=== PATIENT | female | born 1980 | race Caucasian/White ===

== ENCOUNTER 2016-10-07 12:10 | Emergency (ER) | payer MEDICAID ==
[2016-10-07] MEDS ORDERED: ONDANSETRON 4 MG TAB.RAPDIS PO ONE (12:23)
--- NOTE | 2016-10-07 12:23 | ER Document Report ---
ED Medical Screen (RME) - General Stated Complaint: ABDOMINAL PAIN Mode of Arrival: Wheelchair Information source: Patient Notes: Patient complains of abdominal pain that started after eating this morning. Patient complains of nausea and diarrhea. Patient denies any vomiting. Patient denies any fever or urinary symptoms. hx: Diabetes, cholecystectomy I have greeted and performed a rapid initial assessment of this patient. A comprehensive ED assessment and evaluation of the patient, analysis of test results and completion of the medical decision making process will be conducted by additional ED providers. TRAVEL OUTSIDE OF THE [place] IN LAST 30 DAYS: No - Related Data Allergies/Adverse Reactions: Penicillins Allergy (Verified 10/07/16 12:21) Past Medical History Endocrine Medical History: Reports: Hx Diabetes Mellitus Type 2 Renal/ Medical History: Reports: Hx Kidney Stones GI Medical History: Reports: Hx Ulcer, Hx Colonoscopy, Hx Endoscopy Psychiatric Medical History: Reports: Hx Depression Past Surgical History: Reports: Hx Section, Hx Cholecystectomy, Hx Kidney (Renal Surgery) - lazer for stones - Immunizations Immunizations up to date: Yes Hx Diphtheria, Pertussis, Tetanus Vaccination: Yes Physical Exam - Vital signs Vitals: Temp Pulse Resp BP Pulse Ox 98.1 F 94 18 113/69 98 10/07/16 12:20 10/07/16 12:20 10/07/16 12:20 10/07/16 12:20 10/07/16 12:20 - Abdominal Tenderness: Tender - Upper abdomen Course - Vital Signs Vital signs: Temp Pulse Resp BP Pulse Ox 98.1 F 94 18 113/69 98 10/07/16 12:20 10/07/16 12:20 10/07/16 12:20 10/07/16 12:20 10/07/16 12:20
[2016-10-07 13:00] LABS: ABSOLUTE BASOPHILS # (AUTO) 0.1 10^3/uL (0.0-0.2); ABSOLUTE EOSINOPHILS # (AUTO) 0.2 10^3/uL (0.0-0.6); ABSOLUTE LYMPHOCYTES (AUTO) 1.8 10^3/uL (0.5-4.7); ABSOLUTE MONOCYTES (AUTO) 0.5 10^3/uL (0.1-1.4); ABSOLUTE NEUT (AUTO) 8.1 10^3/uL (1.7-8.2); BASOPHILS % (AUTO) 0.6 % (0-2); EOSINOPHILS % (AUTO) 2.2 % (0-6); HEMATOCRIT 40.6 % (36.0-47.0); HEMOGLOBIN 12.9 g/dL (12.0-15.5); HGB HCT DIFFERENCE -1.9; LYMPHOCYTES % (AUTO) 17.1 % (13-45); MEAN CORPUSCULAR HEMOGLOBIN 26.9 pg (27.0-33.4); MEAN CORPUSCULAR HGB CONC 31.8 g/dL (32.0-36.0); MEAN CORPUSCULAR VOLUME 85 fl (80-97); MONOCYTES % (AUTO) 4.4 % (3-13); RED CELL DISTRIBUTION WIDTH 13.5 % (11.5-14.0); SEGMENTED NEUTROPHILS % (AUTO) 75.7 % (42-78); WHITE BLOOD COUNT 10.7 10^3/uL (4.0-10.5)
[2016-10-07 13:10] LABS: APPEARANCE,URINE CLEAR; BILIRUBIN,URINE NEGATIVE (NEGATIVE); GLUCOSE, URINE >=500 mg/dL (NEGATIVE); KETONES,URINE NEGATIVE (NEGATIVE); LEUKOCYTE ESTERASE,URINE NEGATIVE (NEGATIVE); NITRITE,URINE NEGATIVE (NEGATIVE); PROTEIN,URINE NEGATIVE (NEGATIVE); URINE SPECIFIC GRAVITY 1.031; UROBILINOGEN,URINE NEGATIVE mg/dL (<2.0)
[2016-10-07 13:19] LABS: ALANINE AMINOTRANSFERASE 20 U/L (9-52); ALBUMIN 3.7 g/dL (3.5-5.0); ALKALINE PHOSPHATASE 94 U/L (38-126); ANION GAP 13 (5-19); ASPARTATE AMINO TRANSFERASE 17 U/L (14-36); BILIRUBIN,TOTAL 0.3 mg/dL (0.2-1.3); BLOOD UREA NITROGEN 12 mg/dL (7-20); CALCIUM 9.7 mg/dL (8.4-10.2); CARBON DIOXIDE 30 mmol/L (22-30); CHLORIDE 94 mmol/L (98-107); LIPASE 170.9 U/L (23-300); POTASSIUM 5.1 mmol/L (3.6-5.0); SODIUM 137.2 mmol/L (137-145); TOTAL PROTEIN 7.3 g/dL (6.3-8.2)
[2016-10-07 13:29] LABS: GLUCOSE 525 mg/dL (75-110)
[2016-10-07] MEDS ORDERED: INSULIN REG, HUMAN 100 UNIT/ML 3 ML VIAL (PYX) SUBCUT ONE (13:37)
[2016-10-07] MEDS ORDERED: NORMAL SALINE 1000 ML 1,000 ML IV PRN (13:37)
[2016-10-07] MEDS ORDERED: DICYCLOMINE HCL INJ 20 MG/2 ML AMPULE IM PRN (13:46)
[2016-10-07] MEDS ORDERED: MORPHINE SULFATE 10 MG/ML INJ IV ONE (13:46)
[2016-10-07 15:26] VITALS: BP 112/68
--- NOTE | 2016-10-07 16:23 | ER Document Report ---
ED General - General Chief Complaint: Abdominal Pain Stated Complaint: ABDOMINAL PAIN Mode of Arrival: Wheelchair Information source: Patient Notes: 36 yr old female with hx of diabetes who takes 30 units of insulin daily presents with compalitns of abd pain and nausea. pt notes she ate this monirng, then had 4 episodes of diarrhea immediately. denies any fevers or chills TRAVEL OUTSIDE OF THE [place] IN LAST 30 DAYS: No - HPI Onset: Just prior to arrival Onset/Duration: Sudden Quality of pain: Sharp Severity: Mild Pain Level: 1 Associated symptoms: Diarrhea, Nausea, Vomiting Exacerbated by: Denies Relieved by: Denies Similar symptoms previously: No Recently seen / treated by doctor: No - Related Data Allergies/Adverse Reactions: Penicillins Allergy (Verified 10/07/16 12:21) Past Medical History - General Information source: Patient - Social History Smoking Status: Never Smoker Cigarette use (# per day): No Chew tobacco use (# tins/day): No Smoking Education Provided: No Frequency of alcohol use: None Drug Abuse: None Family History: Arthritis, CVA, DM, Hypertension, Malignancy Patient has suicidal ideation: No Patient has homicidal ideation: No Endocrine Medical History: Reports: Hx Diabetes Mellitus Type 2 Renal/ Medical History: Reports: Hx Kidney Stones. Denies: Hx Peritoneal Dialysis GI Medical History: Reports: Hx Ulcer, Hx Colonoscopy, Hx Endoscopy Psychiatric Medical History: Reports: Hx Depression Past Surgical History: Reports: Hx Section, Hx Cholecystectomy, Hx Kidney (Renal Surgery) - lazer for stones - Immunizations Immunizations up to date: Yes Hx Diphtheria, Pertussis, Tetanus Vaccination: Yes Review of Systems - Review of Systems Notes: REVIEW OF SYSTEMS: CONSTITUTIONAL : Denies fever, chills, or sweats. Denies recent illness. EENT: Denies eye, ear, throat, or mouth pain or symptoms. Denies nasal or sinus congestion or discharge. Denies throat, tongue, or mouth swelling or difficulty swallowing. CARDIOVASCULAR: Denies chest pain. Denies palpitations or racing or irregular heart beat. Denies ankle edema. RESPIRATORY: Denies cough, cold, or chest congestion. Denies shortness of breath, difficulty breathing, or wheezing. GASTROINTESTINAL: Admits to abdominal pain nausea vomiting diarrhea GENITOURINARY: Denies difficulty urinating, painful urination, burning, frequency, blood in urine, or discharge. FEMALE GENITOURINARY: Denies vaginal bleeding, heavy or abnormal periods, irregular periods. Denies vaginal discharge or odor. MUSCULOSKELETAL: Denies back or neck pain or stiffness. Denies joint pain or swelling. SKIN: Denies rash, lesions or sores. HEMATOLOGIC : Denies easy bruising or bleeding. LYMPHATIC: Denies swollen, enlarged glands. NEUROLOGICAL: Denies confusion or altered mental status. Denies passing out or loss of consciousness. Denies dizziness or lightheadedness. Denies headache. Denies weakness or paralysis or loss of use of either side. Denies problems with gait or speech. Denies sensory loss, numbness, or tingling. Denies seizures. PSYCHIATRIC: Denies anxiety or stress. Denies depression, suicidal ideation, or homicidal ideation. ALL OTHER SYSTEMS REVIEWED AND NEGATIVE. Dictation was performed using [employer] voice recognition software PHYSICAL EXAMINATION: GENERAL: Well-appearing, well-nourished and in no acute distress. HEAD: Atraumatic, normocephalic. EYES: Pupils equal round and reactive to light, extraocular movements intact, conjunctiva are normal. ENT: Nares patent, oropharynx clear without exudates. Moist mucous membranes. NECK: Normal range of motion, supple without lymphadenopathy LUNGS: Breath sounds clear to auscultation bilaterally and equal. No wheezes rales or rhonchi. HEART: Regular rate and rhythm without murmurs ABDOMEN: Soft, nontender, nondistended abdomen. No guarding, no rebound. No masses appreciated. Female : deferred Musculoskeletal: Normal range of motion, no pitting or edema. No cyanosis. NEUROLOGICAL: Cranial nerves grossly intact. Normal speech, normal gait. Normal sensory, motor exams PSYCH: Normal mood, normal affect. SKIN: Warm, Dry, normal turgor, no rashes or lesions noted. Physical Exam - Vital signs Vitals: Temp Pulse Resp BP Pulse Ox 98.1 F 94 18 113/69 98 10/07/16 12:20 10/07/16 12:20 10/07/16 12:20 10/07/16 12:20 10/07/16 12:20 Course - Re-evaluation Re-evalutation: 10/07/16 16:26 On evaluation patient is in no distress. Her glucose has improved significantly with insulin fluids. Patient's pain has completely resolved and has no tenderness on palpation. 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 Also, there is no evidence or peritonitis , sepsis, or toxicity. The patient and I have discussed the diagnosis and risks , and we agree with discharging home with close follow-up with the understanding that symptoms and presentations can change. We also discussed returning to the Emergency Department immediately if new or worsening symptoms occur. We have discussed the symptoms which are most concerning (e.g., bloody stool, fever, changing or worsening pain, vomiting) that necessitate immediate return. - Vital Signs Vital signs: Temp Pulse Resp BP Pulse Ox 98.1 F 90 16 112/68 96 10/07/16 12:20 10/07/16 15:25 10/07/16 15:25 10/07/16 15:25 10/07/16 15:25 - Laboratory Result Diagrams: 10/07/16 12:30 10/07/16 12:30 Laboratory results interpreted by me: 10/07/16 10/07/16 10/07/16 12:30 12:30 12:30 WBC 10.7 H MCH 26.9 L MCHC 31.8 L Potassium 5.1 H Chloride 94 L Glucose 525 H* POC Glucose Urine Glucose (UA) >=500 H Urine Blood SMALL H 10/07/16 10/07/16 15:01 16:06 WBC MCH MCHC Potassium Chloride Glucose POC Glucose 253 H 229 H Urine Glucose (UA) Urine Blood Critical Care Note - Critical Care Note Total time excluding time spent on procedures (mins): 34 Comments: 34 minutes of critical care time spent in direct contact evaluating and reevaluating the patient, treating symptoms, reviewing labs and studies and speaking with family and consultants excluding any procedures Discharge - Discharge Clinical Impression: Hyperglycemia, Nausea, vomiting, and diarrhea Diabetes Qualifiers: Diabetes mellitus type: type 2 Diabetes mellitus complication status: without complication 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 Not all high blood sugar requires long-term treatment. High blood sugar can be due to medications, , or the stress of illness. (These cases are "borderline diabetes.") If the doctor feels your high blood sugar might resolve with time, you may not require treatment now. You will be scheduled for further evaluation. It's very important that you follow through, to see if the blood sugar returns to normal levels. Uncontrolled high blood sugar leads to early heart disease, strokes, nerve damage, eye damage, and kidney damage. Call the physician if there is faintness, excess sleepiness, or very rapid breathing. Prescriptions: Promethazine HCl [Phenergan 25 mg Tablet] 1 - 2 tab PO Q6H PRN #15 tablet PRN Reason: Forms: Return to Work
== END 2016-10-07 16:25 | disposition home or self-care (01) ==
LOC: ER 12:10
DX: E11.65 Type 2 diabetes mellitus with hyperglycemia (principal); R11.2 Nausea with vomiting, unspecified; R19.7 Diarrhea, unspecified; R10.84 Generalized abdominal pain; Z79.4 Long term (current) use of insulin
CPT/HCPCS: 99285; 96372; 96361; 96374; 36415; 82962; 83690; 85025; 81025; 80053; 81001; J0500; S0119; J2270; J1815; J7030

== ENCOUNTER 2016-10-20 16:36 | Emergency (ER) | payer MEDICAID ==
--- NOTE | 2016-10-20 16:49 | ER Document Report ---
ED Medical Screen (RME) - General Stated Complaint: BLOOD SUGAR ISSUE Notes: elevated blood sugar for 3 days feels like she is not taking enough insulin and was referred over by her PCP I have greeted and performed a rapid initial assessment of this patient. A comprehensive ED assessment and evaluation of the patient, analysis of test results and completion of the medical decision making process will be conducted by additional ED providers. TRAVEL OUTSIDE OF THE [place] IN LAST 30 DAYS: No - Related Data Allergies/Adverse Reactions: Penicillins Allergy (Verified 10/20/16 16:45) Past Medical History Endocrine Medical History: Reports: Hx Diabetes Mellitus Type 2 Renal/ Medical History: Reports: Hx Kidney Stones. Denies: Hx Peritoneal Dialysis GI Medical History: Reports: Hx Ulcer, Hx Colonoscopy, Hx Endoscopy Psychiatric Medical History: Reports: Hx Depression Past Surgical History: Reports: Hx Section, Hx Cholecystectomy, Hx Kidney (Renal Surgery) - lazer for stones - Immunizations Immunizations up to date: Yes Hx Diphtheria, Pertussis, Tetanus Vaccination: Yes Physical Exam - Vital signs Vitals: Temp Pulse Resp BP Pulse Ox 98.0 F 90 16 120/81 97 10/20/16 16:44 10/20/16 16:44 10/20/16 16:44 10/20/16 16:44 10/20/16 16:44 Course - Vital Signs Vital signs: Temp Pulse Resp BP Pulse Ox 98.0 F 90 16 120/81 97 10/20/16 16:44 10/20/16 16:44 10/20/16 16:44 10/20/16 16:44 10/20/16 16:44
[2016-10-20 17:24] LABS: VENOUS BLOOD BASE EXCESS 4.2 mmol/L; VENOUS BLOOD PCO2 63.8 mmHg (35-63); VENOUS BLOOD PH 7.33 (7.30-7.42)
[2016-10-20 17:26] LABS: ABSOLUTE BASOPHILS # (AUTO) 0.1 10^3/uL (0.0-0.2); ABSOLUTE EOSINOPHILS # (AUTO) 0.2 10^3/uL (0.0-0.6); ABSOLUTE LYMPHOCYTES (AUTO) 2.7 10^3/uL (0.5-4.7); ABSOLUTE MONOCYTES (AUTO) 0.5 10^3/uL (0.1-1.4); ABSOLUTE NEUT (AUTO) 6.6 10^3/uL (1.7-8.2); BASOPHILS % (AUTO) 0.8 % (0-2); EOSINOPHILS % (AUTO) 2.1 % (0-6); HEMATOCRIT 37.3 % (36.0-47.0); HEMOGLOBIN 12.1 g/dL (12.0-15.5); LYMPHOCYTES % (AUTO) 26.5 % (13-45); MEAN CORPUSCULAR HEMOGLOBIN 26.8 pg (27.0-33.4); MEAN CORPUSCULAR HGB CONC 32.4 g/dL (32.0-36.0); MEAN CORPUSCULAR VOLUME 83 fl (80-97); MONOCYTES % (AUTO) 5.3 % (3-13); RED BLOOD COUNT 4.51 10^6/uL (3.72-5.28); RED CELL DISTRIBUTION WIDTH 13.5 % (11.5-14.0); SEGMENTED NEUTROPHILS % (AUTO) 65.3 % (42-78)
[2016-10-20 17:29] LABS: APPEARANCE,URINE CLOUDY; BILIRUBIN,URINE NEGATIVE (NEGATIVE); GLUCOSE, URINE >=500 mg/dL (NEGATIVE); KETONES,URINE NEGATIVE (NEGATIVE); LEUKOCYTE ESTERASE,URINE LARGE (NEGATIVE); NITRITE,URINE POSITIVE (NEGATIVE); PROTEIN,URINE NEGATIVE (NEGATIVE); URINE SPECIFIC GRAVITY 1.029; UROBILINOGEN,URINE NEGATIVE mg/dL (<2.0)
[2016-10-20 17:43] LABS: ALANINE AMINOTRANSFERASE 29 U/L (9-52); ALBUMIN 4.2 g/dL (3.5-5.0); ALKALINE PHOSPHATASE 76 U/L (38-126); ANION GAP 13 (5-19); ASPARTATE AMINO TRANSFERASE 14 U/L (14-36); BILIRUBIN,TOTAL 0.5 mg/dL (0.2-1.3); BLOOD UREA NITROGEN 14 mg/dL (7-20); CALCIUM 9.8 mg/dL (8.4-10.2); CARBON DIOXIDE 30 mmol/L (22-30); CHLORIDE 96 mmol/L (98-107); CREATININE RESULT 0.78 mg/dL (0.52-1.25); GLUCOSE 328 mg/dL (75-110); LIPASE 225.6 U/L (23-300); POTASSIUM 4.4 mmol/L (3.6-5.0); SODIUM 138.5 mmol/L (137-145); TOTAL PROTEIN 7.7 g/dL (6.3-8.2)
[2016-10-20] MEDS ORDERED: CEFTRIAXONE 1 GM/D5W RTU 50 ML IV ONE (18:16)
[2016-10-20] MEDS ORDERED: NORMAL SALINE 1000 ML 1,000 ML IV ONE (18:16)
--- NOTE | 2016-10-20 19:14 | ER Document Report ---
ED General - General Mode of Arrival: Ambulatory Information source: Patient TRAVEL OUTSIDE OF THE [place] IN LAST 30 DAYS: No - HPI Onset: Other - see HPI note Quality of pain: Sharp Associated symptoms: Chest pain Exacerbated by: Movement <SITA GOLDMAN - Last Filed: 10/20/16 23:59> <HARRISZOLTAN ANN - Last Filed: 10/21/16 01:19> - General Chief Complaint: High Blood Sugar Stated Complaint: BLOOD SUGAR ISSUE Notes: Patient is a 26-year-old female presenting to the emergency department with complaints of chest pain and increased blood glucose levels. Patient states that she has also had some dysuria. Patient states that her blood sugar is high when she has urinary tract infections. Patient's chest pain is reproducible and is exacerbated with movement. Patient denies any history of blood clots. Patient is allergic to penicillin. (SITA GOLDMAN) - Related Data Allergies/Adverse Reactions: Penicillins Allergy (Verified 10/20/16 16:45) Past Medical History - General Information source: Patient - Social History Smoking Status: Unknown if Ever Smoked Chew tobacco use (# tins/day): No Frequency of alcohol use: None Drug Abuse: None Family History: Arthritis, CVA, DM, Hypertension, Malignancy Patient has suicidal ideation: No Patient has homicidal ideation: No Endocrine Medical History: Reports: Hx Diabetes Mellitus Type 2 Renal/ Medical History: Reports: Hx Kidney Stones GI Medical History: Reports: Hx Ulcer, Hx Colonoscopy, Hx Endoscopy Psychiatric Medical History: Reports: Hx Depression Past Surgical History: Reports: Hx Section, Hx Cholecystectomy, Hx Kidney (Renal Surgery) - lazer for stones - Immunizations Immunizations up to date: Yes Hx Diphtheria, Pertussis, Tetanus Vaccination: Yes <SITA GOLDMAN - Last Filed: 10/20/16 23:59> Review of Systems - Review of Systems Constitutional: No symptoms reported EENT: No symptoms reported Cardiovascular: See HPI, Chest pain Respiratory: No symptoms reported Gastrointestinal: No symptoms reported Genitourinary: See HPI, Burning, Dysuria Female Genitourinary: No symptoms reported Musculoskeletal: No symptoms reported Skin: No symptoms reported Hematologic/Lymphatic: No symptoms reported Neurological/Psychological: No symptoms reported -: Yes All other systems reviewed and negative <SITA GOLDMAN - Last Filed: 10/20/16 23:59> Physical Exam - Vital signs Interpretation: Normal - General General appearance: Appears well, Alert - HEENT Head: Normocephalic, Atraumatic Eyes: Normal Pupils: PERRL Mucous membranes: Dry - Respiratory Respiratory status: No respiratory distress Chest status: Tender - right chest wall tenderness to palpation, Pain on movement Breath sounds: Normal Chest palpation: Normal - Cardiovascular Rhythm: Regular Heart sounds: Normal auscultation Murmur: No - Abdominal Inspection: Normal Distension: No distension Bowel sounds: Normal Tenderness: Nontender Organomegaly: No organomegaly - Back Back: Normal, Nontender - Extremities General upper extremity: Normal inspection, Nontender, Normal color, Normal ROM , Normal temperature General lower extremity: Normal inspection, Nontender, Normal color, Normal ROM , Normal temperature, Normal weight bearing. No: Foster's sign - Neurological Neuro grossly intact: Yes Cognition: Normal Orientation: AAOx4 [place] Coma Scale Eye Opening: Spontaneous [place] Coma Scale Verbal: Oriented [place] Coma Scale Motor: Obeys Commands [place] Coma Scale Total: 15 Speech: Normal Motor strength normal: LUE, RUE, LLE, RLE Sensory: Normal - Psychological Associated symptoms: Normal affect, Normal mood - Skin Skin Temperature: Warm Skin Moisture: Dry Skin Color: Normal <ZOLTAN IGLESIAS - Last Filed: 10/21/16 01:19> - Vital signs Vitals: Temp Pulse Resp BP Pulse Ox 98.0 F 90 16 120/81 97 10/20/16 16:44 10/20/16 16:44 10/20/16 16:44 10/20/16 16:44 10/20/16 16:44 (SITA GOLDMAN) (ZOLTAN IGLESIAS) Course - Laboratory Result Diagrams: 10/20/16 17:00 10/20/16 17:00 <SITA GOLDMAN - Last Filed: 10/20/16 23:59> - Laboratory Result Diagrams: 10/20/16 17:00 10/20/16 17:00 - Diagnostic Test Radiology reviewed: Image reviewed, Reports reviewed - EKG Interpretation by [facility] EKG shows normal: Sinus rhythm Rate: Normal Rhythm: NSR <ZOLTAN IGLESIAS - Last Filed: 10/21/16 01:19> - Re-evaluation Re-evalutation: 10/20 Patient is a 36-year-old female who comes in for hyperglycemia. Patient has UTI will be given antibiotics for cystitis. Patient has reproducible chest wall pain. EKG and troponin negative. Patient's blood sugar has come down to the 200s. Patient is instructed to take antibiotics, drink plenty of fluids and follow-up with her doctor. Understands and agrees with plan. Feels better. Stable for discharge. (ZOLTAN IGLESIAS) - Vital Signs Vital signs: Temp Pulse Resp BP Pulse Ox 98.3 F 90 18 109/68 99 10/20/16 20:56 10/20/16 20:56 10/20/16 20:56 10/20/16 20:56 10/20/16 20:56 (SITA GOLDMAN) (ZOLTAN IGLESIAS) - Laboratory Laboratory results interpreted by me: 10/20/16 10/20/16 10/20/16 16:55 17:00 17:00 MCH 26.8 L VBG pCO2 VBG HCO3 Chloride 96 L Glucose 328 H POC Glucose 317 H Urine Glucose (UA) Urine Blood Urine Nitrite Ur Leukocyte Esterase 10/20/16 10/20/16 17:00 17:00 MCH VBG pCO2 63.8 H VBG HCO3 33.0 H Chloride Glucose POC Glucose Urine Glucose (UA) >=500 H Urine Blood MODERATE H Urine Nitrite POSITIVE H Ur Leukocyte Esterase LARGE H (SITA GOLDMAN) (ZOLTAN IGLESIAS) Discharge <SITA GOLDMAN - Last Filed: 10/20/16 23:59> <ZOLTAN IGLESIAS - Last Filed: 10/21/16 01:19> - Discharge Clinical Impression: Chest wall pain UTI (urinary tract infection) Qualifiers: Urinary tract infection type: site unspecified Hematuria presence: with hematuria Qualified Code(s): N39.0 - Urinary tract infection, site not specified ; R31.9 - Hematuria, unspecified Condition: Stable Disposition: HOME, SELF-CARE Instructions: Urinary Tract Infection ([facility]), Chest Wall Pain ([facility]) Prescriptions: Cefdinir [Omnicef 300 mg Capsule] 1 cap PO BID #14 capsule Tramadol HCl [Ultram 50 mg Tablet] 50 mg PO ASDIR PRN #14 tablet PRN Reason: Forms: Return to Work Referrals: RADHA LEGER PA-C [Primary Care Provider] - Follow up as needed Scribe Attestation: 10/21/16 01:19 I personally performed the services described in the documentation, reviewed and edited the documentation which was dictated to the scribe in my presence, and it accurately records my words and actions. (ZOLTAN IGLESIAS) Scribe Documentation - Scribe Written by Scribe:: Sita Goldman 10/21/16 00:03 acting as scribe for :: Harris <SITA GOLDMAN - Last Filed: 10/20/16 23:59>
[2016-10-20] MEDS ORDERED: OXYCODONE-ACETAMINOPHEN 5-325 MG TABLET PO ONE (20:08)
[2016-10-20 20:58] VITALS: BP 109/68
--- NOTE | 2016-10-21 00:06 | EKG REPORT ---
SEVERITY:- BORDERLINE ECG - SINUS RHYTHM INFERIOR Q WAVES, PROBABLY NORMAL VARIATION BORDERLINE T ABNORMALITIES, ANTERIOR LEADS : Confirmed by: Susan Vance 21-Oct-2016 00:06:02
== END 2016-10-20 20:56 | disposition home or self-care (01) ==
LOC: ER 16:36
DX: N39.0 Urinary tract infection, site not specified (principal); R07.89 Other chest pain; E11.9 Type 2 diabetes mellitus without complications; Z87.442 Personal history of urinary calculi; Z90.49 Acquired absence of other specified parts of digestive tract; Z88.0 Allergy status to penicillin
CPT/HCPCS: 93005; 99283; 96365; 36415; 82962; 83690; 85025; 80053; 81001; 84484; 82803; 93010; J7030; J0696

== ENCOUNTER 2016-11-21 17:22 | Emergency (ER) | payer MEDICAID ==
[2016-11-21 17:30] VITALS: BP 137/76
--- NOTE | 2016-11-21 17:31 | ER Document Report ---
ED Medical Screen (RME) - General Stated Complaint: TOOTH PAIN Time seen by provider: 17:31 Notes: Patient woke up this morning with left lower toothache. Since then, swelling to left jaw has started. No fever. Patient is diabetic, but states her sugar has been under control. I have greeted and performed a rapid initial assessment of this patient. A comprehensive ED assessment and evaluation of the patient, analysis of test results and completion of the medical decision making process will be conducted by additional ED providers. TRAVEL OUTSIDE OF THE [place] IN LAST 30 DAYS: No - Related Data Allergies/Adverse Reactions: Penicillins Allergy (Verified 10/20/16 16:45) Past Medical History Endocrine Medical History: Reports: Hx Diabetes Mellitus Type 2 Renal/ Medical History: Reports: Hx Kidney Stones. Denies: Hx Peritoneal Dialysis GI Medical History: Reports: Hx Ulcer, Hx Colonoscopy, Hx Endoscopy Psychiatric Medical History: Reports: Hx Depression Past Surgical History: Reports: Hx Section, Hx Cholecystectomy, Hx Kidney (Renal Surgery) - lazer for stones - Immunizations Immunizations up to date: Yes Hx Diphtheria, Pertussis, Tetanus Vaccination: Yes Physical Exam - Vital signs Vitals: Temp Pulse Resp BP Pulse Ox 97.6 F 90 16 137/76 H 100 11/21/16 17:29 11/21/16 17:29 11/21/16 17:29 11/21/16 17:29 11/21/16 17:29 - HEENT Head: Other - Facial swelling noted to left lower jaw. Teeth diagram: 1 - broken and decayed tooth, + swelling. Also has multiple missing teeth. Course - Vital Signs Vital signs: Temp Pulse Resp BP Pulse Ox 97.6 F 90 16 137/76 H 100 11/21/16 17:29 11/21/16 17:29 11/21/16 17:29 11/21/16 17:29 11/21/16 17:29
--- NOTE | 2016-11-21 18:47 | ER Document Report ---
ED Oral Problem - General Chief Complaint: Toothache Stated Complaint: TOOTH PAIN Mode of Arrival: Ambulatory Information source: Patient Notes: 36-year-old female presents to the emergency department complaining of left lower dental pain since this morning. Patient reports has decayed molar that intermittently causes her pain but has worsened since this morning. Reports associated localized swelling. Denies fever, drainage, difficulty swallowing or breathing. States cannot follow-up with dental provider until next week. TRAVEL OUTSIDE OF THE [place] IN LAST 30 DAYS: No - HPI Patient complains to provider of: Toothache Onset: This morning Onset: Gradual Quality of pain: Achy Severity: Moderate Pain Level: 3 Associated symptoms: Dental decay, Toothache. denies: Difficulty speaking, Drooling, Unable to swallow Similar symptoms previously: Yes Recently seen / treated by doctor/dentist: No - Related Data Allergies/Adverse Reactions: Penicillins Allergy (Verified 11/21/16 17:32) Past Medical History - General Information source: Patient - Social History Smoking Status: Never Smoker Chew tobacco use (# tins/day): No Frequency of alcohol use: None Drug Abuse: None Lives with: Family Family History: Arthritis, CVA, DM, Hypertension, Malignancy Patient has suicidal ideation: No Patient has homicidal ideation: No Endocrine Medical History: Reports: Hx Diabetes Mellitus Type 2 Renal/ Medical History: Reports: Hx Kidney Stones. Denies: Hx Peritoneal Dialysis GI Medical History: Reports: Hx Ulcer, Hx Colonoscopy, Hx Endoscopy Psychiatric Medical History: Reports: Hx Depression Past Surgical History: Reports: Hx Section, Hx Cholecystectomy, Hx Kidney (Renal Surgery) - lazer for stones - Immunizations Immunizations up to date: Yes Hx Diphtheria, Pertussis, Tetanus Vaccination: Yes Review of Systems - Review of Systems Constitutional: No symptoms reported EENT: See HPI Cardiovascular: No symptoms reported Respiratory: No symptoms reported Gastrointestinal: No symptoms reported Genitourinary: No symptoms reported Female Genitourinary: No symptoms reported Musculoskeletal: No symptoms reported Skin: No symptoms reported Hematologic/Lymphatic: No symptoms reported Neurological/Psychological: No symptoms reported -: Yes All other systems reviewed and negative Physical Exam - Vital signs Vitals: Temp Pulse Resp BP Pulse Ox 97.6 F 90 16 137/76 H 100 11/21/16 17:29 11/21/16 17:29 11/21/16 17:29 11/21/16 17:29 11/21/16 17:29 Interpretation: Normal - General General appearance: Appears well, Alert - HEENT Head: Normocephalic, Atraumatic Eyes: Normal Eyelashes: Normal Pupils: PERRL Ears: Normal External canal: Normal Tympanic membrane: Normal Sinus: Normal Nasal: Normal Mouth/Lips: Caries. No: Angioedema Mucous membranes: Normal, Moist Teeth diagram: 1 - Tenderness with palpation, mild localized swelling without drainage or fluctuance Pharynx: Normal. No: Blood in hypopharynx, Erythema, Exudate, Peritonsillar abscess, Post nasal drainage, Retropharyngeal abscess, Tonsillar hypertrophy, Uvular edema, Potential airway comprom., Other Neck: Normal. No: Anterior cervical chain, Posterior cervical chain, Lymphadenopathy, Meningismus, Subcutaneous emphysema - Respiratory Respiratory status: No respiratory distress Chest status: Nontender Breath sounds: Normal Chest palpation: Normal - Cardiovascular Rhythm: Regular Heart sounds: Normal auscultation Pulses: Normal: Radial Normal capillary refill: Yes - Back Back: Normal, Nontender - Neurological Neuro grossly intact: Yes Cognition: Normal Orientation: AAOx4 Thicket Coma Scale Eye Opening: Spontaneous Thicket Coma Scale Verbal: Oriented Thicket Coma Scale Motor: Obeys Commands Shavonne Coma Scale Total: 15 Speech: Normal Motor strength normal: LUE, RUE, LLE, RLE Sensory: Normal - Psychological Associated symptoms: Normal affect, Normal mood - Skin Skin Temperature: Warm Skin Moisture: Dry Skin Color: Normal Course - Re-evaluation Re-evalutation: 11/21/16 18:45 Patient hemodynamically stable, in no distress, afebrile. No trismus, abscess, or suggestion of emergent deep space or soft tissue infection at this time. Patient appears stable for discharge and agrees with home care, follow-up with dental provider, and ED return precautions. - Vital Signs Vital signs: Temp Pulse Resp BP Pulse Ox 97.6 F 90 16 137/76 H 100 11/21/16 17:29 11/21/16 17:29 11/21/16 17:29 11/21/16 17:29 11/21/16 17:29 Discharge - Discharge Clinical Impression: Pain, dental Condition: Stable Disposition: HOME, SELF-CARE Additional Instructions: TOOTHACHE: Your pain is due to dental decay. The tooth must be repaired in order for you to feel better. You will, therefore, be referred to a dentist. We do not have dentists on the staff at [facility]. Severe swelling or drainage around a tooth usually means a dental abscess. This also requires evaluation and treatment by the dentist, but antibiotics may be prescribed while awaiting dental treatment. You should be rechecked immediately if you develop major swelling of the face, increasing pain, a lump in the jaw or gums, headache, difficulty swallowing, or fever. Dental Infection or Abscess You have an infection, perhaps an abscess (pus formation) of the gum around one of your teeth, which is probably decayed. If there is an abscess, it may drain on its own or it may need to be opened or lanced. Severe swelling or drainage around a tooth usually means a deep dental abscess which usually requires evaluation and treatment by a dentist or oral surgeon. Antibiotics may be prescribed while awaiting dental treatment. If you develop high fever with chills, worsening pain, or increasing swelling in the area, see a dentist or oral surgeon immediately or return to the Emergency Department immediately. CLINDAMYCIN: You have been given a prescription for the antibiotic clindamycin. It is often prescribed for infections in the mouth, such as dental infections or abscesses, and for skin infections due to MRSA. It's important that you take all the medication, unless instructed otherwise by your physician. Failure to complete the entire course can result in relapse of your condition. Common side effects of antibiotics include nausea, intestinal cramping, or diarrhea. Women may develop vaginal yeast infections, and babies can get yeast (thrush) in the mouth following the use of antibiotics. Contact your physician if you develop significant side effects from this medication. Allergy to this antibiotic can result in hives, wheezing, faintness, or itching. If symptoms of allergy occur, stop the medication and call the doctor. Anti-Inflammatory Medication You have received a prescription for an antiinflammatory agent. This is an excellent, safe drug for pain control. In addition, it has potent antiinflammatory effects which are beneficial, especially in the treatment of injuries, arthritis, or tendonitis. It's best to take this medicine with food. Persons with ulcer disease or allergy to aspirin should notify their physician of this before taking this drug. Take the medication exactly as prescribed. Don't take additional doses unless instructed to do so by your doctor. If you develop wheezing, shortness of breath, hives, faintness, stomach pain, vomiting, or dark black stools, return for re-evaluation at once. FOLLOW-UP CARE: You have been referred for follow-up care to the dentists listed below. Call the dentists office for an appointment as you were instructed or within the next two days. If you experience worsening or a significant change in your symptoms, notify the physician immediately or return to the Emergency Department at any time for re-evaluation. [facility] [address] [place], [place] Thursday mornings, by appointment [facility] [address] [place] [address] [facility] [address] [facility] [address] [facility] ([facility]) [facility], [facility] [address] [facility] [email or web address] [address] [place] [address] Thursday- 8:00am to 5:00 pm Will see patients from other [facility]. Charges based on income and family size and accepts Medicare, Medicaid, and Insurances Will pull molars [facility] [id number] Hours of Operation 8:00 am - 4:30 pm weekdays The following dental offices accept Medicaid: [facility] [address] Dr. [address] Dr. Davidson Mervin Lindsey Lutsavage, and Maggy oral surgery Dr. Frederick ([place]) Dr. Cardona ([place]) [facility] Drs. Ugalde and Syd ([place]) Dr. Newsome ([place]) [facility] Dr. Chavez ([place]) Drs. Nielson and ([place]) Medicaid Care Line Prescriptions: Clindamycin HCl 300 mg PO Q6H #28 capsule Naproxen [Naprosyn 375 Mg Tablet] 375 mg PO BIDP PRN #10 tablet PRN Reason: Forms: Elevated Blood Pressure Referrals: RADHA LEGER PA-C [NO LOCAL MD] - Follow up as needed
== END 2016-11-21 18:55 | disposition home or self-care (01) ==
LOC: ER 17:22
DX: K08.89 Other specified disorders of teeth and supporting structures (principal)
CPT/HCPCS: 99282

== ENCOUNTER 2017-04-22 14:04 | Emergency (ER) | payer OTHER, MEDICAID ==
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
[2017-04-22] MEDS ORDERED: NAPROXEN 250 MG TABLET PO ONE (14:19)
[2017-04-22] MEDS ORDERED: HYDROCODONE/ACETAMINOPHEN 5-325 MG TABLET PO ONE (14:19)
[2017-04-22] MEDS ORDERED: METHOCARBAMOL 500 MG TABLET PO ONE (14:57)
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
[2017-04-22 15:50] VITALS: BP 128/67
== END 2017-04-22 15:48 | disposition home or self-care (01) ==
LOC: ER 14:04
DX: S16.1XXA Strain of muscle, fascia and tendon at neck level, initial encounter (principal); S39.012A Strain of muscle, fascia and tendon of lower back, initial encounter; V49.40XA Driver injured in collision with unspecified motor vehicles in traffic accident, initial encounter; M54.2 Cervicalgia; M54.9 Dorsalgia, unspecified; E11.9 Type 2 diabetes mellitus without complications
CPT/HCPCS: 72125; 81025; 99284

== ENCOUNTER 2017-08-03 13:41 | Emergency (ER) | payer MEDICAID, OTHER ==
[2017-08-03] MEDS ORDERED: NORMAL SALINE 1000 ML 1,000 ML IV ONE (15:00)
[2017-08-03] MEDS ORDERED: KETOROLAC TROMETHAMINE INJ/PF 30 MG/1 ML SDV IV ONE (15:00)
--- NOTE | 2017-08-03 15:31 | ER Document Report ---
ED Medical Screen (RME) - General Chief Complaint: Neck Problem Stated Complaint: BUMP ON NECK Time Seen by Provider: 08/03/17 14:59 Notes: Patient states that she started yesterday with a "sore" on her neck. Today has become more swollen and painful. No fevers. No previous history of similar reactions. No other rashes. She denies any IV drug use. TRAVEL OUTSIDE OF THE [place] IN LAST 30 DAYS: No - Related Data Allergies/Adverse Reactions: Penicillins Allergy (Verified 08/03/17 13:46) Home Medications: Current Home Medications Insulin Aspart [Novolog Insulin 100 Unit/1 ml 10 ml] 20 unit SUBCUT ASDIR PRN [History] Past Medical History Endocrine Medical History: Reports: Hx Diabetes Mellitus Type 2 Renal/ Medical History: Reports: Hx Kidney Stones. Denies: Hx Peritoneal Dialysis GI Medical History: Reports: Hx Ulcer, Hx Colonoscopy, Hx Endoscopy Psychiatric Medical History: Reports: Hx Depression Past Surgical History: Reports: Hx Section, Hx Cholecystectomy, Hx Kidney (Renal Surgery) - lazer for stones - Immunizations Immunizations up to date: Yes Hx Diphtheria, Pertussis, Tetanus Vaccination: Yes Physical Exam - Vital signs Vitals: Temp Pulse Resp BP Pulse Ox 98.7 F 86 16 121/79 100 08/03/17 13:48 08/03/17 13:48 08/03/17 13:48 08/03/17 13:48 08/03/17 13:48 Course - Vital Signs Vital signs: Temp Pulse Resp BP Pulse Ox 98.7 F 86 16 121/79 100 08/03/17 13:48 08/03/17 13:48 08/03/17 13:48 08/03/17 13:48 08/03/17 13:48 - Laboratory Result Diagrams: 08/03/17 15:20 08/03/17 15:20
[2017-08-03 15:36] LABS: ABSOLUTE EOSINOPHILS # (AUTO) 0.2 10^3/uL (0.0-0.6); ABSOLUTE LYMPHOCYTES (AUTO) 2.6 10^3/uL (0.5-4.7); ABSOLUTE MONOCYTES (AUTO) 0.7 10^3/uL (0.1-1.4); BASOPHILS % (AUTO) 0.4 % (0-2); EOSINOPHILS % (AUTO) 1.7 % (0-6); HEMATOCRIT 35.6 % (36.0-47.0); HGB HCT DIFFERENCE 0.4; LYMPHOCYTES % (AUTO) 20.7 % (13-45); MEAN CORPUSCULAR HEMOGLOBIN 26.5 pg (27.0-33.4); MEAN CORPUSCULAR HGB CONC 33.8 g/dL (32.0-36.0); MEAN CORPUSCULAR VOLUME 78 fl (80-97); MONOCYTES % (AUTO) 5.9 % (3-13); RED BLOOD COUNT 4.54 10^6/uL (3.72-5.28); RED CELL DISTRIBUTION WIDTH 14.4 % (11.5-14.0); SEGMENTED NEUTROPHILS % (AUTO) 71.3 % (42-78); WHITE BLOOD COUNT 12.6 10^3/uL (4.0-10.5)
[2017-08-03 15:51] LABS: ALANINE AMINOTRANSFERASE 27 U/L (9-52); ALBUMIN 4.2 g/dL (3.5-5.0); ALKALINE PHOSPHATASE 83 U/L (38-126); ANION GAP 12 (5-19); ASPARTATE AMINO TRANSFERASE 20 U/L (14-36); BILIRUBIN,DIRECT 0.3 mg/dL (0.0-0.4); BILIRUBIN,TOTAL 0.6 mg/dL (0.2-1.3); BLOOD UREA NITROGEN 11 mg/dL (7-20); CALCIUM 9.7 mg/dL (8.4-10.2); CARBON DIOXIDE 29 mmol/L (22-30); CHLORIDE 100 mmol/L (98-107); CREATININE RESULT 0.61 mg/dL (0.52-1.25); GLUCOSE 330 mg/dL (75-110); POTASSIUM 4.8 mmol/L (3.6-5.0); SODIUM 141.2 mmol/L (137-145); TOTAL PROTEIN 7.5 g/dL (6.3-8.2)
--- NOTE | 2017-08-03 17:27 | RADIOLOGY REPORT (SQ) ---
EXAM DESCRIPTION: CT SOFT TISSUE NECK WITH COMPLETED DATE/TIME: 08/03/2017 5:02 pm REASON FOR STUDY: pain/swelling right neck COMPARISON: Cervical spine CT 04/22/2017. TECHNIQUE: Post IV contrasted scanning from skull base through lung apices with review of bone, soft tissue and lung windows. Reconstructed coronal and sagittal MPR images reviewed. All images stored on PACS. All CT scanners at this facility use dose modulation, iterative reconstruction, and/or weight based d osing when appropriate to reduce radiation dose to as low as reasonably achievable (ALARA). [facility]: Dose Right [facility]: CareDose [facility]: Dose Right [facility]: Teradose 4D [facility]: [employer] CONTRAST TYPE AND DOSE: contrast/concentration: Isovue 370.00 mg/ml; Total Contrast Delivered: 75.0 ml; Total Saline Delivered: 46.0 ml RENAL FUNCTION: Creatinine 0.6 RADIATION DOSE: Up-to-date CT equipment and radiation dose reduction techniques were employed. CTDIv ol: 18.2 mGy. DLP: 571 mGy-cm. . LIMITATIONS: None. FINDINGS: RIGHT NECK SUPERFICIAL SOFT TISSUES: Skin surface markers denote the region of interest. This lies in the lower right neck below the level of the angle of the jaw. There is mild regional s kin thickening, fascial thickening and subcutaneous fat stranding. No drainable fluid. The changes are superficial to the sternocleidomastoid muscle, posterior and inferior to the right submandibular gland. These adjacent structures look normal. No radiopaque foreign body. SKULL BASE: Intact. MAJOR SALIVARY GLANDS: No solid or cystic masses. No inflammatory changes. LYMPHADENOPATHY: Fairly symmetric bilateral largely shotty lymphadenopathy. No focally abnormal lymp h nodes. MUCOSAL MASSES OR ASYMMETRY: No mucosal masses or asymmetry. LARYNX/CORDS: No abnormal findings. VASCULAR STRUCTURES: No venous clot detected. Tortuous internal carotids bilaterally, patent. Verte bral and basilar arteries are patent. Cerebral arteries look grossly patent. LUNG APICES: Clear. BONES: Intact. THYROID: Normal size. No masses. PARANASAL SINUSES: Clear. OTHER: No other significant finding. IMPRESSION: 1. Soft tissue findings as above, lower right neck. Presumably related to cellulitis/pa nniculitis. No drainable abscess or foreign body detected. The deeper structures look normal. TECHNICAL DOCUMENTATION: JOB ID: [id number] Quality ID # [id number]: Final reports with documentation of one or more dose reduction techniques (e.g., Au tomated exposure control, adjustment of the mA and/or kV according to patient size, use of iterative reconstruction technique) 2010 [employer]- All Rights Reserved
[2017-08-03] MEDS ORDERED: CLINDAMYCIN 600 MG/D5W RTU 600 MG/50 ML RTUPB IV ONE (17:53)
[2017-08-03] MEDS ORDERED: CLINDAMYCIN HCL 150 MG CAPSULE PO ONE (18:05)
--- NOTE | 2017-08-03 18:26 | ER Document Report ---
ED Neck/Back Problem - General Chief Complaint: Neck Problem Stated Complaint: BUMP ON NECK Time Seen by Provider: 08/03/17 14:59 Notes: The patient is a 37-year-old female, past medical history diabetes, presents with 2 days of redness and swelling of her right neck. She does not remember an injury or scratch. She says that she takes her Lantus as prescribed. She denies difficulty swallowing, neck stiffness, chest pain, shortness of breath, fevers, ear pain or intraoral pain. TRAVEL OUTSIDE OF THE [place] IN LAST 30 DAYS: No - Related Data Allergies/Adverse Reactions: Penicillins Allergy (Verified 08/03/17 13:46) Home Medications: Current Home Medications Insulin Aspart [Novolog Insulin 100 Unit/1 ml 10 ml] 20 unit SUBCUT ASDIR PRN [History] Past Medical History - General Information source: Patient - Social History Smoking Status: Former Smoker Frequency of alcohol use: None Drug Abuse: None Family History: Arthritis, CVA, DM, Hypertension, Malignancy Patient has suicidal ideation: No Patient has homicidal ideation: No Endocrine Medical History: Reports: Hx Diabetes Mellitus Type 2 Renal/ Medical History: Reports: Hx Kidney Stones. Denies: Hx Peritoneal Dialysis GI Medical History: Reports: Hx Ulcer, Hx Colonoscopy, Hx Endoscopy Psychiatric Medical History: Reports: Hx Depression Past Surgical History: Reports: Hx Section, Hx Cholecystectomy, Hx Kidney (Renal Surgery) - lazer for stones - Immunizations Immunizations up to date: Yes Hx Diphtheria, Pertussis, Tetanus Vaccination: Yes Review of Systems - Review of Systems Notes: REVIEW OF SYSTEMS: CONSTITUTIONAL: -fevers, -chills EENT: -eye pain, -difficulty swallowing, -nasal congestion CARDIOVASCULAR:-chest pain, -syncope. RESPIRATORY: -cough, -SOB GASTROINTESTINAL: -abdominal pain, - nausea, -vomiting, -diarrhea GENITOURINARY: -dysuria, -hematuria MUSCULOSKELETAL: -back pain, -neck pain SKIN: +right neck rash HEMATOLOGIC: -easy bruising or bleeding. LYMPHATIC: -swollen, enlarged glands. NEUROLOGICAL: -altered mental status or loss of consciousness, -headache, - neurologic symptoms PSYCHIATRIC: -anxiety, -depression. ALL OTHER SYSTEMS REVIEWED AND NEGATIVE. Physical Exam - Vital signs Vitals: Temp Pulse Resp BP Pulse Ox 98.7 F 86 16 121/79 100 08/03/17 13:48 11/13/17 13:48 08/03/17 13:48 08/03/17 13:48 08/03/17 13:48 - Notes Notes: PHYSICAL EXAMINATION: GENERAL: Well-appearing, well-nourished and in no acute distress. HEAD: Atraumatic, normocephalic. EYES: Pupils equal round and reactive to light, extraocular movements intact, sclera anicteric, conjunctiva are normal. ENT: nares patent, oropharynx clear without exudates. Moist mucous membranes. NECK: Mild erythema without fluctuance over right lateral neck, multiple tender lymph nodes. LUNGS: Breath sounds clear to auscultation bilaterally and equal. No wheezes rales or rhonchi. HEART: Regular rate and rhythm without murmurs ABDOMEN: Soft, nontender, normoactive bowel sounds. No guarding, no rebound. No masses appreciated. EXTREMITIES: Normal range of motion, no pitting or edema. No cyanosis. NEUROLOGICAL: Cranial nerves grossly intact. Normal speech, normal gait. Normal sensory and motor exams. PSYCH: Normal mood, normal affect. Course - Re-evaluation Re-evalutation: Patient appears well. She has evidence of superficial cellulitis on CT soft tissue, but no evidence of abscess or infection of the deep tissues. Clinically , she does not have Gilbert's angina. Patient has a blood sugar of 330 without an anion gap, but she said that she just ate prior to the blood draw. Instructed her to follow-up with her primary care physician to see if she needs any adjustments to her insulin. Will begin patient on clindamycin with very strict return precautions about worsening cellulitis or abscess formation. She understands. She will follow-up with her primary care physician this week. - Vital Signs Vital signs: Temp Pulse Resp BP Pulse Ox 98.7 F 86 16 121/79 100 08/03/17 13:48 08/03/17 13:48 08/03/17 13:48 08/03/17 13:48 08/03/17 13:48 - Laboratory Result Diagrams: 08/03/17 15:20 08/03/17 15:20 Laboratory results interpreted by me: 08/03/17 08/03/17 15:20 15:20 WBC 12.6 H Hct 35.6 L MCV 78 L MCH 26.5 L RDW 14.4 H Absolute Neutrophils 9.0 H Glucose 330 H - Diagnostic Test Radiology reviewed: Image reviewed, Reports reviewed Radiology results interpreted by me: CT soft tissue neck: 1. Soft tissue findings as above, lower right neck. Presumably related to cellulitis/panniculitis. No drainable abscess or foreign body detected. The deeper structures look normal. Discharge - Discharge Clinical Impression: Hyperglycemia Cellulitis Qualifiers: Site of cellulitis: neck Qualified Code(s): L03.221 - Cellulitis of neck Condition: Stable Disposition: HOME, SELF-CARE Additional Instructions: Return to the ER if you notice worsening spread of the rash or you have any difficulty breathing. Speak to your primary care physician about adjusting your insulin due to your hyperglycemia. CELLULITIS: You have an infection of your skin and underlying soft tissues called cellulitis. This is due to bacteria, which can enter through any break in the skin, or even through an irritated hair follicle. Untreated, cellulitis will usually worsen. Antibiotics are required. Usually, warm packs or warm soaks, and elevation of the infected area are recommended. You should start getting better within 24 to 36 hours. Most infections respond quickly to the right medication. Follow-up care is important, however, to check for abscess (boil) formation, unsuspected foreign body, or resistant infection. If you develop fever, chills, or if the area of infection is becoming rapidly more swollen or painful, call the doctor at once. ANTIBIOTIC THERAPY: You have been given an antibiotic prescription. It's important that you take all the medication, unless instructed otherwise by your physician. Failure to complete the entire course can result in relapse of your condition. Common side effects of antibiotics include nausea, intestinal cramping, or diarrhea. Women may develop vaginal yeast infections, and babies can get yeast (thrush) in the mouth following the use of antibiotics. Contact your physician if you develop significant side effects from this medication. Allergy to this antibiotic can result in hives, wheezing, faintness, or itching. If symptoms of allergy occur, stop the medication and call the doctor. CLINDAMYCIN: You have been given a prescription for the antibiotic clindamycin. It is often prescribed for infections in the mouth, such as dental infections or abscesses, and for skin infections due to MRSA. It's important that you take all the medication, unless instructed otherwise by your physician. Failure to complete the entire course can result in relapse of your condition. Common side effects of antibiotics include nausea, intestinal cramping, or diarrhea. Women may develop vaginal yeast infections, and babies can get yeast (thrush) in the mouth following the use of antibiotics. Contact your physician if you develop significant side effects from this medication. Allergy to this antibiotic can result in hives, wheezing, faintness, or itching. If symptoms of allergy occur, stop the medication and call the doctor. ORAL NARCOTIC MEDICATION: You have been given a prescription for pain control. This medication is a narcotic. It's best taken with food, as nausea can result if taken on an empty stomach. Don't operate machinery or drive within six hours of taking this medication. Do not combine this medicine with alcohol, or with any medication which can cause sedation (such as cold tablets or sleeping pills) unless you get permission from the physician. Narcotics tend to cause constipation. If possible, drink plenty of fluids and eat a diet high in fiber and fruits. Please be aware that prescription narcotics also have the potential for abuse. People become addicted to these medications because of the general sense of wellbeing that they induce. This feeling along with a significant reduction in tension, anxiety, and aggression provides a stimulating seductive quality to these drugs. Once your pain is under control, we encourage you to discard your unused narcotics. FOLLOW-UP CARE: If you have been referred to a physician for follow-up care, call the physician s office for an appointment as you were instructed or within the next two days. If you experience worsening or a significant change in your symptoms, notify the physician immediately or return to the Emergency Department at any time for re-evaluation. Prescriptions: Clindamycin HCl 300 mg PO Q8H 10 Days capsule Hydrocodone/Acetaminophen [[place] 5-325 mg Tablet] 1 tab PO Q6H PRN #10 tablet PRN Reason: Referrals: RADHA LEGER PA-C [Primary Care Provider] - Follow up as needed
[2017-08-03 18:47] VITALS: BP 136/83
== END 2017-08-03 18:47 | disposition home or self-care (01) ==
LOC: ER 13:41
DX: L03.221 Cellulitis of neck (principal); E11.65 Type 2 diabetes mellitus with hyperglycemia; Z79.4 Long term (current) use of insulin; Z88.0 Allergy status to penicillin
CPT/HCPCS: 99284; 96361; 96374; 36415; 85025; 80053; 70491; J3490; J1885; J7030

== ENCOUNTER 2017-11-17 11:33 | Emergency (ER) | payer OTHER, MEDICAID ==
[2017-11-17 11:51] VITALS: BP 134/83
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
[2017-11-17] MEDS ORDERED: ACETAMINOPHEN 325 MG TABLET PO ONE (12:42)
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
[2017-11-17 13:51] LABS: ALANINE AMINOTRANSFERASE 18 U/L (9-52); ALBUMIN 4.3 g/dL (3.5-5.0); ALKALINE PHOSPHATASE 70 U/L (38-126); ANION GAP 13 (5-19); ASPARTATE AMINO TRANSFERASE 14 U/L (14-36); BILIRUBIN,DIRECT 0.2 mg/dL (0.0-0.4); BILIRUBIN,TOTAL 0.3 mg/dL (0.2-1.3); BLOOD UREA NITROGEN 20 mg/dL (7-20); CALCIUM 10.2 mg/dL (8.4-10.2); CARBON DIOXIDE 29 mmol/L (22-30); CHLORIDE 97 mmol/L (98-107); POTASSIUM 5.1 mmol/L (3.6-5.0); SODIUM 139.3 mmol/L (137-145); TOTAL PROTEIN 7.1 g/dL (6.3-8.2)
[2017-11-17] MEDS ORDERED: OXYCODONE HCL IR 5 MG TABLET PO ONE (13:54)
[2017-11-17 13:59] LABS: GLUCOSE 485 mg/dL (75-110)
[2017-11-17] MEDS ORDERED: IBUPROFEN 800 MG TABLET PO ONE (14:11)
== END 2017-11-17 14:50 | disposition home or self-care (01) ==
LOC: ER 11:33
DX: S40.021A Contusion of right upper arm, initial encounter (principal); M54.2 Cervicalgia; V49.50XA Passenger injured in collision with unspecified motor vehicles in traffic accident, initial encounter; R20.2 Paresthesia of skin; E11.65 Type 2 diabetes mellitus with hyperglycemia; Z79.4 Long term (current) use of insulin
CPT/HCPCS: 99285; 36415; 84703; 80053; 73080; 73110; 72125; L3908

== ENCOUNTER 2017-11-25 18:09 | Emergency (ER) | payer OTHER, MEDICAID ==
[2017-11-25 20:27] LABS: ABSOLUTE BASOPHILS # (AUTO) 0.1 10^3/uL (0.0-0.2); ABSOLUTE EOSINOPHILS # (AUTO) 0.2 10^3/uL (0.0-0.6); ABSOLUTE LYMPHOCYTES (AUTO) 3.3 10^3/uL (0.5-4.7); ABSOLUTE MONOCYTES (AUTO) 0.7 10^3/uL (0.1-1.4); ABSOLUTE NEUT (AUTO) 6.8 10^3/uL (1.7-8.2); BASOPHILS % (AUTO) 0.8 % (0-2); EOSINOPHILS % (AUTO) 1.7 % (0-6); HEMATOCRIT 34.5 % (36.0-47.0); HEMOGLOBIN 11.4 g/dL (12.0-15.5); LYMPHOCYTES % (AUTO) 29.7 % (13-45); MEAN CORPUSCULAR HGB CONC 32.9 g/dL (32.0-36.0); MEAN CORPUSCULAR VOLUME 76 fl (80-97); MONOCYTES % (AUTO) 6.4 % (3-13); PLATELET COUNT 217 10^3/uL (150-450); RED BLOOD COUNT 4.54 10^6/uL (3.72-5.28); RED CELL DISTRIBUTION WIDTH 15.4 % (11.5-14.0); SEGMENTED NEUTROPHILS % (AUTO) 61.4 % (42-78); TOTAL CELLS COUNTED % (AUTO) 100 %; WHITE BLOOD COUNT 11.1 10^3/uL (4.0-10.5)
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
[2017-11-25 20:49] LABS: ALANINE AMINOTRANSFERASE 22 U/L (9-52); ALBUMIN 3.8 g/dL (3.5-5.0); ALKALINE PHOSPHATASE 62 U/L (38-126); ANION GAP 10 (5-19); ASPARTATE AMINO TRANSFERASE 14 U/L (14-36); BILIRUBIN,DIRECT 0.1 mg/dL (0.0-0.4); BILIRUBIN,TOTAL 0.4 mg/dL (0.2-1.3); BLOOD UREA NITROGEN 14 mg/dL (7-20); CALCIUM 9.7 mg/dL (8.4-10.2); CARBON DIOXIDE 28 mmol/L (22-30); CHLORIDE 98 mmol/L (98-107); CREATINE KINASE 27 U/L (30-135); GLUCOSE 342 mg/dL (75-110); POTASSIUM 4.4 mmol/L (3.6-5.0); SODIUM 135.9 mmol/L (137-145); TOTAL PROTEIN 6.5 g/dL (6.3-8.2)
[2017-11-25 21:02] LABS: CREATINE KINASE MB < 0.22 ng/mL (<4.55); TROPONIN I < 0.012 ng/mL
[2017-11-25] MEDS ORDERED: LIDOCAINE 5% (700 MG) TRANSDERMAL ADH..PATCH TP ONE (21:12)
[2017-11-25] MEDS ORDERED: KETOROLAC TROMETHAMINE INJ/PF 30 MG/1 ML SDV IV ONE (21:23)
--- NOTE | 2017-11-25 21:30 | RADIOLOGY REPORT (SQ) ---
EXAM DESCRIPTION: CHEST SINGLE VIEW COMPLETED DATE/TIME: 11/25/2017 9:20 pm REASON FOR STUDY: chest pain COMPARISON: 02/28/2015 EXAM PARAMETERS: NUMBER OF VIEWS: One view. TECHNIQUE: Single frontal radiographic view of the chest acquired. RADIATION DOSE: NA LIMITATIONS: None. FINDINGS: LUNGS AND PLEURA: Relatively low lung volumes. No infiltrate or effusion. No mass. MEDIASTINUM AND HILAR STRUCTURES: No masses. Contour normal. HEART AND VASCULAR STRUCTURES: Heart normal in size. Normal vasculature. BONES: No acute findings. HARDWARE: None in the chest. OTHER: No other significant finding. IMPRESSION: NO ACUTE RADIOGRAPHIC FINDING IN THE CHEST. TECHNICAL DOCUMENTATION: JOB ID: [id number] [employer]- All Rights Reserved Reading location - IP/workstation name: [email or web address]
[2017-11-25] MEDS ORDERED: NORMAL SALINE 1000 ML 1,000 ML IV ONE (21:47)
[2017-11-25] MEDS ORDERED: INSULIN REG, HUMAN 100 UNIT/ML 3 ML VIAL (PYX) SUBCUT ONE ×2 (21:48→23:32)
[2017-11-25 22:03] VITALS: BP 124/72
--- NOTE | 2017-11-25 22:10 | EKG REPORT ---
SEVERITY:- BORDERLINE ECG - SINUS RHYTHM INFERIOR Q WAVES, PROBABLY NORMAL VARIATION BORDERLINE T ABNORMALITIES, ANT-LAT LEADS : Confirmed by: Susan Vance 25-Nov-2017 22:10:05
== END 2017-11-25 23:50 | disposition home or self-care (01) ==
LOC: ER 18:09
DX: R07.89 Other chest pain (principal); E11.65 Type 2 diabetes mellitus with hyperglycemia; M79.1 Myalgia; M25.519 Pain in unspecified shoulder; Z79.4 Long term (current) use of insulin
CPT/HCPCS: 93005; 99284; 96374; 36415; 82553; 82962; 82550; 85025; 80053; 84484; 71045; 93010; J1885; J1815; J7030

== ENCOUNTER 2018-04-11 00:24 | Emergency (ER) | payer MEDICAID, OTHER ==
[2018-04-11 01:04] VITALS: BP 106/63
[2018-04-11] MEDS ORDERED: MAG HYDROX/AL HYDROX/SIMETH SUSP 30 ML UDCUP PO ONE (01:45)
[2018-04-11] MEDS ORDERED: METOCLOPRAMIDE HCL ORAL SOLN 10 MG/10 ML UDCUP PO ONE (01:45)
[2018-04-11] MEDS ORDERED: LIDOCAINE 2% VISCOUS SOLN 20 ML UDCUP PO ONE (01:45)
[2018-04-11 02:09] LABS: APPEARANCE,URINE SLIGHTLY-CLOUDY; BILIRUBIN,URINE NEGATIVE (NEGATIVE); COLOR,URINE YELLOW; GLUCOSE, URINE >=500 mg/dL (NEGATIVE); KETONES,URINE NEGATIVE (NEGATIVE); LEUKOCYTE ESTERASE,URINE LARGE (NEGATIVE); NITRITE,URINE NEGATIVE (NEGATIVE); PROTEIN,URINE NEGATIVE (NEGATIVE); URINE SPECIFIC GRAVITY 1.018
[2018-04-11 02:29] LABS: ABSOLUTE BASOPHILS # (AUTO) 0.1 10^3/uL (0.0-0.2); ABSOLUTE EOSINOPHILS # (AUTO) 0.3 10^3/uL (0.0-0.6); ABSOLUTE LYMPHOCYTES (AUTO) 2.6 10^3/uL (0.5-4.7); ABSOLUTE MONOCYTES (AUTO) 0.7 10^3/uL (0.1-1.4); ABSOLUTE NEUT (AUTO) 5.8 10^3/uL (1.7-8.2); BASOPHILS % (AUTO) 0.9 % (0-2); EOSINOPHILS % (AUTO) 2.7 % (0-6); HEMATOCRIT 33.4 % (36.0-47.0); LYMPHOCYTES % (AUTO) 27.6 % (13-45); MEAN CORPUSCULAR HEMOGLOBIN 25.6 pg (27.0-33.4); MEAN CORPUSCULAR VOLUME 78 fl (80-97); MONOCYTES % (AUTO) 7.1 % (3-13); PLATELET COUNT 212 10^3/uL (150-450); RED BLOOD COUNT 4.31 10^6/uL (3.72-5.28); RED CELL DISTRIBUTION WIDTH 15.5 % (11.5-14.0); SEGMENTED NEUTROPHILS % (AUTO) 61.7 % (42-78); TOTAL CELLS COUNTED % (AUTO) 100 %; WHITE BLOOD COUNT 9.3 10^3/uL (4.0-10.5)
[2018-04-11 02:49] LABS: ALANINE AMINOTRANSFERASE 20 U/L (9-52); ALBUMIN 3.4 g/dL (3.5-5.0); ALKALINE PHOSPHATASE 58 U/L (38-126); ANION GAP 9 (5-19); ASPARTATE AMINO TRANSFERASE 16 U/L (14-36); BILIRUBIN,DIRECT 0.3 mg/dL (0.0-0.4); BILIRUBIN,TOTAL 0.3 mg/dL (0.2-1.3); BLOOD UREA NITROGEN 16 mg/dL (7-20); CALCIUM 9.5 mg/dL (8.4-10.2); CARBON DIOXIDE 27 mmol/L (22-30); CHLORIDE 103 mmol/L (98-107); GLUCOSE 328 mg/dL (75-110); LIPASE 203.2 U/L (23-300); POTASSIUM 4.8 mmol/L (3.6-5.0); SODIUM 139.2 mmol/L (137-145); TOTAL PROTEIN 6.6 g/dL (6.3-8.2)
[2018-04-11] MEDS ORDERED: CEPHALEXIN 500 MG CAPSULE PO ONE (03:25)
--- NOTE | 2018-04-11 03:32 | ER Document Report ---
ED General - General Chief Complaint: Abdominal Pain Stated Complaint: ABDOMINAL PAIN Time Seen by Provider: 04/11/18 01:45 Notes: Patient is a 37 year old female with a past medical history of insulin- dependent diabetes, morbid obesity, who presents with complaints of several days of lower abdominal pain. The patient reports that each time she eats she develops abdominal cramping and then has several diarrheal bowel movements. Although the patient denies a history of similar symptoms in the past review of previous medical visits to the emergency department for abdominal pain reveal at least 2 prior visits for the same. She does note that she had some blood in her last bowel movement. Nothing improves or worsens her symptoms. She denies any fever or constitutional symptoms. No vomiting. She has not seen her general doctor regarding today's concerns. TRAVEL OUTSIDE OF THE [place] IN LAST 30 DAYS: No - Related Data Allergies/Adverse Reactions: onion Allergy (Verified 04/11/18 00:29) Penicillins Allergy (Verified 11/25/17 18:20) Past Medical History - General Information source: Patient - Social History Smoking Status: Never Smoker Frequency of alcohol use: None Drug Abuse: None Lives with: Family Family History: Arthritis, CVA, DM, Hypertension, Malignancy Endocrine Medical History: Reports: Hx Diabetes Mellitus Type 2 Renal/ Medical History: Reports: Hx Kidney Stones. Denies: Hx Peritoneal Dialysis GI Medical History: Reports: Hx Ulcer, Hx Colonoscopy, Hx Endoscopy Psychiatric Medical History: Reports: Hx Depression Past Surgical History: Reports: Hx Section, Hx Cholecystectomy, Hx Kidney (Renal Surgery) - lazer for stones - Immunizations Immunizations up to date: Yes Hx Diphtheria, Pertussis, Tetanus Vaccination: Yes Review of Systems - Review of Systems Notes: Constitutional: Negative for fever. HENT: Negative for sore throat. Eyes: Negative for visual changes. Cardiovascular: Negative for chest pain. Respiratory: Negative for shortness of breath. Gastrointestinal: Positive for abdominal pain and diarrhea Genitourinary: Negative for dysuria. Musculoskeletal: Negative for back pain. Skin: Negative for rash. Neurological: Negative for headaches, weakness or numbness. 10 point ROS negative except as marked above and in HPI. Physical Exam - Vital signs Vitals: Temp Pulse Resp BP Pulse Ox 98.7 F 93 20 106/63 97 04/11/18 01:01 04/11/18 01:01 04/11/18 01:01 04/11/18 01:01 04/11/18 01:01 Interpretation: Normal Notes: PHYSICAL EXAMINATION: GENERAL: Sleeping soundly when I walk into the room. Requires several times to wake up. Well-appearing, well-nourished and in no acute distress. HEAD: Atraumatic, normocephalic. EYES: Pupils equal round and reactive to light, extraocular movements intact, sclera anicteric, conjunctiva are normal. ENT: nares patent, oropharynx clear without exudates. Moist mucous membranes. NECK: Normal range of motion, supple without lymphadenopathy LUNGS: Breath sounds clear to auscultation bilaterally and equal. No wheezes rales or rhonchi. HEART: Regular rate and rhythm without murmurs ABDOMEN: Soft, no localized tenderness on palpation, normoactive bowel sounds. No guarding, no rebound. No masses appreciated. EXTREMITIES: Normal range of motion, no pitting or edema. No cyanosis. NEUROLOGICAL: No focal neurological deficits. Moves all extremities spontaneously and on command. PSYCH: Normal mood, normal affect. SKIN: Warm, Dry, normal turgor, no rashes or lesions noted. Course - Re-evaluation Re-evalutation: 04/11/18 03:34 Patient presents with complaints of several days of lower abdominal as well as diarrhea when she has bowel movements. Went into the room the patient is sleeping soundly. I have to shake her to wake her up. After waking she does not again began to complain of lower abdominal discomfort. Abdominal exam she has no focal areas of tenderness, rebound or guarding. She does deny any significant dysuria. She states that after having several bouts of diarrhea today she did have a small amount of blood in her stool. Her hemoglobin is noted to be effectively unchanged from November of this year at which time it was 11.4 and today is 11. Labs are otherwise unremarkable without any evidence of transaminitis, elevated lipase, or . Urinalysis is consistent with a urinary tract infection could account for some of her lower abdominal discomfort that would not explain her complaints of diarrhea which appear to be more likely related to a possible viral etiology. Very low clinical suspicion for acute appendicitis, diverticulitis, perforated bowel, or any alternative life-threatening pathology based on her normal vitals, reassuring laboratories and reassuring history and exam. At this time will discharge with return precautions and follow-up recommendations. Verbal discharge instructions given a the bedside and opportunity for questions given. Medication warnings reviewed. Patient is in agreement with this plan and has verbalized understanding of return precautions and the need for primary care follow-up in the next 24-72 hours. 04/11/18 04:22 Patient apparently became very agitated at time of discharge per the nurse. Apparently she was very displeased with her care although when I was in the room the patient did not discuss any concerns regarding her evaluation, management or discharge. I did offer the patient and the mother at the bedside and opportunity to ask any additional questions or bring up any additional concerns and they declined stating that they had no additional questions. At no point did she advocate stating that she felt like there was an inaccurate or missing piece of her diagnosis. She did leave prior to me having an opportunity to speak with her again. - Vital Signs Vital signs: Temp Pulse Resp BP Pulse Ox 98.7 F 93 20 106/63 97 04/11/18 01:01 04/11/18 01:01 04/11/18 01:01 04/11/18 01:01 04/11/18 01:01 - Laboratory Result Diagrams: 04/11/18 02:19 04/11/18 02:19 Laboratory results interpreted by me: 04/11/18 04/11/18 04/11/18 01:35 02:19 02:19 Hgb 11.0 L Hct 33.4 L MCV 78 L MCH 25.6 L RDW 15.5 H Glucose 328 H Albumin 3.4 L Urine Glucose (UA) >=500 H Urine Urobilinogen 4.0 H Ur Leukocyte Esterase LARGE H Discharge - Discharge Clinical Impression: Lower abdominal pain UTI (urinary tract infection) Qualifiers: Urinary tract infection type: acute cystitis Hematuria presence: without hematuria Qualified Code(s): N30.00 - Acute cystitis without hematuria Uncontrolled diabetes mellitus Qualifiers: Diabetes mellitus type: type 2 Diabetes mellitus buttermaker insulin use: unspecified buttermaker insulin use status Diabetes mellitus complication status: with unspecified complications Qualified Code(s): E11.8 - Type 2 diabetes mellitus with unspecified complications; E11.65 - Type 2 diabetes mellitus with hyperglycemia; E11.65 - Type 2 diabetes mellitus with hyperglycemia; E11.65 - Type 2 diabetes mellitus with hyperglycemia; E11.65 - Type 2 diabetes mellitus with hyperglycemia Diarrhea Qualifiers: Diarrhea type: unspecified type Qualified Code(s): R19.7 - Diarrhea, unspecified Condition: Good Disposition: HOME, SELF-CARE Additional Instructions: Your urine shows findings consistent with a urinary tract infection. Please take all the antibiotics as directed even if your symptoms have improved. Please follow-up with your primary care physician as needed. Return to emergency room if you develop fever >101F, persistent vomiting, become lethargic , have severe pain in your sides, or any other symptoms that are concerning to you. The remainder of your labs are otherwise reassuring today. You are not . Prescriptions: Cephalexin Monohydrate [Keflex 500 mg Capsule] 500 mg PO Q6H 5 Days capsule Referrals: ADE FUNG, [Primary Care Provider] - Follow up as needed
== END 2018-04-11 03:40 | disposition home or self-care (01) ==
LOC: ER 00:24
DX: N30.00 Acute cystitis without hematuria (principal); E11.65 Type 2 diabetes mellitus with hyperglycemia; Z79.4 Long term (current) use of insulin; R19.7 Diarrhea, unspecified; K92.1 Melena; Z88.0 Allergy status to penicillin; Z91.018 Allergy to other foods; Z87.442 Personal history of urinary calculi; Z90.49 Acquired absence of other specified parts of digestive tract
CPT/HCPCS: 99284; 36415; 87086; 84702; 83690; 85025; 81025; 87088; 80053; 81001; 87186; J3490 ×3

== ENCOUNTER 2018-12-19 16:38 | Inpatient (IN) | payer MEDICAID ==
[2018-12-19] MEDS ORDERED: IBUPROFEN 800 MG TABLET PO ONE (16:53)
--- NOTE | 2018-12-19 16:55 | ER Document Report ---
ED Medical Screen (RME) - General Chief Complaint: Fever Stated Complaint: FEVER Time Seen by Provider: 12/19/18 16:52 Primary Care Provider: ADE FUNG DO [Primary Care Provider] - Follow up as needed Mode of Arrival: Ambulatory Information source: Patient TRAVEL OUTSIDE OF THE [place] IN LAST 30 DAYS: No - HPI Patient complains to provider of: fever Onset: This morning - pt with c/o fever and chills today with cough and bodyaches - Related Data Allergies/Adverse Reactions: onion Allergy (Verified 12/19/18 16:40) Penicillins Allergy (Verified 12/19/18 16:40) Past Medical History - Social History Frequency of alcohol use: None Endocrine Medical History: Reports: Hx Diabetes Mellitus Type 2 Renal/ Medical History: Reports: Hx Kidney Stones. Denies: Hx Peritoneal Dialysis GI Medical History: Reports: Hx Ulcer, Hx Colonoscopy, Hx Endoscopy Psychiatric Medical History: Reports: Hx Depression Past Surgical History: Reports: Hx Section, Hx Cholecystectomy, Hx Kidney (Renal Surgery) - lazer for stones - Immunizations Immunizations up to date: Yes Hx Diphtheria, Pertussis, Tetanus Vaccination: Yes Physical Exam - Vital signs Vitals: Temp Pulse Resp BP Pulse Ox 102.0 F H 124 H 16 151/84 H 89 L 12/19/18 16:42 12/19/18 16:42 12/19/18 16:42 12/19/18 16:42 12/19/18 16:42 Course - Vital Signs Vital signs: Temp Pulse Resp BP Pulse Ox 102.0 F H 124 H 16 151/84 H 89 L 12/19/18 16:42 12/19/18 16:42 12/19/18 16:42 12/19/18 16:42 12/19/18 16:42 Doctor's Discharge - Discharge Referrals: ADE FUNG DO [Primary Care Provider] - Follow up as needed
[2018-12-19 17:34] LABS: ABSOLUTE BASOPHILS # (AUTO) 0.1 10^3/uL (0.0-0.2); ABSOLUTE EOSINOPHILS # (AUTO) 0.1 10^3/uL (0.0-0.6); ABSOLUTE LYMPHOCYTES (AUTO) 0.7 10^3/uL (0.5-4.7); ABSOLUTE MONOCYTES (AUTO) 0.6 10^3/uL (0.1-1.4); ABSOLUTE NEUT (AUTO) 4.6 10^3/uL (1.7-8.2); EOSINOPHILS % (AUTO) 1.7 % (0-6); HEMATOCRIT 34.5 % (36.0-47.0); HEMOGLOBIN 11.3 g/dL (12.0-15.5); LYMPHOCYTES % (AUTO) 11.3 % (13-45); MEAN CORPUSCULAR HEMOGLOBIN 25.4 pg (27.0-33.4); MEAN CORPUSCULAR HGB CONC 32.7 g/dL (32.0-36.0); MEAN CORPUSCULAR VOLUME 78 fl (80-97); MONOCYTES % (AUTO) 10.5 % (3-13); PLATELET COUNT 207 10^3/uL (150-450); RED BLOOD COUNT 4.45 10^6/uL (3.72-5.28); RED CELL DISTRIBUTION WIDTH 14.9 % (11.5-14.0); SEGMENTED NEUTROPHILS % (AUTO) 75.5 % (42-78); TOTAL CELLS COUNTED % (AUTO) 100 %
[2018-12-19 17:46] LABS: APPEARANCE,URINE SLIGHTLY-CLOUDY; BILIRUBIN,URINE NEGATIVE (NEGATIVE); COLOR,URINE YELLOW; GLUCOSE, URINE >=500 mg/dL (NEGATIVE); KETONES,URINE NEGATIVE (NEGATIVE); LEUKOCYTE ESTERASE,URINE SMALL (NEGATIVE); NITRITE,URINE NEGATIVE (NEGATIVE); PROTEIN,URINE 30 mg/dL (NEGATIVE); URINE SPECIFIC GRAVITY 1.026
[2018-12-19 17:48] LABS: ALANINE AMINOTRANSFERASE 22 U/L (9-52); ALBUMIN 3.4 g/dL (3.5-5.0); ALKALINE PHOSPHATASE 95 U/L (38-126); ANION GAP 8 (5-19); ASPARTATE AMINO TRANSFERASE 13 U/L (14-36); BILIRUBIN,DIRECT 0.2 mg/dL (0.0-0.4); BILIRUBIN,TOTAL 0.3 mg/dL (0.2-1.3); BLOOD UREA NITROGEN 11 mg/dL (7-20); CALCIUM 9.6 mg/dL (8.4-10.2); CARBON DIOXIDE 31 mmol/L (22-30); CHLORIDE 98 mmol/L (98-107); GLUCOSE 345 mg/dL (75-110); POTASSIUM 4.6 mmol/L (3.6-5.0); SODIUM 136.6 mmol/L (137-145)
--- NOTE | 2018-12-19 17:51 | RADIOLOGY REPORT (SQ) ---
EXAM DESCRIPTION: CHEST 2 VIEWS COMPLETED DATE/TIME: 12/19/2018 5:39 pm REASON FOR STUDY: cough; fever COMPARISON: 02/28/2015. EXAM PARAMETERS: NUMBER OF VIEWS: two views TECHNIQUE: Digital Frontal and Lateral radiographic views of the chest acquired. RADIATION DOSE: NA LIMITATIONS: none FINDINGS: LUNGS AND PLEURA: No opacities, masses or pneumothorax. No pleural effusion. MEDIASTINUM AND HILAR STRUCTURES: No masses or contour abnormalities. HEART AND VASCULAR STRUCTURES: Heart normal size. No evidence for failure. BONES: No acute findings. HARDWARE: None in the chest. OTHER: No other significant finding. IMPRESSION: NO ACUTE RADIOGRAPHIC FINDING IN THE CHEST. TECHNICAL DOCUMENTATION: JOB ID: [id number] [employer]- All Rights Reserved Reading location - IP/workstation name: [email or web address]
[2018-12-19 18:06] LABS: A TYPE INFLUENZA AG NEGATIVE (NEGATIVE); B INFLUENZA AG NEGATIVE (NEGATIVE)
[2018-12-19] MEDS ORDERED: RINGERS SOLUTION,LACTATED 1,000 ML IV ONE (19:02)
[2018-12-19] MEDS ORDERED: LEVOFLOXACIN 750 MG/D5W RTU 750 MG/150 ML RTUPB IV ONE (19:03)
[2018-12-19] MEDS ORDERED: ACETAMINOPHEN 325 MG TABLET PO ONE (19:03)
[2018-12-19] MEDS ORDERED: INSULIN REG, HUMAN 100 UNIT/ML 3 ML VIAL (PYX) SUBCUT ONE (19:05)
--- NOTE | 2018-12-19 19:10 | ER Document Report ---
ED General - General Chief Complaint: Fever Stated Complaint: FEVER Time Seen by Provider: 12/19/18 16:52 Primary Care Provider: ADE FUNG DO [Primary Care Provider] - Follow up as needed Mode of Arrival: Ambulatory Notes: Patient is a 38-year-old female with past medical history of morbid obesity, insulin-dependent type 2 diabetes, presents complaining of 2 days of fever, cough, no sputum production, body aches and sore throat. Patient states that her symptoms started gradually, have been progressively worsening since onset. Patient states her symptoms are severe "I feel like I am dying". States that she received the influenza vaccine this year. Denies history of similar sym ptoms in the past. Has been treating her symptoms at home with Tylenol with some improvement. Nothing seems to necessarily worsen her symptoms. She is uncertain of whether or not she has had sick contacts. She has not seen her primary doctor regarding today's concerns. TRAVEL OUTSIDE OF THE [place] IN LAST 30 DAYS: No - Related Data Allergies/Adverse Reactions: onion Allergy (Verified 12/19/18 16:40) Penicillins Allergy (Verified 12/19/18 16:40) Past Medical History - General Information source: Patient - Social History Smoking Status: Never Smoker Frequency of alcohol use: None Drug Abuse: None Lives with: Spouse/Significant other Family History: Arthritis, CVA, DM, Hypertension, Malignancy Patient has suicidal ideation: No Patient has homicidal ideation: No Endocrine Medical History: Reports: Hx Diabetes Mellitus Type 2 Renal/ Medical History: Reports: Hx Kidney Stones. Denies: Hx Peritoneal Dialysis GI Medical History: Reports: Hx Ulcer, Hx Colonoscopy, Hx Endoscopy Psychiatric Medical History: Reports: Hx Depression Past Surgical History: Reports: Hx Section, Hx Cholecystectomy, Hx Kidney (Renal Surgery) - lazer for stones - Immunizations Immunizations up to date: Yes Hx Diphtheria, Pertussis, Tetanus Vaccination: Yes Review of Systems - Review of Systems Notes: Constitutional: Positive for fever. HENT: Positive for sore throat. Eyes: Negative for visual changes. Cardiovascular: Positive for chest pain. Respiratory: Positive for shortness of breath and cough Gastrointestinal: Negative for abdominal pain, positive for nausea Genitourinary: Negative for dysuria. Musculoskeletal: Negative for back pain. Skin: Negative for rash. Neurological: Negative for headaches, weakness or numbness. 10 point ROS negative except as marked above and in HPI. Physical Exam - Vital signs Vitals: Temp Pulse Resp BP Pulse Ox 102.0 F H 124 H 16 151/84 H 89 L 12/19/18 16:42 12/19/18 16:42 12/19/18 16:42 12/19/18 16:42 12/19/18 16:42 Interpretation: Tachycardic, Hypoxic, Febrile Notes: PHYSICAL EXAMINATION: GENERAL: Appears uncomfortable but in no overt distress HEAD: Atraumatic, normocephalic. EYES: Pupils equal round and reactive to light, extraocular movements intact, sclera anicteric, conjunctiva are normal. ENT: nares patent, oropharynx clear without exudates. Moderately dry mucous membranes. NECK: Normal range of motion, supple without lymphadenopathy LUNGS: Breath sounds clear to auscultation bilaterally and equal. No wheezes rales or rhonchi. HEART: Regular tachycardia without murmurs ABDOMEN: Soft, nontender, normoactive bowel sounds. No guarding, no rebound. No masses appreciated. EXTREMITIES: Normal range of motion, no pitting or edema. No cyanosis. NEUROLOGICAL: No focal neurological deficits. Moves all extremities spontaneously and on command. PSYCH: Highly anxious, histrionic SKIN: Warm, Dry, normal turgor, no rashes or lesions noted. Course - Re-evaluation Re-evalutation: 12/19/18 19:10 Patient presents with cough, nausea and fever at home consistent with a flulike illness although our flu test here is negative. Sensitivity for this years flu assay is apparently 91-92%. Clinical history and exam is not consistent with an acute bacterial meningitis, encephalitis,there is no evidence of a cellulitis on examination. Patient likewise denies any urinary symptoms but urinalysis is suspicious for a urinary tract infection. Chest x-ray is clear without any evidence of an acute pneumonia. However, an occult pneumonia would also be on the differential given absence of positive flu test and hypoxia. Patient does not have any focal abdominal tenderness to suggest an acute biliary pathology, acute appendicitis, acute mesenteric ischemia, bowel obstruction, bowel, or any other life-threatening acute intra-abdominal pathology as the etiology of the fever and additional symptoms today. Labs are otherwise unremarkable with the exception of hyperglycemia. The patient likely has either influenza or bacterial pneumonia. The patient is hypoxic, 89% on room air and unfortunately is currently oxygen dependent. This does prohibit discharge home. I have started her on IV levofloxacin for coverage of a possible urinary tract infection as well as possible occult pneumonia, IV fluids, antipyretics, insulin. Will discuss with the hospitalist for admission. 12/19/18 19:31 I have discussed this case with Dr. Denilson Marques who has accepted the patient for admission. - Vital Signs Vital signs: Temp Pulse Resp BP Pulse Ox 98.6 F 124 H 16 151/84 H 89 L 12/19/18 18:48 12/19/18 16:42 12/19/18 16:42 12/19/18 16:42 12/19/18 16:42 - Laboratory Result Diagrams: 12/19/18 07:07 12/19/18 17:07 Laboratory results interpreted by me: 12/19/18 12/19/18 12/19/18 07:07 17:07 17:07 Hgb 11.3 L Hct 34.5 L MCV 78 L MCH 25.4 L RDW 14.9 H Lymphocytes % 11.3 L Sodium 136.6 L Carbon Dioxide 31 H Glucose 345 H AST 13 L Albumin 3.4 L Urine Protein 30 H Urine Glucose (UA) >=500 H Urine Blood MODERATE H Urine Urobilinogen 2.0 H Ur Leukocyte Esterase SMALL H - Diagnostic Test Radiology reviewed: Image reviewed, Reports reviewed Radiology results interpreted by me: 12/19/18 19:12 Chest x-ray: No acute infiltrate or pneumothorax Discharge - Discharge Clinical Impression: Acute respiratory failure with hypoxia Pneumonia Qualifiers: Pneumonia type: due to unspecified organism Laterality: unspecified laterality Lung location: unspecified part of lung Qualified Code(s): J18.9 - Pneumonia, unspecified organism Condition: Fair Disposition: ADMITTED INPATIENT Admitting Provider: Hospitalist Unit Admitted: Telemetry Referrals: ADE FUNG DO [Primary Care Provider] - Follow up as needed
[2018-12-19] MEDS ORDERED: LACTULOSE SYRUP 20 GM/30 ML UDCUP PO ONE (19:31)
[2018-12-19] MEDS ORDERED: IPRATROPIUM/ALBUTEROL 0.5-2.5 MG/3 ML AMPUL NEB PRN (19:37)
[2018-12-19] MEDS ORDERED: GUAIFENESIN SYRP 200 MG/10 ML UDC PO PRN (19:37)
[2018-12-19 20:12] LABS: CREATINE KINASE MB < 0.22 ng/mL (<4.55); TROPONIN I < 0.012 ng/mL; URINE AMPHETAMINES SCREEN NEGATIVE; URINE BARBITURATES SCREEN NEGATIVE; URINE BENZODIAZEPINES SCREEN NEGATIVE; URINE COCAINE SCREEN NEGATIVE; URINE MARIJUANA (THC) SCREEN NEGATIVE; URINE METHADONE SCREEN NEGATIVE; URINE PHENCYCLIDINE SCREEN NEGATIVE
--- NOTE | 2018-12-19 20:12 | EKG REPORT ---
SEVERITY:- NORMAL ECG - SINUS RHYTHM : Confirmed by: Deanna Lindsey MD 19-Dec-2018 20:10:45
[2018-12-19] MEDS ORDERED: CHLORPHENIRAMINE MALEATE 4 MG TABLET PO ONE (21:45)
[2018-12-19] MEDS: TRAZODONE HCL 50 MG TABLET PO SCH (22:50)
[2018-12-19] MEDS: HEPARIN SOD (PORCINE) 5,000 UNIT/ML 1 ML SYRINGE SUBCUT SCH (22:51)
[2018-12-20] MEDS: IPRATROPIUM/ALBUTEROL 0.5-2.5 MG/3 ML AMPUL NEB SCH ×3 (00:07→16:13)
[2018-12-20] MEDS ORDERED: INSULIN REG, HUMAN 100 UNIT/ML 3 ML VIAL (PYX) IV ONE (01:15)
[2018-12-20] MEDS ORDERED: FLUTICASONE NASAL SPRAY 50 MCG/SPRY 120 SPRAY/16 GM ONE (01:25)
[2018-12-20] MEDS ORDERED: CHLORPHENIRAMINE MALEATE 4 MG TABLET ONE (01:25)
[2018-12-20] MEDS ORDERED: DEXTROSE 40% GEL 15 GM TUBE X 2 PO PRN (01:30)
[2018-12-20] MEDS ORDERED: GLUCAGON,HUMAN RECOMB 1 MG INJ IM PRN ×2 (01:30→06:30)
[2018-12-20] MEDS ORDERED: DEXTROSE 40% GEL 15 GM TUBE PO PRN ×2 (01:30→06:30)
[2018-12-20] MEDS ORDERED: DEXTROSE 50%-WATER SYRINGE 25 GM/50 ML DOSE IV PRN (01:30)
[2018-12-20] MEDS ORDERED: DEXTROSE 50%-WATER SYRINGE 12.5 GM/25 ML DOSE IV PRN (01:30)
[2018-12-20] MEDS: FLUTICASONE NASAL SPRAY 50 MCG/SPRY 120 SPRAY/16 GM NASL SCH ×3 (01:35→23:58)
[2018-12-20 01:47] LABS: CREATINE KINASE MB < 0.22 ng/mL (<4.55); TROPONIN I < 0.012 ng/mL
[2018-12-20] MEDS ORDERED: CHLORPHENIRAMINE MALEATE 4 MG TABLET PO SCH (03:00)
--- NOTE | 2018-12-20 05:35 | PDOC H&P ---
History of Present Illness Admission Date/PCP: 12/19/18 19:51 ADE FUNG DO Patient complains of: Shortness of breath History of Present Illness: PERLA GRULLON is a 38 year old female with a past medical history of morbid obesity and insulin dependent diabetes. She presents with 2 days of fever nonproductive cough and shortness of breath. She denies rhinorrhea, sore throat or acid reflux. She denies infectious contacts or recent antibiotic use. In the emergency room she is found to have retractions and use of accessory muscles with hypoxia of 89% on room air and rhonchi on exam. She received empiric antibiotics and referred to the hospitalist for observation. Patient denies chest pain, palpitations nausea or vomiting. She denies [id number] medication for symptoms. Past Medical History Medical History: None Endocrine Medical History: Reports: Diabetes Mellitus Type 2 Psychiatric Medical History: Denies: Depression Past Surgical History Past Surgical History: Reports: Section, Cholecystectomy Social History Information Source: Patient, Emergency Med Personnel Lives with: Spouse/Significant other Smoking Status: Never Smoker Frequency of Alcohol Use: None Hx Recreational Drug Use: Yes - 15 years ago Drugs: Other Hx Prescription Drug Abuse: No - Advance Directive Resuscitation Status: Full Code Family History Family History: Arthritis, CVA, DM, Hypertension, Malignancy Parental Family History Reviewed: Yes Children Family History Reviewed: Yes Sibling(s) Family History Reviewed.: Yes Medication/Allergy Home Medications: Clindamycin HCl 300 mg PO Q8H 10 Days capsule 08/03/17 Hydrocodone/Acetaminophen [Glidden 5-325 mg Tablet] 1 tab PO Q6H PRN #10 tablet 08/03/17 Insulin Aspart [Novolog Insulin 100 Unit/1 ml 10 ml] 20 unit SUBCUT ASDIR PRN 08/03/17 Tramadol HCl [Ultram] 50 mg PO Q4HP PRN #10 tablet 11/17/17 Naproxen 500 mg PO BID PRN #20 tablet 11/25/17 Cephalexin Monohydrate [Keflex 500 mg Capsule] 500 mg PO Q6H 5 Days capsule 04/11/18 Allergies/Adverse Reactions: onion Allergy (Verified 12/19/18 16:40) Penicillins Allergy (Verified 12/19/18 16:40) Review of Systems Constitutional: ABSENT: chills, fever(s), headache(s), weight gain, weight loss Eyes: ABSENT: visual disturbances Ears: ABSENT: hearing changes Cardiovascular: ABSENT: chest pain, dyspnea on exertion, edema, orthropnea, palpitations Respiratory: ABSENT: cough, hemoptysis Gastrointestinal: ABSENT: abdominal pain, constipation, diarrhea, hematemesis, hematochezia, nausea, vomiting Genitourinary: ABSENT: dysuria, hematuria Musculoskeletal: ABSENT: joint swelling Integumentary: ABSENT: rash, wounds Neurological: ABSENT: abnormal gait, abnormal speech, confusion, dizziness, focal weakness, syncope Psychiatric: ABSENT: anxiety, depression, homidical ideation, suicidal ideation Endocrine: ABSENT: cold intolerance, heat intolerance, polydipsia, polyuria Hematologic/Lymphatic: ABSENT: easy bleeding, easy bruising Physical Exam Vital Signs: Temp Pulse Resp BP Pulse Ox 97.9 F 79 17 124/64 96 12/20/18 03:39 12/20/18 03:39 12/20/18 03:39 12/20/18 03:39 12/20/18 03:39 Intake & Output 12/18/18 12/19/18 12/20/18 11:59 11:59 11:59 Intake Total 1150 Balance 1150 Weight 107.1 kg General appearance: PRESENT: cooperative, mild distress, morbidly obese. ABSENT: disheveled Head exam: PRESENT: atraumatic, normocephalic Eye exam: PRESENT: conjunctiva pink, EOMI, PERRLA. ABSENT: scleral icterus Ear exam: PRESENT: normal external ear exam Mouth exam: PRESENT: moist, tongue midline Neck exam: ABSENT: carotid bruit, JVD, lymphadenopathy, thyromegaly Respiratory exam: PRESENT: accessory muscle use, prolonged expiratory phas, retraction, rhonchi, symmetrical, tachypnea. ABSENT: rales, stridor, wheezes Cardiovascular exam: PRESENT: RRR. ABSENT: diastolic murmur, rubs, systolic murmur Pulses: PRESENT: normal dorsalis pedis pul Vascular exam: PRESENT: normal capillary refill GI/Abdominal exam: PRESENT: normal bowel sounds, soft. ABSENT: distended, guarding, mass, organolmegaly, rebound, tenderness Rectal exam: PRESENT: deferred Extremities exam: PRESENT: full ROM. ABSENT: calf tenderness, clubbing, pedal edema Neurological exam: PRESENT: alert, awake, oriented to person, oriented to place, oriented to time, oriented to situation, CN II-XII grossly intact. ABSENT: motor sensory deficit Psychiatric exam: PRESENT: appropriate affect, normal mood. ABSENT: homicidal ideation, suicidal ideation Skin exam: PRESENT: dry, intact, warm. ABSENT: cyanosis, rash Results Laboratory Results: 12/19/18 07:07 12/19/18 17:07 12/19/18 12/19/18 12/19/18 07:07 17:07 17:07 WBC 6.0 RBC 4.45 Hgb 11.3 L Hct 34.5 L MCV 78 L MCH 25.4 L MCHC 32.7 RDW 14.9 H Plt Count 207 Seg Neutrophils % 75.5 Lymphocytes % 11.3 L Monocytes % 10.5 Eosinophils % 1.7 Basophils % 1.0 Absolute Neutrophils 4.6 Absolute Lymphocytes 0.7 Absolute Monocytes 0.6 Absolute Eosinophils 0.1 Absolute Basophils 0.1 Sodium 136.6 L Potassium 4.6 Chloride 98 Carbon Dioxide 31 H Anion Gap 8 BUN 11 Creatinine 0.71 Est GFR ( Amer) > 60 Est GFR (Non-Af Amer) > 60 Glucose 345 H Calcium 9.6 Total Bilirubin 0.3 AST 13 L ALT 22 Alkaline Phosphatase 95 Total Protein 7.0 Albumin 3.4 L TSH Urine Color YELLOW Urine Appearance SLIGHTLY-CLOUDY Urine pH 5.0 Ur Specific [place] 1.026 Urine Protein 30 H Urine Glucose (UA) >=500 H Urine Ketones NEGATIVE Urine Blood MODERATE H Urine Nitrite NEGATIVE Ur Leukocyte Esterase SMALL H Urine WBC (Auto) 63 Urine RBC (Auto) 7 12/19/18 17:07 WBC RBC Hgb Hct MCV MCH MCHC RDW Plt Count Seg Neutrophils % Lymphocytes % Monocytes % Eosinophils % Basophils % Absolute Neutrophils Absolute Lymphocytes Absolute Monocytes Absolute Eosinophils Absolute Basophils Sodium Potassium Chloride Carbon Dioxide Anion Gap BUN Creatinine Est GFR ( Amer) Est GFR (Non-Af Amer) Glucose Calcium Total Bilirubin AST ALT Alkaline Phosphatase Total Protein Albumin TSH 2.84 Urine Color Urine Appearance Urine pH Ur Specific [place] Urine Protein Urine Glucose (UA) Urine Ketones Urine Blood Urine Nitrite Ur Leukocyte Esterase Urine WBC (Auto) Urine RBC (Auto) 12/19/18 12/19/18 12/20/18 17:07 17:07 00:38 Creatine Kinase 30 34 CK-MB (CK-2) < 0.22 Troponin I < 0.012 12/20/18 00:38 Creatine Kinase CK-MB (CK-2) < 0.22 Troponin I < 0.012 Impressions: Chest X-Ray 12/19/18 16:53 IMPRESSION: NO ACUTE RADIOGRAPHIC FINDING IN THE CHEST. Assessment and Plan - Diagnosis (1) Pneumonia Qualifiers: Pneumonia type: due to unspecified organism Laterality: unspecified laterality Lung location: unspecified part of lung Qualified Code(s): J18.9 - Pneumonia, unspecified organism Is this a current diagnosis for this admission?: Yes Plan: Atypical pneumonia. Empiric antibiotics initiated. Supplemental oxygen, incentive spirometry. Follow-up CBC and blood culture. (2) Acute respiratory failure with hypoxia Is this a current diagnosis for this admission?: Yes Plan: Secondary to #1, complicated by morbid obesity. Supplemental oxygen, incentive [place]. Follow-up ambulating saturations (3) Diabetes mellitus affecting in first trimester Is this a current diagnosis for this admission?: Yes Plan: Humalog sliding scale, follow-up medication reconciliation for long-acting agent and A1c. (4) UTI (urinary tract infection) Is this a current diagnosis for this admission?: Yes Plan: Empiric antibiotic initiated. Follow-up urine culture - Time Time Spent with patient: 35 or more minutes - Inpatient Certification Medical Necessity: Need Close Monitoring Due to Risk of Patient Decompensation
[2018-12-20] MEDS: CHLORPHENIRAMINE MALEATE 4 MG TABLET PO SCH ×3 (05:38→18:10)
[2018-12-20] MEDS: HEPARIN SOD (PORCINE) 5,000 UNIT/ML 1 ML SYRINGE SUBCUT SCH ×3 (05:38→23:58)
[2018-12-20] MEDS ORDERED: DEXTROSE 50%-WATER 25 GM/50 ML DISP.SYRIN IV PRN ×2 (06:30)
[2018-12-20 06:55] LABS: ABSOLUTE LYMPHOCYTES (AUTO) 0.5 10^3/uL (0.5-4.7); ABSOLUTE MONOCYTES (AUTO) 0.4 10^3/uL (0.1-1.4); ABSOLUTE NEUT (AUTO) 2.9 10^3/uL (1.7-8.2); BASOPHILS % (AUTO) 0.6 % (0-2); EOSINOPHILS % (AUTO) 1.3 % (0-6); HEMOGLOBIN 10.2 g/dL (12.0-15.5); MEAN CORPUSCULAR HEMOGLOBIN 25.7 pg (27.0-33.4); MEAN CORPUSCULAR HGB CONC 32.8 g/dL (32.0-36.0); MEAN CORPUSCULAR VOLUME 78 fl (80-97); MONOCYTES % (AUTO) 10.3 % (3-13); PLATELET COUNT 177 10^3/uL (150-450); RED BLOOD COUNT 3.96 10^6/uL (3.72-5.28); RED CELL DISTRIBUTION WIDTH 14.8 % (11.5-14.0); SEGMENTED NEUTROPHILS % (AUTO) 74.8 % (42-78); TOTAL CELLS COUNTED % (AUTO) 100 %; WHITE BLOOD COUNT 3.9 10^3/uL (4.0-10.5)
[2018-12-20 07:16] LABS: BLOOD UREA NITROGEN 13 mg/dL (7-20); CALCIUM 9.2 mg/dL (8.4-10.2); CREATINE KINASE 38 U/L (30-135); GLUCOSE 321 mg/dL (75-110); POTASSIUM 4.6 mmol/L (3.6-5.0)
[2018-12-20 07:21] LABS: CARBON DIOXIDE 31 mmol/L (22-30); CHLORIDE 102 mmol/L (98-107)
[2018-12-20 07:32] LABS: ANION GAP 4 (5-19)
[2018-12-20 07:42] LABS: CREATINE KINASE MB < 0.22 ng/mL (<4.55); TROPONIN I < 0.012 ng/mL
[2018-12-20] MEDS: INSULIN LISPRO 100 UNIT/ML 3 ML VIAL SUBCUT SCH ×4 (09:08→23:59)
[2018-12-20] MEDS: HUM INSULIN NPH/REG INSULIN HM 100 UNIT/1 ML 3 ML SUBCUT SCH ×2 (09:08→18:11)
--- NOTE | 2018-12-20 10:52 | PDOC PROGRESS REPORT ---
Subjective Progress Note for:: 12/20/18 Subjective:: This is a 38 years old female patient past medical history of morbid obesity and insulin-dependent diabetes mellitus she presented with 2 days history of cough productive of yellowish sputum fever and shortness of breath. Patient is saturation at presentation was 89% while she is on room air. Patient has been started on Levaquin and she is also on supplemental oxygen. When the patient is insulin-dependent diabetes mellitus patient, she has been only on short-acting NovoLog so he is in the hospital we started her on NPH. Her hemoglobin A1c is 12.5. This morning I seen her resting in bed and she reports this mild improvement in her shortness of breath. Reason For Visit: UTI DIABETES, MORBID OBESITY, PNEUMONIA Physical Exam Vital Signs: Temp Pulse Resp BP Pulse Ox 98.3 F 100 19 124/72 98 12/20/18 07:57 12/20/18 07:57 12/20/18 07:57 12/20/18 07:57 12/20/18 07:57 Intake & Output 12/19/18 12/20/18 12/21/18 06:59 06:59 06:59 Intake Total 1268 Balance 1268 Weight 107.1 kg Results Laboratory Results: 12/20/18 06:45 12/20/18 06:45 12/19/18 12/19/18 12/19/18 07:07 17:07 17:07 WBC 6.0 RBC 4.45 Hgb 11.3 L Hct 34.5 L MCV 78 L MCH 25.4 L MCHC 32.7 RDW 14.9 H Plt Count 207 Seg Neutrophils % 75.5 Lymphocytes % 11.3 L Monocytes % 10.5 Eosinophils % 1.7 Basophils % 1.0 Absolute Neutrophils 4.6 Absolute Lymphocytes 0.7 Absolute Monocytes 0.6 Absolute Eosinophils 0.1 Absolute Basophils 0.1 Sodium 136.6 L Potassium 4.6 Chloride 98 Carbon Dioxide 31 H Anion Gap 8 BUN 11 Creatinine 0.71 Est GFR ( Amer) > 60 Est GFR (Non-Af Amer) > 60 Glucose 345 H Calcium 9.6 Total Bilirubin 0.3 AST 13 L ALT 22 Alkaline Phosphatase 95 Total Protein 7.0 Albumin 3.4 L TSH Urine Color YELLOW Urine Appearance SLIGHTLY-CLOUDY Urine pH 5.0 Ur Specific [place] 1.026 Urine Protein 30 H Urine Glucose (UA) >=500 H Urine Ketones NEGATIVE Urine Blood MODERATE H Urine Nitrite NEGATIVE Ur Leukocyte Esterase SMALL H Urine WBC (Auto) 63 Urine RBC (Auto) 7 12/19/18 12/20/18 12/20/18 17:07 06:45 06:45 WBC 3.9 L RBC 3.96 Hgb 10.2 L Hct 31.0 L MCV 78 L MCH 25.7 L MCHC 32.8 RDW 14.8 H Plt Count 177 Seg Neutrophils % 74.8 Lymphocytes % 13.0 Monocytes % 10.3 Eosinophils % 1.3 Basophils % 0.6 Absolute Neutrophils 2.9 Absolute Lymphocytes 0.5 Absolute Monocytes 0.4 Absolute Eosinophils 0.0 Absolute Basophils 0.0 Sodium 137.0 Potassium 4.6 Chloride 102 Carbon Dioxide 31 H Anion Gap 4 L BUN 13 Creatinine 0.70 Est GFR ( Amer) > 60 Est GFR (Non-Af Amer) > 60 Glucose 321 H Calcium 9.2 Total Bilirubin AST ALT Alkaline Phosphatase Total Protein Albumin TSH 2.84 Urine Color Urine Appearance Urine pH Ur Specific [place] Urine Protein Urine Glucose (UA) Urine Ketones Urine Blood Urine Nitrite Ur Leukocyte Esterase Urine WBC (Auto) Urine RBC (Auto) 12/19/18 12/19/18 12/20/18 17:07 17:07 00:38 Creatine Kinase 30 34 CK-MB (CK-2) < 0.22 Troponin I < 0.012 NT-Pro-B Natriuret Pep 12/20/18 12/20/18 12/20/18 00:38 06:45 06:45 Creatine Kinase 38 CK-MB (CK-2) < 0.22 < 0.22 Troponin I < 0.012 < 0.012 NT-Pro-B Natriuret Pep 12/20/18 06:45 Creatine Kinase CK-MB (CK-2) Troponin I NT-Pro-B Natriuret Pep 182 H Impressions: Chest X-Ray 12/19/18 16:53 IMPRESSION: NO ACUTE RADIOGRAPHIC FINDING IN THE CHEST. Assessment and Plan - Diagnosis (1) Pneumonia Is this a current diagnosis for this admission?: Yes Plan: This is a clinical diagnosis. Continue antibiotics (2) Acute respiratory failure with hypoxia Is this a current diagnosis for this admission?: Yes Plan: Continue supplemental oxygen (3) Insulin dependent diabetes mellitus Is this a current diagnosis for this admission?: Yes Plan: Patient reported that she is only on short-acting NovoLog. That is why her diabetes is not well controlled manifested by hemoglobin A1c of 12.5. Patient has been started on NPH insulin 20 units subcu twice a day. (4) Morbid obesity with BMI of 40.0-44.9, adult Is this a current diagnosis for this admission?: Yes Plan: Patient advised to do lifestyle modification. (5) UTI (urinary tract infection) Is this a current diagnosis for this admission?: Yes Plan: Continue current antibiotics.
[2018-12-20] MEDS: OXYCODONE-ACETAMINOPHEN 5-325 MG TABLET PO PRN (13:13)
[2018-12-20] MEDS: TRAZODONE HCL 50 MG TABLET PO SCH (23:57)
[2018-12-21] MEDS: LEVOFLOXACIN 750 MG/D5W RTU 750 MG/150 ML RTUPB IV SCH ×2 (00:01→21:41)
[2018-12-21] MEDS: OXYCODONE-ACETAMINOPHEN 5-325 MG TABLET PO PRN ×3 (00:01→17:24)
[2018-12-21] MEDS: ACETAMINOPHEN 325 MG TABLET PO PRN ×3 (00:02→15:26)
[2018-12-21] MEDS: IPRATROPIUM/ALBUTEROL 0.5-2.5 MG/3 ML AMPUL NEB SCH ×4 (00:38→23:31)
[2018-12-21] MEDS: HEPARIN SOD (PORCINE) 5,000 UNIT/ML 1 ML SYRINGE SUBCUT SCH ×3 (06:21→21:41)
[2018-12-21] MEDS: INSULIN LISPRO 100 UNIT/ML 3 ML VIAL SUBCUT SCH ×4 (09:05→22:15)
[2018-12-21] MEDS: HUM INSULIN NPH/REG INSULIN HM 100 UNIT/1 ML 3 ML SUBCUT SCH ×2 (09:05→17:19)
[2018-12-21] MEDS: FLUTICASONE NASAL SPRAY 50 MCG/SPRY 120 SPRAY/16 GM NASL SCH ×2 (09:07→21:40)
[2018-12-21] MEDS ORDERED: GUAIFENESIN/D-METHORPHAN (200-20 MG) SYRUP 10 ML PO PRN (14:50)
--- NOTE | 2018-12-21 15:22 | PDOC PROGRESS REPORT ---
Subjective Subjective:: 38 years old female patient past medical history of morbid obesity and insulin- dependent diabetes mellitus she presented with 2 days history of cough productive of yellowish sputum fever and shortness of breath. Patient is saturation at presentation was 89% while she is on room air. Patient has been started on Levaquin and she is also on supplemental oxygen. When the patient is insulin-dependent diabetes mellitus patient, she has been only on short-acting NovoLog so he is in the hospital we started her on NPH. Her hemoglobin A1c is 12.5. This morning I seen her resting in bed and she reports this mild improve ment in her shortness of breath. [id number]-tbeb-old female with history of diabetes mellitus morbid obesity admitted with pneumonia. Also found to have UTI. This morning complaining of cough coughing up greenish sputum. We going to arrange for the sputum cultures started on Robitussin 10 mL 4 times daily. Patient has a low-grade fever of 100.7. Urine culture showing E. coli. on IV levofloxacin. Reason For Visit: UTI DIABETES, MORBID OBESITY, PNEUMONIA Physical Exam Vital Signs: Temp Pulse Resp BP Pulse Ox 100.7 F H 118 H 20 122/70 91 L 12/21/18 10:58 12/21/18 10:58 12/21/18 10:58 12/21/18 10:58 12/21/18 10:58 Intake & Output 12/20/18 12/21/18 12/22/18 06:59 06:59 06:59 Intake Total 1268 1553 900 Balance 1268 1553 900 Weight 107.1 kg 105.6 kg General appearance: PRESENT: no acute distress Head exam: PRESENT: atraumatic Eye exam: PRESENT: PERRLA Mouth exam: PRESENT: moist, tongue midline Neck exam: ABSENT: carotid bruit, JVD, lymphadenopathy, thyromegaly Respiratory exam: PRESENT: decreased breath sounds Cardiovascular exam: PRESENT: RRR. ABSENT: diastolic murmur, rubs, systolic murmur GI/Abdominal exam: PRESENT: normal bowel sounds, soft. ABSENT: distended, guarding, mass, organolmegaly, rebound, tenderness Extremities exam: PRESENT: full ROM. ABSENT: calf tenderness, clubbing, pedal edema Neurological exam: PRESENT: alert, awake, oriented to person, oriented to place, oriented to time, oriented to situation, CN II-XII grossly intact. ABSENT: motor sensory deficit Psychiatric exam: PRESENT: appropriate affect, normal mood. ABSENT: homicidal ideation, suicidal ideation Results Laboratory Results: 12/20/18 06:45 12/20/18 06:45 12/19/18 17:07 Clean Catch Midstream Urine Culture - Final Escherichia Coli 12/19/18 12/19/18 12/20/18 17:07 17:07 00:38 Creatine Kinase 30 34 CK-MB (CK-2) < 0.22 Troponin I < 0.012 NT-Pro-B Natriuret Pep 12/20/18 12/20/18 12/20/18 00:38 06:45 06:45 Creatine Kinase 38 CK-MB (CK-2) < 0.22 < 0.22 Troponin I < 0.012 < 0.012 NT-Pro-B Natriuret Pep 12/20/18 06:45 Creatine Kinase CK-MB (CK-2) Troponin I NT-Pro-B Natriuret Pep 182 H Impressions: Chest X-Ray 12/19/18 16:53 IMPRESSION: NO ACUTE RADIOGRAPHIC FINDING IN THE CHEST. Assessment and Plan - Diagnosis (1) Pneumonia Qualifiers: Pneumonia type: due to unspecified organism Laterality: unspecified laterality Lung location: unspecified part of lung Qualified Code(s): J18.9 - Pneumonia, unspecified organism Is this a current diagnosis for this admission?: Yes Plan: Atypical pneumonia. Empiric antibiotics initiated. Supplemental oxygen, incentive spirometry. Follow-up CBC and blood culture. 12/21/2018-patient was admitted with pneumonia probably community-acquired pneumonia most likely gram-positive organism. Requested for sputum culture. Blood cultures are pending. Presently on IV levofloxacin. To add doxycycline to the present medication. To do the follow-up chest x-ray today. (2) UTI (urinary tract infection) Is this a current diagnosis for this admission?: Yes Plan: Continue current antibiotics. 12/21/2018-patient has a UTI culture came back positive for E. coli. Presently on levofloxacin. Urine culture is pansensitive. (3) Morbid obesity with BMI of 40.0-44.9, adult Is this a current diagnosis for this admission?: Yes Plan: Patient advised to do lifestyle modification. 12/21/2018-patient has BMI more than 40. Diet exercise weight loss discussed with the patient. Lifestyle modifications are discussed with the patient. Dietary consult was requested. (4) Insulin dependent diabetes mellitus Is this a current diagnosis for this admission?: Yes Plan: Patient reported that she is only on short-acting NovoLog. That is why her diabetes is not well controlled manifested by hemoglobin A1c of 12.5. Patient has been started on NPH insulin 20 units subcu twice a day. 12/21/2018-patient history of type 2 diabetes mellitus. Patient has insulin sliding scale. Hemoglobin A1c is 12.5. Presently on insulin sliding scale and NPH 20 units twice a day. Blood sugar today 227 - Time Time Spent with patient: 15-24 minutes Medications reviewed and adjusted accordingly: Yes Anticipated discharge: Home
--- NOTE | 2018-12-21 19:52 | RADIOLOGY REPORT (SQ) ---
EXAM DESCRIPTION: CHEST 2 VIEWS COMPLETED DATE/TIME: 12/21/2018 7:44 pm REASON FOR STUDY: pneumonia COMPARISON: 12/19/2018 EXAM PARAMETERS: NUMBER OF VIEWS: two views TECHNIQUE: Digital Frontal and Lateral radiographic views of the chest acquired. RADIATION DOSE: NA LIMITATIONS: none FINDINGS: LUNGS AND PLEURA: Increasing bilateral interstitial airspace disease. This could represen t interstitial pneumonitis or edema. No definite effusions. MEDIASTINUM AND HILAR STRUCTURES: No masses or contour abnormalities. HEART AND VASCULAR STRUCTURES: Heart normal size. No evidence for failure. BONES: No acute findings. HARDWARE: None in the chest. OTHER: No other significant finding. IMPRESSION: Increasing bilateral interstitial airspace disease. Differential includes interstitial pneumonitis or edema. TECHNICAL DOCUMENTATION: JOB ID: [id number] [employer]- All Rights Reserved Reading location - IP/workstation name: [email or web address]
[2018-12-21] MEDS: TRAZODONE HCL 50 MG TABLET PO SCH (21:40)
[2018-12-21] MEDS: DOXYCYCLINE HYCLATE 100 MG TABLET PO SCH (21:40)
[2018-12-22] MEDS: OXYCODONE-ACETAMINOPHEN 5-325 MG TABLET PO PRN ×3 (01:19→22:21)
[2018-12-22] MEDS: HEPARIN SOD (PORCINE) 5,000 UNIT/ML 1 ML SYRINGE SUBCUT SCH ×3 (06:34→22:20)
[2018-12-22 06:44] LABS: ABSOLUTE LYMPHOCYTES (AUTO) 0.9 10^3/uL (0.5-4.7); ABSOLUTE MONOCYTES (AUTO) 0.4 10^3/uL (0.1-1.4); BASOPHILS % (AUTO) 0.4 % (0-2); EOSINOPHILS % (AUTO) 0.1 % (0-6); HEMATOCRIT 30.3 % (36.0-47.0); HEMOGLOBIN 10.2 g/dL (12.0-15.5); LYMPHOCYTES % (AUTO) 21.4 % (13-45); MEAN CORPUSCULAR HEMOGLOBIN 25.9 pg (27.0-33.4); MEAN CORPUSCULAR HGB CONC 33.5 g/dL (32.0-36.0); MEAN CORPUSCULAR VOLUME 77 fl (80-97); MONOCYTES % (AUTO) 9.7 % (3-13); PLATELET COUNT 166 10^3/uL (150-450); RED BLOOD COUNT 3.92 10^6/uL (3.72-5.28); RED CELL DISTRIBUTION WIDTH 14.6 % (11.5-14.0); SEGMENTED NEUTROPHILS % (AUTO) 68.4 % (42-78); TOTAL CELLS COUNTED % (AUTO) 100 %; WHITE BLOOD COUNT 4.4 10^3/uL (4.0-10.5)
[2018-12-22 07:13] LABS: ALANINE AMINOTRANSFERASE 66 U/L (9-52); ALBUMIN 3.1 g/dL (3.5-5.0); ALKALINE PHOSPHATASE 153 U/L (38-126); ANION GAP 9 (5-19); ASPARTATE AMINO TRANSFERASE 67 U/L (14-36); BILIRUBIN,DIRECT 0.3 mg/dL (0.0-0.4); BILIRUBIN,TOTAL 0.4 mg/dL (0.2-1.3); BLOOD UREA NITROGEN 16 mg/dL (7-20); CALCIUM 8.5 mg/dL (8.4-10.2); CARBON DIOXIDE 29 mmol/L (22-30); CHLORIDE 100 mmol/L (98-107); GLUCOSE 128 mg/dL (75-110); POTASSIUM 4.4 mmol/L (3.6-5.0); SODIUM 137.5 mmol/L (137-145); TOTAL PROTEIN 6.4 g/dL (6.3-8.2)
[2018-12-22] MEDS: IPRATROPIUM/ALBUTEROL 0.5-2.5 MG/3 ML AMPUL NEB SCH ×3 (08:52→23:40)
[2018-12-22] MEDS: INSULIN LISPRO 100 UNIT/ML 3 ML VIAL SUBCUT SCH ×4 (09:57→22:21)
[2018-12-22] MEDS: DOXYCYCLINE HYCLATE 100 MG TABLET PO SCH ×2 (09:57→22:21)
[2018-12-22] MEDS: FLUTICASONE NASAL SPRAY 50 MCG/SPRY 120 SPRAY/16 GM NASL SCH ×2 (09:57→22:20)
[2018-12-22] MEDS: HUM INSULIN NPH/REG INSULIN HM 100 UNIT/1 ML 3 ML SUBCUT SCH ×3 (09:57→17:07)
--- NOTE | 2018-12-22 13:10 | PDOC PROGRESS REPORT ---
Subjective Progress Note for:: 12/22/18 Subjective:: 38 years old female patient past medical history of morbid obesity and insulin- dependent diabetes mellitus she presented with 2 days history of cough productive of yellowish sputum fever and shortness of breath. Patient is saturation at presentation was 89% while she is on room air. Patient has been started on Levaquin and she is also on supplemental oxygen. When the patient is insulin-dependent diabetes mellitus patient, she has been only on short-acting NovoLog so he is in the hospital we started her on NPH. Her hemoglobin A1c is 12.5. This morning I seen her resting in bed and she reports this mild improvement in her shortness of breath. 12/21/[id number]-spae-old female with history of diabetes mellitus morbid obesity admitted with pneumonia. Also found to have UTI. This morning complaining of cough coughing up greenish sputum. We going to arrange for the sputum cultures started on Robitussin 10 mL 4 times daily. Patient has a low-grade fever of 100.7. Urine culture showing E. coli. on IV levofloxacin. 38-year-old female with history of diabetes mellitus, morbid obesity, treated for pneumonia. Also found to have UTI. Patient is presently on IV levofloxacin and doxycycline. Max is 100. No acute events in the last 24 hours. Culture shows rare gram-positive cocci in pairs and clusters and gram- positive rods. Reason For Visit: ACUTE RESPIRATORY FAILURE, PNEUMONIA Physical Exam Vital Signs: Temp Pulse Resp BP Pulse Ox 100.0 F 110 H 20 119/44 L 94 12/22/18 00:25 12/22/18 08:52 12/22/18 08:52 12/22/18 00:25 12/22/18 08:52 Intake & Output 12/21/18 12/22/18 12/23/18 06:59 06:59 06:59 Intake Total 1553 1582 Balance 1553 1582 Weight 105.6 kg 101 kg General appearance: PRESENT: mild distress, obese Head exam: PRESENT: atraumatic Eye exam: PRESENT: PERRLA Mouth exam: PRESENT: moist, tongue midline Neck exam: ABSENT: carotid bruit, JVD, lymphadenopathy, thyromegaly Respiratory exam: PRESENT: decreased breath sounds, wheezes Cardiovascular exam: PRESENT: RRR. ABSENT: diastolic murmur, rubs, systolic murmur GI/Abdominal exam: PRESENT: normal bowel sounds, soft. ABSENT: distended, gua rding, mass, organolmegaly, rebound, tenderness Extremities exam: PRESENT: full ROM. ABSENT: calf tenderness, clubbing, pedal edema Neurological exam: PRESENT: alert, awake, oriented to person, oriented to place, oriented to time, oriented to situation, CN II-XII grossly intact. ABSENT: motor sensory deficit Psychiatric exam: PRESENT: appropriate affect, normal mood. ABSENT: homicidal ideation, suicidal ideation Results Laboratory Results: 12/22/18 06:22 12/22/18 06:22 12/22/18 12/22/18 06:22 06:22 WBC 4.4 RBC 3.92 Hgb 10.2 L Hct 30.3 L MCV 77 L MCH 25.9 L MCHC 33.5 RDW 14.6 H Plt Count 166 Seg Neutrophils % 68.4 Lymphocytes % 21.4 Monocytes % 9.7 Eosinophils % 0.1 Basophils % 0.4 Absolute Neutrophils 3.0 Absolute Lymphocytes 0.9 Absolute Monocytes 0.4 Absolute Eosinophils 0.0 Absolute Basophils 0.0 Sodium 137.5 Potassium 4.4 Chloride 100 Carbon Dioxide 29 Anion Gap 9 BUN 16 Creatinine 0.75 Est GFR ( Amer) > 60 Est GFR (Non-Af Amer) > 60 Glucose 128 H Calcium 8.5 Magnesium 1.7 Total Bilirubin 0.4 AST 67 H ALT 66 H Alkaline Phosphatase 153 H Total Protein 6.4 Albumin 3.1 L 12/19/18 12/19/18 12/20/18 17:07 17:07 00:38 Creatine Kinase 30 34 CK-MB (CK-2) < 0.22 Troponin I < 0.012 NT-Pro-B Natriuret Pep 12/20/18 12/20/18 12/20/18 00:38 06:45 06:45 Creatine Kinase 38 CK-MB (CK-2) < 0.22 < 0.22 Troponin I < 0.012 < 0.012 NT-Pro-B Natriuret Pep 12/20/18 06:45 Creatine Kinase CK-MB (CK-2) Troponin I NT-Pro-B Natriuret Pep 182 H Impressions: Chest X-Ray 12/21/18 00:00 IMPRESSION: Increasing bilateral interstitial airspace disease. Differential includes interstitial pneumonitis or edema. Assessment and Plan - Diagnosis (1) Pneumonia Qualifiers: Pneumonia type: due to unspecified organism Laterality: unspecified laterality Lung location: unspecified part of lung Qualified Code(s): J18.9 - Pneumonia, unspecified organism Is this a current diagnosis for this admission?: Yes Plan: Atypical pneumonia. Empiric antibiotics initiated. Supplemental oxygen, incentive spirometry. Follow-up CBC and blood culture. 12/21/2018-patient was admitted with pneumonia probably community-acquired pneumonia most likely gram-positive organism. Requested for sputum culture. Blood cultures are pending. Presently on IV levofloxacin. To add doxycycline to the present medication. To do the follow-up chest x-ray today. 12/22/2018-patient has pneumonia most likely community-acquired pneumonia sputum culture showing gram-positive cocci in clusters and pairs and also few gram- positive rods. Presently patient is on IV levofloxacin and p.o. doxycycline. T-max is 100.0. Patient is looking much better today. WBC count is normal. Plan is to continue the present management. (2) UTI (urinary tract infection) Is this a current diagnosis for this admission?: Yes Plan: Continue current antibiotics. 12/21/2018-patient has a UTI culture came back positive for E. coli. Presently on levofloxacin. Urine culture is pansensitive. 12/22/2018-urine culture is positive for E. coli presently on levofloxacin and p.o. DOXYCYCLINE plan is to continue the present management. (3) Morbid obesity with BMI of 40.0-44.9, adult Is this a current diagnosis for this admission?: Yes Plan: Patient advised to do lifestyle modification. 12/21/2018-patient has BMI more than 40. Diet exercise weight loss discussed with the patient. Lifestyle modifications are discussed with the patient. Dietary consult was requested. 12/22/2018-patient's BMI is more than 40 again diet exercise weight loss lifestyle modifications are discussed with the patient. (4) Insulin dependent diabetes mellitus Is this a current diagnosis for this admission?: Yes Plan: Patient reported that she is only on short-acting NovoLog. That is why her diabetes is not well controlled manifested by hemoglobin A1c of 12.5. Patient has been started on NPH insulin 20 units subcu twice a day. 12/21/2018-patient history of type 2 diabetes mellitus. Patient has insulin sliding scale. Hemoglobin A1c is 12.5. Presently on insulin sliding scale and NPH 20 units twice a day. Blood sugar today 227 12/22/2018-patient has type 2 diabetes mellitus hemoglobin A1c is 12.5 latest blood sugar is 187 presently on insulin sliding scale NPH 20 units twice a day I am going to increase the insulin to 25 units twice a day from today. - Time Time Spent with patient: 15-24 minutes Medications reviewed and adjusted accordingly: Yes Anticipated discharge: Home
[2018-12-22] MEDS: LEVOFLOXACIN 750 MG/D5W RTU 750 MG/150 ML RTUPB IV SCH (22:19)
[2018-12-22] MEDS: TRAZODONE HCL 50 MG TABLET PO SCH (22:21)
[2018-12-23] MEDS: HEPARIN SOD (PORCINE) 5,000 UNIT/ML 1 ML SYRINGE SUBCUT SCH ×2 (06:00→13:01)
[2018-12-23 06:39] LABS: ABSOLUTE EOSINOPHILS # (AUTO) 0.1 10^3/uL (0.0-0.6); ABSOLUTE LYMPHOCYTES (AUTO) 1.5 10^3/uL (0.5-4.7); ABSOLUTE MONOCYTES (AUTO) 0.4 10^3/uL (0.1-1.4); ABSOLUTE NEUT (AUTO) 1.9 10^3/uL (1.7-8.2); BASOPHILS % (AUTO) 0.6 % (0-2); EOSINOPHILS % (AUTO) 1.6 % (0-6); HEMOGLOBIN 10.2 g/dL (12.0-15.5); LYMPHOCYTES % (AUTO) 39.8 % (13-45); MEAN CORPUSCULAR HEMOGLOBIN 25.7 pg (27.0-33.4); MEAN CORPUSCULAR VOLUME 78 fl (80-97); MONOCYTES % (AUTO) 9.5 % (3-13); PLATELET COUNT 163 10^3/uL (150-450); RED BLOOD COUNT 3.98 10^6/uL (3.72-5.28); RED CELL DISTRIBUTION WIDTH 15.1 % (11.5-14.0); SEGMENTED NEUTROPHILS % (AUTO) 48.5 % (42-78); TOTAL CELLS COUNTED % (AUTO) 100 %; WHITE BLOOD COUNT 3.8 10^3/uL (4.0-10.5)
[2018-12-23 06:55] LABS: BLOOD UREA NITROGEN 15 mg/dL (7-20); GLUCOSE 98 mg/dL (75-110)
[2018-12-23 06:56] LABS: ALANINE AMINOTRANSFERASE 54 U/L (9-52); ALBUMIN 3.1 g/dL (3.5-5.0); ALKALINE PHOSPHATASE 216 U/L (38-126); ANION GAP 5 (5-19); ASPARTATE AMINO TRANSFERASE 70 U/L (14-36); BILIRUBIN,DIRECT 0.3 mg/dL (0.0-0.4); BILIRUBIN,TOTAL 0.3 mg/dL (0.2-1.3); CARBON DIOXIDE 31 mmol/L (22-30); CHLORIDE 104 mmol/L (98-107); POTASSIUM 4.2 mmol/L (3.6-5.0); SODIUM 140.2 mmol/L (137-145); TOTAL PROTEIN 6.2 g/dL (6.3-8.2)
[2018-12-23] MEDS: IPRATROPIUM/ALBUTEROL 0.5-2.5 MG/3 ML AMPUL NEB SCH ×2 (07:44→15:50)
[2018-12-23] MEDS: INSULIN LISPRO 100 UNIT/ML 3 ML VIAL SUBCUT SCH ×2 (08:20→12:31)
[2018-12-23] MEDS: HUM INSULIN NPH/REG INSULIN HM 100 UNIT/1 ML 3 ML SUBCUT SCH (09:14)
[2018-12-23] MEDS: DOXYCYCLINE HYCLATE 100 MG TABLET PO SCH (09:15)
[2018-12-23] MEDS: FLUTICASONE NASAL SPRAY 50 MCG/SPRY 120 SPRAY/16 GM NASL SCH (09:15)
--- NOTE | 2018-12-23 16:05 | PDOC DISCHARGE SUMMARY ---
General - Admit/Disc Date/PCP Admission Date/Primary Care Provider: 12/21/18 14:53 ADE FUNG, Discharge Date: 12/23/18 - Discharge Diagnosis (1) Pneumonia Is this a current diagnosis for this admission?: Yes Summary: Atypical pneumonia. Empiric antibiotics initiated. Supplemental oxygen, incentive spirometry. Follow-up CBC and blood culture. 12/21/2018-patient was admitted with pneumonia probably community-acquired pneumonia most likely gram-positive organism. Requested for sputum culture. Blood cultures are pending. Presently on IV levofloxacin. To add doxycycline to the present medication. To do the follow-up chest x-ray today. 12/22/2018-patient has pneumonia most likely community-acquired pneumonia sputum culture showing gram-positive cocci in clusters and pairs and also few gram- positive rods. Presently patient is on IV levofloxacin and p.o. doxycycline. T-max is 100.0. Patient is looking much better today. WBC count is normal. Plan is to continue the present management. 12/23/[id number]-pwpe-old female admitted for shortness of breath found to have community-acquired pneumonia most likely secondary to gram-positive organisms. Patient is treated with p.o. doxycycline and IV levofloxacin. Patient is afebrile. Doing extremely well. WBC count is normal. Patient is expressing desire to go home. I gave a prescription for doxycycline 100 mg p.o. twice daily for 5 days. Patient was strongly advised to follow-up with the primary care physician in 3-5 days. (2) UTI (urinary tract infection) Is this a current diagnosis for this admission?: Yes Summary: Continue current antibiotics. 12/21/2018-patient has a UTI culture came back positive for E. coli. Presently on levofloxacin. Urine culture is pansensitive. 12/22/2018-urine culture is positive for E. coli presently on levofloxacin and p.o. DOXYCYCLINE plan is to continue the present management. 12/23/2018-patient's urine culture is positive for E. coli she is going home on p.o. doxycycline patient is afebrile. (3) Morbid obesity with BMI of 40.0-44.9, adult Is this a current diagnosis for this admission?: Yes Summary: Patient advised to do lifestyle modification. 12/21/2018-patient has BMI more than 40. Diet exercise weight loss discussed with the patient. Lifestyle modifications are discussed with the patient. Dietary consult was requested. 12/22/2018-patient's BMI is more than 40 again diet exercise weight loss lifestyle modifications are discussed with the patient. 12/23/2018-patient's BMI is more than 40 again diet exercise weight loss lifestyle modifications are discussed with the patient. Dietary consult was provided during the hospital stay. (4) Insulin dependent diabetes mellitus Is this a current diagnosis for this admission?: Yes Summary: Patient reported that she is only on short-acting NovoLog. That is why her diabetes is not well controlled manifested by hemoglobin A1c of 12.5. Patient has been started on NPH insulin 20 units subcu twice a day. 12/21/2018-patient history of type 2 diabetes mellitus. Patient has insulin sliding scale. Hemoglobin A1c is 12.5. Presently on insulin sliding scale and NPH 20 units twice a day. Blood sugar today 227 12/22/2018-patient has type 2 diabetes mellitus hemoglobin A1c is 12.5 latest blood sugar is 187 presently on insulin sliding scale NPH 20 units twice a day I am going to increase the insulin to 25 units twice a day from today. 12/23/2018-patient has history of type 2 diabetes mellitus, hemoglobin A1c is 12.5. Latest blood sugar is 224. Diet exercise weight loss again lifestyle modifications discussed with the patient. Patient is advised to continue insulin at home. - Additional Information Resuscitation Status: Full Code Discharge Diet: Cardiac Discharge Activity: Activity As Tolerated Prescriptions: Doxycycline Hyclate [Vibramycin 100 mg Tablet] 100 mg PO Q12 #10 tablet Home Medications: Insulin Aspart [Novolog Insulin (Aspart) 100 unit/mL] 0 unit SUBCUT .SLD SCALE 12/20/18 Doxycycline Hyclate [Vibramycin 100 mg Tablet] 100 mg PO Q12 #10 tablet 12/23/18 History of Present Illness History of Present Illness: PERLA GRULLON is a 38 year old female 38 year old female with a past medical history of morbid obesity and insulin dependent diabetes. She presents with 2 days of fever nonproductive cough and shortness of breath. She denies rhinorrhea, sore throat or acid reflux. She denies infectious contacts or recent antibiotic use. In the emergency room she is found to have retractions and use of accessory muscles with hypoxia of 89% on room air and rhonchi on exam. She received empiric antibiotics and referred to the hospitalist for observation. Patient denies chest pain, palpitations nausea or vomiting. She denies [id number] medication for symptoms. Physical Exam Vital Signs: Temp Pulse Resp BP Pulse Ox 98.0 F 96 18 100/54 L 90 L 12/23/18 15:29 12/23/18 15:29 12/23/18 15:29 12/23/18 15:29 12/23/18 15:29 Intake & Output 12/22/18 12/23/18 12/24/18 06:59 06:59 06:59 Intake Total 1582 566 236 Balance 1582 566 236 Weight 101 kg 105.6 kg General appearance: PRESENT: no acute distress Head exam: PRESENT: atraumatic Eye exam: PRESENT: PERRLA Mouth exam: PRESENT: dry mucosa Neck exam: ABSENT: carotid bruit, JVD, lymphadenopathy, thyromegaly Respiratory exam: PRESENT: clear to auscultation cruz. ABSENT: rales, rhonchi, wheezes Cardiovascular exam: PRESENT: RRR. ABSENT: diastolic murmur, rubs, systolic murmur GI/Abdominal exam: PRESENT: normal bowel sounds, soft. ABSENT: distended, guarding, mass, organolmegaly, rebound, tenderness Extremities exam: PRESENT: full ROM. ABSENT: calf tenderness, clubbing, pedal edema Neurological exam: PRESENT: alert, awake, oriented to person, oriented to place, oriented to time, oriented to situation, CN II-XII grossly intact. ABSENT: motor sensory deficit Psychiatric exam: PRESENT: appropriate affect, normal mood. ABSENT: homicidal ideation, suicidal ideation Results Laboratory Results: 12/23/18 06:15 12/23/18 06:15 12/23/18 12/23/18 06:15 06:15 WBC 3.8 L RBC 3.98 Hgb 10.2 L Hct 31.0 L MCV 78 L MCH 25.7 L MCHC 33.0 RDW 15.1 H Plt Count 163 Seg Neutrophils % 48.5 Lymphocytes % 39.8 Monocytes % 9.5 Eosinophils % 1.6 Basophils % 0.6 Absolute Neutrophils 1.9 Absolute Lymphocytes 1.5 Absolute Monocytes 0.4 Absolute Eosinophils 0.1 Absolute Basophils 0.0 Sodium 140.2 Potassium 4.2 Chloride 104 Carbon Dioxide 31 H Anion Gap 5 BUN 15 Creatinine 0.67 Est GFR ( Amer) > 60 Est GFR (Non-Af Amer) > 60 Glucose 98 Calcium 9.0 Magnesium 2.0 Total Bilirubin 0.3 AST 70 H ALT 54 H Alkaline Phosphatase 216 H Total Protein 6.2 L Albumin 3.1 L 12/21/18 15:05 Sputum Gram Stain - Final 12/21/18 15:05 Sputum Sputum Culture - Final NORMAL JAKI 12/19/18 12/19/18 12/20/18 17:07 17:07 00:38 Creatine Kinase 30 34 CK-MB (CK-2) < 0.22 Troponin I < 0.012 NT-Pro-B Natriuret Pep 12/20/18 12/20/18 12/20/18 00:38 06:45 06:45 Creatine Kinase 38 CK-MB (CK-2) < 0.22 < 0.22 Troponin I < 0.012 < 0.012 NT-Pro-B Natriuret Pep 12/20/18 06:45 Creatine Kinase CK-MB (CK-2) Troponin I NT-Pro-B Natriuret Pep 182 H Impressions: Chest X-Ray 12/21/18 00:00 IMPRESSION: Increasing bilateral interstitial airspace disease. Differential includes interstitial pneumonitis or edema. Qualifiers - * PATIENT BEING DISCHARGED WITH ANY OF THE FOLLOWING DIAGNOSIS: No VTE patient discharged on overlapping Therapy?: No
[2018-12-23 16:08] VITALS: BP 121/73
== END 2018-12-23 16:15 | disposition home or self-care (01) | DRG 193 ==
LOC: ER 16:38 → EH 19:51 → 5 23:35 → OBSVTOIN 12-21 14:53
PROVIDERS: ADMIT Internal Medicine; ATTEND Internal Medicine
PROC: 5A09457 Assistance with Respiratory Ventilation, 24-96 Consecutive Hours, Continuous Positive Airway Pressure (ICD-10-PCS; principal; 2018-12-20)
DX: J15.9 Unspecified bacterial pneumonia (principal); J96.01 Acute respiratory failure with hypoxia; N39.0 Urinary tract infection, site not specified; Z68.41 Body mass index [BMI] 40.0-44.9, adult; E66.01 Morbid (severe) obesity due to excess calories; E11.9 Type 2 diabetes mellitus without complications; B96.20 Unspecified Escherichia coli [E. coli] as the cause of diseases classified elsewhere; Z79.4 Long term (current) use of insulin; Z90.49 Acquired absence of other specified parts of digestive tract; Z83.3 Family history of diabetes mellitus; Z82.3 Family history of stroke; Z88.0 Allergy status to penicillin
CPT/HCPCS: 36415; 71046; 80048; 80053; 80307; 81001; 81025; 82550; 82553; 82962; 83036; 83735; 83880; 84443; 84484; 85025; 87040; 87070; 87086; 87088; 87186; 87205; 87804; 93005; 93010; 94667; 94668; 94799; 96361; 96365; 96366; 99285; J1644; J1815; J1956; J3490; J7120; J7620

== ENCOUNTER → 2019-05-14 | Outpatient (CLI) | payer MEDICAID ==
[2019-05-14 12:53] LABS: BACTERIA (WET MOUNT) 4+ BACTERIA SEEN; EPITHELIALS (WET MOUNT) 3+ EPITHELIALS SEEN; RBCS (WET MOUNT) FEW RBCS SEEN; T.VAGINALIS (WET MOUNT) NO TRICHOMONAS SEEN; WBCS (WET MOUNT) 3+ WBCS SEEN; YEAST (WET MOUNT) NO YEAST SEEN
[2019-05-14 14:17] LABS: CHLAM PCR NOT DETECTED (NOT DETECT)
== END ==
LOC: LAB 12:42
PROVIDERS: ATTEND Nurse Practitioner Family
DX: N89.8 Other specified noninflammatory disorders of vagina (principal); R30.0 Dysuria
CPT/HCPCS: 87086; 87088; 87186; 87210; 87491; 87591

== ENCOUNTER 2019-05-21 10:14 | Emergency (ER) | payer OTHER, MEDICAID ==
[2019-05-21] MEDS ORDERED: KETOROLAC TROMETHAMINE 60 MG/2 ML SDV IM ONE (10:38)
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
[2019-05-21 11:47] VITALS: BP 135/87
== END 2019-05-21 11:45 | disposition home or self-care (01) ==
LOC: ER 10:14
DX: M54.9 Dorsalgia, unspecified (principal); V87.7XXA Person injured in collision between other specified motor vehicles (traffic), initial encounter; E11.9 Type 2 diabetes mellitus without complications
CPT/HCPCS: 99283; 96372; 71101; J1885

== ENCOUNTER 2019-10-24 15:36 | Emergency (ER) | payer SELFPAY ==
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
[2019-10-24] MEDS: NORMAL SALINE 1000 ML 1,000 ML IV PRN ×2 (17:01→18:05)
[2019-10-24 17:02] LABS: VENOUS BLOOD BASE EXCESS 5.2 mmol/L; VENOUS BLOOD HCO3 32.3 mmol/L (20-32); VENOUS BLOOD PCO2 60.3 mmHg (35-63); VENOUS BLOOD PH 7.35 (7.30-7.42)
[2019-10-24 17:05] LABS: ABSOLUTE EOSINOPHILS # (AUTO) 0.2 10^3/uL (0.0-0.6); ABSOLUTE LYMPHOCYTES (AUTO) 1.9 10^3/uL (0.5-4.7); ABSOLUTE MONOCYTES (AUTO) 0.6 10^3/uL (0.1-1.4); ABSOLUTE NEUT (AUTO) 5.4 10^3/uL (1.7-8.2); BASOPHILS % (AUTO) 0.5 % (0-2); EOSINOPHILS % (AUTO) 1.9 % (0-6); HEMATOCRIT 34.5 % (36.0-47.0); HEMOGLOBIN 11.1 g/dL (12.0-15.5); LYMPHOCYTES % (AUTO) 23.7 % (13-45); MEAN CORPUSCULAR HEMOGLOBIN 25.1 pg (27.0-33.4); MEAN CORPUSCULAR HGB CONC 32.1 g/dL (32.0-36.0); MEAN CORPUSCULAR VOLUME 78 fl (80-97); MONOCYTES % (AUTO) 7.6 % (3-13); PLATELET COUNT 228 10^3/uL (150-450); RED BLOOD COUNT 4.41 10^6/uL (3.72-5.28); RED CELL DISTRIBUTION WIDTH 15.6 % (11.5-14.0); SEGMENTED NEUTROPHILS % (AUTO) 66.3 % (42-78); TOTAL CELLS COUNTED % (AUTO) 100 %; WHITE BLOOD COUNT 8.1 10^3/uL (4.0-10.5)
--- NOTE | 2019-10-24 17:12 | ER Document Report ---
ED Blood Sugar Problem - General Chief Complaint: High Blood Sugar Stated Complaint: ELEVATED SUGAR, LEFT EYE PAIN Time Seen by Provider: 10/24/19 16:03 Primary Care Provider: MARTA COWAN FNP-C [NURSE PRACTITIONER] - Follow up as needed Mode of Arrival: Ambulatory Notes: Patient is a 39-year-old white female with past medical history of obesity and type 2 diabetes who presents to the emergency department with a chief complaint of elevated blood sugar. She states she has been off her medications for a few weeks that she has been awaiting specialist involvement due to uncontrolled landa gars with her PCP. She states she is supposed to follow-up within the next few days but states yesterday she started having some irritation of the left eye, continued monitoring and measuring blood sugars over 500, had her father checked today and it was 507 so she decided to have him bring her for evaluation. She states this morning when she awoke the left eye was hard to open. She states is been draining a clear drainage since. She describes a gritty burning sensation in the eye that is worse with light. She denies any trauma or injury to the eye. Denies any visual disturbances. Denies any localized headache or fevers. Denies any other pain, complaints or concerns at this time. She is currently on Macrobid for a recently diagnosed UTI. TRAVEL OUTSIDE OF THE [place] IN LAST 30 DAYS: No - Related Data Allergies/Adverse Reactions: onion Allergy (Verified 10/24/19 16:02) Penicillins Allergy (Verified 10/24/19 16:02) Past Medical History - General Information source: Patient - Social History Smoking Status: Former Smoker Frequency of alcohol use: None Drug Abuse: None Family History: Arthritis, CVA, DM, Hypertension, Malignancy Patient has suicidal ideation: No Patient has homicidal ideation: No Endocrine Medical History: Reports: Hx Diabetes Mellitus Type 2 Renal/ Medical History: Reports: Hx Kidney Stones. Denies: Hx Peritoneal Dialysis GI Medical History: Reports: Hx Ulcer, Hx Colonoscopy, Hx Endoscopy Psychiatric Medical History: Denies: Hx Depression Past Surgical History: Reports: Hx Section, Hx Cholecystectomy, Hx Kidney (Renal Surgery) - lazer for stones - Immunizations Immunizations up to date: Yes Hx Diphtheria, Pertussis, Tetanus Vaccination: Yes Review of Systems - Review of Systems Constitutional: No symptoms reported EENT: Eye pain, Eye discharge Gastrointestinal: No symptoms reported -: Yes All other systems reviewed and negative Physical Exam - Vital signs Vitals: Temp Pulse Resp BP Pulse Ox 98.8 F 100 20 148/93 H 97 10/24/19 15:59 10/24/19 15:59 10/24/19 15:59 10/24/19 15:59 10/24/19 15:59 - General General appearance: Appears well, Alert - HEENT Head: Normocephalic, Atraumatic Eyes: Other - Injected left conjunctiva, mild. Pupils equal round reactive Conjunctiva: Injected - Left. No: Purulent discharge Extraocular movements intact: Yes Eyelashes: Normal Pupils: PERRL Right intraocular pressure: 10 Left intraocular pressure: 12 Nerve palsy: Yes Visual cerda normal: Yes Ears: Normal External canal: Normal Tympanic membrane: Normal Sinus: Normal Nasal: Normal Mouth/Lips: Normal Pharynx: Normal Neck: Normal, Supple. No: Lymphadenopathy - Respiratory Respiratory status: No respiratory distress Chest status: Nontender Breath sounds: Normal Chest palpation: Normal - Cardiovascular Rhythm: Regular Heart sounds: Normal auscultation - Abdominal Inspection: Normal Distension: No distension Bowel sounds: Normal Tenderness: Nontender Organomegaly: No organomegaly - Neurological Neuro grossly intact: Yes Cognition: Normal Orientation: AAOx4 [place] Coma Scale Eye Opening: Spontaneous [place] Coma Scale Verbal: Oriented [place] Coma Scale Motor: Obeys Commands [place] Coma Scale Total: 15 Speech: Normal Sensory: Normal - Psychological Associated symptoms: Normal affect, Normal mood - Skin Skin Temperature: Warm Skin Moisture: Dry Skin Color: Normal Course - Re-evaluation Re-evalutation: 10/24/19 19:58 Reevaluation at this time, patient resting comfortably in the room. Her blood sugar is decreased to 275. She received 2 L normal saline, 10 units IV of normal insulin. She has no evidence of DKA. She is stable and appropriate for discharge and outpatient follow-up. She has an appointment in the morning at 11 AM for continued management of her diabetes. She will take her home Lantus dose tonight as regularly scheduled, monitor her blood sugars closely and follow-up in the morning as scheduled. We will give her a prescription for ofloxacin ophthalmic for her left eye conjunctivitis. Counseled her at length regarding t he importance of outpatient follow-up and advised that she return here or any ER immediately with any new, persistent or worsening symptoms. She verbalized understood and agreed. - Vital Signs Vital signs: Temp Pulse Resp BP Pulse Ox 98.8 F 100 25 H 152/99 H 99 10/24/19 15:59 10/24/19 15:59 10/24/19 19:01 10/24/19 19:01 10/24/19 19:01 - Laboratory Result Diagrams: 10/24/19 16:40 10/24/19 16:40 Laboratory results interpreted by me: 10/24/19 10/24/19 10/24/19 16:03 16:40 16:40 Hgb 11.1 L Hct 34.5 L MCV 78 L MCH 25.1 L RDW 15.6 H VBG HCO3 Sodium 135.7 L Potassium 5.4 H Chloride 96 L Carbon Dioxide 31 H Glucose 442 H* POC Glucose 463 H* Urine Glucose (UA) Urine Blood Ur Leukocyte Esterase 10/24/19 10/24/19 10/24/19 16:40 18:48 18:49 Hgb Hct MCV MCH RDW VBG HCO3 32.3 H Sodium Potassium Chloride Carbon Dioxide Glucose POC Glucose 345 H Urine Glucose (UA) >=500 H Urine Blood MODERATE H Ur Leukocyte Esterase LARGE H 10/24/19 19:51 Hgb Hct MCV MCH RDW VBG HCO3 Sodium Potassium Chloride Carbon Dioxide Glucose POC Glucose 271 H Urine Glucose (UA) Urine Blood Ur Leukocyte Esterase Discharge - Discharge Clinical Impression: Conjunctivitis Uncontrolled diabetes mellitus Qualifiers: Diabetes mellitus type: type 2 Glycemic state: with hyperglycemia Qualified Code(s): E11.65 - Type 2 diabetes mellitus with hyperglycemia Condition: Stable Disposition: HOME, SELF-CARE Instructions: Hyperglycemia ([facility]), Conjunctivitis ([facility]) Additional Instructions: Follow-up with your doctor tomorrow morning at 11 AM as scheduled. Monitor your blood sugars closely. Return here or any ER immediately with any new, persistent or worsening symptoms. Prescriptions: Ofloxacin [Ocuflox] 5 ml OP QID #10 ml Referrals: MARTA COWAN FNP-C [NURSE PRACTITIONER] - Follow up as needed
[2019-10-24] MEDS ORDERED: TETRACAINE HCL 0.5% OPH SOLN 4 ML OS ONE (17:14)
[2019-10-24 17:18] LABS: ALBUMIN 3.8 g/dL (3.5-5.0); ALKALINE PHOSPHATASE 65 U/L (38-126); ANION GAP 9 (5-19); ASPARTATE AMINO TRANSFERASE 16 U/L (14-36); BILIRUBIN,DIRECT 0.3 mg/dL (0.0-0.4); BILIRUBIN,TOTAL 0.4 mg/dL (0.2-1.3); BLOOD UREA NITROGEN 17 mg/dL (7-20); CALCIUM 10.2 mg/dL (8.4-10.2); CARBON DIOXIDE 31 mmol/L (22-30); CHLORIDE 96 mmol/L (98-107); POTASSIUM 5.4 mmol/L (3.6-5.0); TOTAL PROTEIN 7.6 g/dL (6.3-8.2)
[2019-10-24 17:36] LABS: GLUCOSE 442 mg/dL (75-110)
[2019-10-24] MEDS ORDERED: INSULIN REG, HUMAN 100 UNIT/ML 3 ML VIAL (PYX) IV ONE (18:06)
[2019-10-24 19:26] LABS: APPEARANCE,URINE CLOUDY; BILIRUBIN,URINE NEGATIVE (NEGATIVE); COLOR,URINE YELLOW; GLUCOSE, URINE >=500 mg/dL (NEGATIVE); KETONES,URINE NEGATIVE (NEGATIVE); LEUKOCYTE ESTERASE,URINE LARGE (NEGATIVE); NITRITE,URINE NEGATIVE (NEGATIVE); PROTEIN,URINE NEGATIVE (NEGATIVE); URINE SPECIFIC GRAVITY 1.026; UROBILINOGEN,URINE NEGATIVE mg/dL (<2.0)
[2019-10-24 20:18] VITALS: BP 158/85
--- NOTE | 2019-10-24 21:51 | EKG REPORT ---
SEVERITY:- NORMAL ECG - SINUS RHYTHM : Confirmed by: Deanna Lindsey MD 24-Oct-2019 21:51:10
== END 2019-10-24 20:26 | disposition home or self-care (01) ==
LOC: ER 15:36
DX: E11.65 Type 2 diabetes mellitus with hyperglycemia (principal); H10.9 Unspecified conjunctivitis; N39.0 Urinary tract infection, site not specified; Z91.018 Allergy to other foods; Z88.0 Allergy status to penicillin; Z87.891 Personal history of nicotine dependence
CPT/HCPCS: 93005; 36415; 82962; 84702; 85025; 80053; 81001; 82803; 93010; J1815; J7030; J3490; 96360; 96361; 99283

== ENCOUNTER → 2019-12-02 | Outpatient (CLI) | payer MEDICAID | LOC: OD 11:53 | PROVIDERS: ATTEND Nurse Practitioner Family | DX: R82.71 Bacteriuria (principal) | CPT/HCPCS: 87086; 87088; 87186 ==

== ENCOUNTER 2019-12-03 15:22 | Emergency (ER) | payer MEDICAID ==
--- NOTE | 2019-12-03 15:40 | ER Document Report ---
ED Medical Screen (RME) - General Chief Complaint: Abdominal Pain Stated Complaint: VOMITING/NAUSEA/DIARRHEA Time Seen by Provider: 12/03/19 15:34 Primary Care Provider: AMANDA SABA FNP- [Primary Care Provider] - Follow up as needed Mode of Arrival: Ambulatory Information source: Patient Notes: 39-year-old female with history of diabetes kidney disease presents with complaints of upper abdominal pain with nausea vomiting and diarrhea since Thursday. Reports symptoms started after her bydureon injection. Reports she vomited multiple times on Thursday and then 3 times today. Reports fever Thursday, none since then. Reports diarrhea on a daily basis. She did go see urgent care yesterday and was told if she vomited again to come to the ED. Reports she has been belching rotten egg taste ever since Thursday. Reports decreased appetite due to nausea. I have greeted and performed a rapid initial assessment of this patient. A comprehensive ED assessment and evaluation of the patient, analysis of test results and completion of the medical decision making process will be conducted by additional ED providers. TRAVEL OUTSIDE OF THE [place] IN LAST 30 DAYS: No - Related Data Allergies/Adverse Reactions: onion Allergy (Verified 12/03/19 15:30) Penicillins Allergy (Verified 12/03/19 15:30) Home Medications: lantus. lisinopril Past Medical History - Social History Chew tobacco use (# tins/day): No Frequency of alcohol use: None Drug Abuse: None Endocrine Medical History: Reports: Hx Diabetes Mellitus Type 2 Renal/ Medical History: Reports: Hx Kidney Stones. Denies: Hx Peritoneal Dialysis GI Medical History: Reports: Hx Ulcer, Hx Colonoscopy, Hx Endoscopy Psychiatric Medical History: Denies: Hx Depression Past Surgical History: Reports: Hx Section, Hx Cholecystectomy, Hx Kidney (Renal Surgery) - lazer for stones - Immunizations Immunizations up to date: Yes Hx Diphtheria, Pertussis, Tetanus Vaccination: Yes Physical Exam - Vital signs Vitals: Temp Pulse Resp BP Pulse Ox 98.2 F 101 H 18 129/77 H 100 12/03/19 15:25 12/03/19 15:25 12/03/19 15:25 12/03/19 15:25 12/03/19 15:25 Course - Vital Signs Vital signs: Temp Pulse Resp BP Pulse Ox 98.2 F 101 H 18 129/77 H 100 03/14/20 15:25 12/03/19 15:25 12/03/19 15:25 12/03/19 15:25 12/03/19 15:25 Doctor's Discharge - Discharge Referrals: AMANDA SABA, [employer]-BC [Primary Care Provider] - Follow up as needed
[2019-12-03 16:08] LABS: ABSOLUTE EOSINOPHILS # (AUTO) 0.3 10^3/uL (0.0-0.6); ABSOLUTE LYMPHOCYTES (AUTO) 1.8 10^3/uL (0.5-4.7); ABSOLUTE MONOCYTES (AUTO) 0.7 10^3/uL (0.1-1.4); BASOPHILS % (AUTO) 0.2 % (0-2); EOSINOPHILS % (AUTO) 2.8 % (0-6); HEMOGLOBIN 11.8 g/dL (12.0-15.5); LYMPHOCYTES % (AUTO) 18.3 % (13-45); MEAN CORPUSCULAR HGB CONC 33.6 g/dL (32.0-36.0); MEAN CORPUSCULAR VOLUME 77 fl (80-97); MONOCYTES % (AUTO) 7.3 % (3-13); PLATELET COUNT 260 10^3/uL (150-450); RED BLOOD COUNT 4.53 10^6/uL (3.72-5.28); RED CELL DISTRIBUTION WIDTH 15.4 % (11.5-14.0); SEGMENTED NEUTROPHILS % (AUTO) 71.4 % (42-78); TOTAL CELLS COUNTED % (AUTO) 100 %; WHITE BLOOD COUNT 9.7 10^3/uL (4.0-10.5)
[2019-12-03 16:13] LABS: APPEARANCE,URINE CLOUDY; BILIRUBIN,URINE NEGATIVE (NEGATIVE); COLOR,URINE YELLOW; GLUCOSE, URINE NEGATIVE (NEGATIVE); KETONES,URINE NEGATIVE (NEGATIVE); LEUKOCYTE ESTERASE,URINE LARGE (NEGATIVE); NITRITE,URINE NEGATIVE (NEGATIVE); PROTEIN,URINE 30 mg/dL (NEGATIVE); URINE SPECIFIC GRAVITY 1.021
[2019-12-03 16:25] LABS: ALKALINE PHOSPHATASE 183 U/L (38-126); AMYLASE 143 U/L (30-110); ANION GAP 9 (5-19); ASPARTATE AMINO TRANSFERASE 66 U/L (14-36); BILIRUBIN,DIRECT 0.3 mg/dL (0.0-0.4); BILIRUBIN,TOTAL 0.5 mg/dL (0.2-1.3); BLOOD UREA NITROGEN 21 mg/dL (7-20); CALCIUM 9.1 mg/dL (8.4-10.2); CARBON DIOXIDE 30 mmol/L (22-30); CHLORIDE 101 mmol/L (98-107); GLUCOSE 210 mg/dL (75-110); POTASSIUM 4.6 mmol/L (3.6-5.0); TOTAL PROTEIN 7.9 g/dL (6.3-8.2)
[2019-12-03] MEDS ORDERED: NORMAL SALINE 1000 ML 1,000 ML IV PRN (16:36)
[2019-12-03] MEDS ORDERED: ONDANSETRON HCL INJ/PF 4 MG/2 ML SDV IV ONE (17:01)
--- NOTE | 2019-12-03 17:01 | ER Document Report ---
ED General - General Chief Complaint: Abdominal Pain Stated Complaint: VOMITING/NAUSEA/DIARRHEA Time Seen by Provider: 12/03/19 15:34 Primary Care Provider: AMANDA SABA FNP-BC [NURSE PRACTITIONER] - Follow up as needed Mode of Arrival: Ambulatory Notes: Patient is a 39-year-old white female with a past medical history of diabetes and chronic kidney disease who presents to the emergency department with a chief complaint of epigastric abdominal discomfort, nausea, vomiting and diarrhea that began 5 days ago. The patient reports that she is on new medication for diabetes, bydureon. She states she received her fourth shot on Thursday of this previous week. She states several hours after getting the injection she began vomiting. She is vomited 6 x 1 day and several times throughout the week accompanied by diarrhea. She states she is unable to tolerate oral intake without significant nausea and vomiting. She denies any fever, chills or night sweats. TRAVEL OUTSIDE OF THE [place] IN LAST 30 DAYS: No - Related Data Allergies/Adverse Reactions: onion Allergy (Verified 12/03/19 15:30) Penicillins Allergy (Verified 12/03/19 15:30) Home Medications: lantus. lisinopril Past Medical History - General Information source: Patient - Social History Smoking Status: Unknown if Ever Smoked Chew tobacco use (# tins/day): No Frequency of alcohol use: None Drug Abuse: None Family History: Arthritis, CVA, DM, Hypertension, Malignancy Patient has suicidal ideation: No Patient has homicidal ideation: No Endocrine Medical History: Reports: Hx Diabetes Mellitus Type 2 Renal/ Medical History: Reports: Hx Kidney Stones. Denies: Hx Peritoneal Dialysis GI Medical History: Reports: Hx Ulcer, Hx Colonoscopy, Hx Endoscopy Psychiatric Medical History: Denies: Hx Depression Past Surgical History: Reports: Hx Section, Hx Cholecystectomy, Hx Kidney (Renal Surgery) - lazer for stones - Immunizations Immunizations up to date: Yes Hx Diphtheria, Pertussis, Tetanus Vaccination: Yes Review of Systems - Review of Systems Gastrointestinal: Abdominal pain, Diarrhea, Nausea, Vomiting -: Yes All other systems reviewed and negative Physical Exam - Vital signs Vitals: Temp Pulse Resp BP Pulse Ox 98.2 F 101 H 18 129/77 H 100 12/03/19 15:25 12/03/19 15:25 12/03/19 15:25 12/03/19 15:25 12/03/19 15:25 - General General appearance: Appears well, Alert In distress: Mild - Respiratory Respiratory status: No respiratory distress Chest status: Nontender Breath sounds: Normal Chest palpation: Normal - Cardiovascular Rhythm: Regular Heart sounds: Normal auscultation - Abdominal Inspection: Normal Distension: No distension Bowel sounds: Normal Tenderness: Tender - Back Back: No: CVA tenderness - Neurological Neuro grossly intact: Yes Cognition: Normal Orientation: AAOx4 [place] Coma Scale Eye Opening: Spontaneous [place] Coma Scale Verbal: Oriented Shavonne Coma Scale Motor: Obeys Commands [place]onne Coma Scale Total: 15 Speech: Normal - Psychological Associated symptoms: Normal affect, Normal mood - Skin Skin Temperature: Warm Skin Moisture: Dry Skin Color: Normal Course - Re-evaluation Re-evalutation: 12/03/19 20:[address] Marques, the hospitalist. Discussed the case with him at length. We discussed the patient's lipase level as well as her other laboratory findings as well as a largely unremarkable ultrasound. Discussed the culprit of bydureon likely causing the patient's pancreatitis. We discussed the patient's presentation current symptoms and I requested admission to the hospital. Dr. Marques advises since the patient's bilirubin is normal the ultrasound is unremarkable that she is stable for discharge which is what he is recommending at this time. He feels she does not warrant or meet admission criteria. He recommended a clear liquid diet over the next 24 hours and bowel rest followed by a follow-up appointment on Thursday with her primary care doctor. - Vital Signs Vital signs: Temp Pulse Resp BP Pulse Ox 98.7 F 92 16 112/65 98 12/03/19 20:44 12/03/19 20:44 12/03/19 20:44 12/03/19 20:44 12/03/19 20:44 - Laboratory Result Diagrams: 12/03/19 15:41 12/03/19 15:41 Laboratory results interpreted by me: 12/03/19 12/03/19 12/03/19 15:41 15:41 15:41 Hgb 11.8 L Hct 35.0 L MCV 77 L MCH 26.0 L RDW 15.4 H BUN 21 H Glucose 210 H AST 66 H ALT 37 H Alkaline Phosphatase 183 H Amylase 143 H Lipase 1454.1 H Urine Protein 30 H Urine Blood SMALL H Urine Urobilinogen 2.0 H Ur Leukocyte Esterase LARGE H Discharge - Discharge Clinical Impression: Pancreatitis Qualifiers: Chronicity: acute Pancreatitis type: drug induced Acute pancreatitis complication: unspecified Qualified Code(s): K85.30 - Drug induced acute pancreatitis without necrosis or infection Condition: Stable Disposition: HOME, SELF-CARE Unit Admitted: Medical Floor - NA, to ID home Instructions: Pancreatitis ([facility]) Additional Instructions: The hospital doctor, Dr. Marques has advised he feels it is better for you to be discharged home for management of your acute pancreatitis. He recommended you stop the Bydureon. He also recommended that you institute bowel rest utilizing a clear liquid diet and call your doctor on Thursday morning first thing for repeat blood work, to discuss replacement for your current diabetic medication and for reevaluation. You will be sent home with a short course of pain medications and medicines for nausea and vomiting. Please follow-up on Thursday as this is very important. Between now and then should you feel any new symptoms, worse or if anything persists please return here or any ER imm ediately. Referrals: AMANDA SABA FNP-RUIZ [NURSE PRACTITIONER] - Follow up as needed
[2019-12-03] MEDS ORDERED: MORPHINE SULFATE 10 MG/ML INJ IV ONE (17:31)
[2019-12-03 17:55] LABS: VENOUS BLOOD BASE EXCESS 1.8 mmol/L; VENOUS BLOOD HCO3 28.3 mmol/L (20-32); VENOUS BLOOD PCO2 53.3 mmHg (35-63); VENOUS BLOOD PH 7.34 (7.30-7.42)
--- NOTE | 2019-12-03 20:42 | RADIOLOGY REPORT (SQ) ---
EXAM DESCRIPTION: US ABDOMEN LIMITED COMPLETED DATE/TME: 12/03/2019 16:36 CLINICAL HISTORY: 39 years, Female, RUQ and pancreas COMPARISON: None. TECHNIQUE: Axial 2-D grayscale images of the abdomen were acquired. LIMITATIONS: None. FINDINGS: Visualized portions of the pancreas appear normal in echogenicity. Abdominal aortic measurements are as follows: Proximal: 1.8 cm Mid: 1.4 cm Distal: Not visualized. The liver appears diffusely echogenic. No focal liver lesions are appreciated. It measures 18.5 cm in length. Antegrade flow is documented within the main portal vein. Common bile duct diameter measures 6 mm. The gallbladder is absent. Right kidney measures 12.2 x 5.6 x 6.2 cm in size. No hydronephrosis. No significant free fluid is identified within the imaged upper abdomen. IMPRESSION: No acute sonographic abnormality. Echogenic liver, suggestive of hepatic steatosis. copyright 2010 [employer]- All Rights Reserved
[2019-12-03 20:46] VITALS: BP 112/65
[2019-12-03] MEDS ORDERED: ONDANSETRON ODT 4 MG TAB (6 TAB/ER DISP) PO PRN (21:50)
[2019-12-03] MEDS ORDERED: HYDROCODONE/ACETAMINOPHEN 5-325 MG (6 TAB/ER DISP) PO PRN ×2 (21:50→22:11)
[2019-12-04] MEDS ORDERED: ONDANSETRON ODT 4 MG TAB (6 TAB/ER DISP) PO SCH
[2019-12-04] MEDS ORDERED: HYDROCODONE/ACETAMINOPHEN 5-325 MG (6 TAB/ER DISP) PO SCH
== END 2019-12-03 22:21 | disposition home or self-care (01) ==
LOC: ER 15:22
DX: K85.30 Drug induced acute pancreatitis without necrosis or infection (principal); T50.905A Adverse effect of unspecified drugs, medicaments and biological substances, initial encounter; R10.13 Epigastric pain; R11.2 Nausea with vomiting, unspecified; R19.7 Diarrhea, unspecified; E11.9 Type 2 diabetes mellitus without complications; Z79.4 Long term (current) use of insulin; Z79.899 Other long term (current) drug therapy; Z91.018 Allergy to other foods; Z88.0 Allergy status to penicillin
CPT/HCPCS: 99284; 96361; 96374; 96375; 36415; 82150; 83690; 85025; 80053; 81001; 82803; 76705; J2270; J2405; J7030

== ENCOUNTER 2020-07-25 18:22 | Observation (INO) | payer MEDICAID ==
[2020-07-25] MEDS ORDERED: CLINDAMYCIN 300 MG/D5W RTU 300 MG/50 ML RTUPB IV ONE (18:53)
--- NOTE | 2020-07-25 18:55 | ER Document Report ---
ED GI/ - General Chief Complaint: Abdominal Pain Stated Complaint: ABDOMINAL PAIN/FEVER Time Seen by Provider: 07/25/20 18:35 Notes: Patient is a 40-year-old female presents to the emergency department with a chief complaint of pain at her lower abdomen/pannus area. Patient states that she has had a "cyst" to the area and states that it comes and goes. States that she feels pain to the area and developed some redness. She has never had the area drained. EMS brought patient in and patient had a temperature of 102. They gave her Tylenol for her fever. Patient denies any contact with anyone who tested positive for COVID-19. Medical history includes diabetes and hypertension. Patient states that her blood sugar was in the 400s at home. TRAVEL OUTSIDE OF THE [place] IN LAST 30 DAYS: No - Related Data Allergies/Adverse Reactions: onion Allergy (Verified 07/25/20 18:43) Penicillins Allergy (Verified 07/25/20 18:43) Home Medications: lisinopril, lantus Past Medical History - Social History Smoking Status: Never Smoker Frequency of alcohol use: Occasional Family History: Arthritis, CVA, DM, Hypertension, Malignancy Patient has homicidal ideation: No Endocrine Medical History: Reports: Hx Diabetes Mellitus Type 2 Renal/ Medical History: Reports: Hx Kidney Stones. Denies: Hx Peritoneal Dialysis GI Medical History: Reports: Hx Ulcer, Hx Colonoscopy, Hx Endoscopy Psychiatric Medical History: Denies: Hx Depression Past Surgical History: Reports: Hx Section, Hx Cholecystectomy, Hx Kidney (Renal Surgery) - lazer for stones - Immunizations Immunizations up to date: Yes Hx Diphtheria, Pertussis, Tetanus Vaccination: Yes Review of Systems - Review of Systems Notes: REVIEW OF SYSTEMS: CONSTITUTIONAL : Denies recent unintentional weight loss. See HPI. EENT: Denies eye, ear, throat, or mouth pain, discharge, or symptoms. Denies nasal or sinus congestion. CARDIOVASCULAR: Denies chest pain. RESPIRATORY: Denies shortness of breath, cough, congestion, difficulty breathing, or wheezing. GASTROINTESTINAL: Denies nausea, vomiting, and diarrhea. Denies abdominal pain. Denies constipation. GENITOURINARY: Denies difficulty urinating, burning, blood in urine, urgency or frequency. MUSCULOSKELETAL: Denies neck and back pain. Denies joint pain or swelling. SKIN: See HPI. HEMATOLOGIC : Denies easy bruising or bleeding. LYMPHATIC: Denies swollen, painful, enlarged glands. NEUROLOGICAL: Denies no numbness or tingling denies weakness. Denies headache. Denies altered mental status. Denies alteration in speech. PSYCHIATRIC: Denies stress, anxiety, alteration in sleep patterns, or depression. All other systems reviewed and negative. Physical Exam - Vital signs Vitals: Temp 101.6 F H 07/25/20 18:44 - Notes Notes: PHYSICAL EXAMINATION: GENERAL: Appears obese, no acute distress. HEAD: Normocephalic, atraumatic. EYES: PERRL, conjunctiva normal, all extraocular movements intact, sclera nonicteric ENT: Moist mucous membranes. NECK: Supple, no noticeable swelling, redness, rash. Normal range of motion. LUNGS: Equal breath sounds bilaterally and clear to auscultation. No wheezes rales or rhonchi. CARDIOVASCULAR: S1-S2, regular rate, regular rhythm. Radial pulses 2+, normal. ABDOMEN: Normoactive bowel sounds. Soft, nontender, no guarding, no rebound tenderness, and no masses palpated. EXTREMITIES: Normal strength and range of motion, no pitting or edema. No cyanosis. NEUROLOGICAL: Moves all extremities upon command. Strength 5/5 in all extremities. PSYCH: Normal mood, normal affect. SKIN: Warm, dry. Erythema noted to pannus. Course - Re-evaluation Re-evalutation: 07/25/20 22:53 Hematology shows a leukocytosis of 14,800 with a left shift. Patient has 4 bands noted. Hemoglobin is 10.8 and hematocrit is 33. Patient also has a lactic acidosis of 2.9. Sodium is one third he 0.7. Chloride is 95. Glucose was 414. We will recheck blood sugar, as patient received a liter of IV fluids. 07/25/20 23:[address] Melendez, he will evaluate the patient. 07/26/20 01:38 Dr. Melendez has evaluated the patient. Patient will be admitted to the medical floor. - Vital Signs Vital signs: Temp Pulse Resp BP Pulse Ox 98.4 F 86 16 100/60 95 07/25/20 23:40 07/25/20 23:40 07/25/20 23:40 07/25/20 23:40 07/25/20 23:40 - Laboratory Result Diagrams: 07/25/20 18:33 07/25/20 18:33 Laboratory results interpreted by me: 07/25/20 07/25/20 07/25/20 18:33 18:33 19:00 WBC 14.8 H Hgb 10.8 L Hct 33.0 L MCV 78 L MCH 25.5 L RDW 15.7 H Seg Neuts % (Manual) 81 H Monocytes % (Manual) 2 L Abs Neuts (Manual) 12.6 H Sodium 130.7 L Chloride 95 L Glucose 414 H* POC Glucose Lactic Acid Total Protein 6.2 L Albumin 3.2 L Urine Glucose (UA) >=500 H Urine Blood SMALL H Ur Leukocyte Esterase MODERATE H 07/25/20 07/25/20 19:00 22:54 WBC Hgb Hct MCV MCH RDW Seg Neuts % (Manual) Monocytes % (Manual) Abs Neuts (Manual) Sodium Chloride Glucose POC Glucose 416 H* Lactic Acid 2.9 H Total Protein Albumin Urine Glucose (UA) Urine Blood Ur Leukocyte Esterase Discharge - Discharge Clinical Impression: Hyperglycemia Urinary tract infection Qualifiers: Urinary tract infection type: site unspecified Hematuria presence: without hematuria Qualified Code(s): N39.0 - Urinary tract infection, site not specified Sepsis Qualifiers: Sepsis type: sepsis due to unspecified organism Sepsis acute organ dysfunction status: unspecified Qualified Code(s): A41.9 - Sepsis, unspecified organism Cellulitis Qualifiers: Site of cellulitis: trunk Site of cellulitis of trunk: abdominal wall Qualified Code(s): L03.311 - Cellulitis of abdominal wall Condition: Stable Disposition: ADMITTED INPATIENT Admitting Provider: Dr. Melendez Unit Admitted: Medical Floor
[2020-07-25 18:57] LABS: HEMOGLOBIN 10.8 g/dL (12.0-15.5); MEAN CORPUSCULAR HEMOGLOBIN 25.5 pg (27.0-33.4); MEAN CORPUSCULAR HGB CONC 32.8 g/dL (32.0-36.0); MEAN CORPUSCULAR VOLUME 78 fl (80-97); PLATELET COUNT 214 10^3/uL (150-450); RED BLOOD COUNT 4.25 10^6/uL (3.72-5.28); RED CELL DISTRIBUTION WIDTH 15.7 % (11.5-14.0); WHITE BLOOD COUNT 14.8 10^3/uL (4.0-10.5)
[2020-07-25] MEDS ORDERED: NORMAL SALINE 1000 ML 1,000 ML IV ONE ×2 (18:58→22:59)
[2020-07-25 19:10] LABS: ALBUMIN 3.2 g/dL (3.5-5.0); ALKALINE PHOSPHATASE 67 U/L (38-126); ANION GAP 11 (5-19); ASPARTATE AMINO TRANSFERASE 14 U/L (14-36); BILIRUBIN,TOTAL 0.3 mg/dL (0.2-1.3); BLOOD UREA NITROGEN 17 mg/dL (7-20); CALCIUM 9.2 mg/dL (8.4-10.2); CARBON DIOXIDE 25 mmol/L (22-30); CHLORIDE 95 mmol/L (98-107); POTASSIUM 4.5 mmol/L (3.6-5.0); TOTAL PROTEIN 6.2 g/dL (6.3-8.2)
[2020-07-25 19:13] LABS: ABSOLUTE LYMPHOCYTES# (MANUAL) 1.9 10^3/uL (0.5-4.7); ABSOLUTE MONOCYTES # (MANUAL) 0.3 10^3/uL (0.1-1.4); BAND NEUTROPHILS % (MANUAL) 4 % (3-5); BASOPHILS % (MANUAL) 0 % (0-2); EOSINOPHILS % (MANUAL) 0 % (0-6); LYMPHOCYTES % (MANUAL) 13 % (13-45); MONOCYTES % (MANUAL) 2 % (3-13); SEGMENTED NEUTROPHILS % (MAN) 81 % (42-78); TOTAL CELLS COUNTED 100
[2020-07-25 19:19] LABS: ANISOCYTOSIS SLIGHT; PLATELET COMMENT ADEQUATE
[2020-07-25 19:32] LABS: GLUCOSE 414 mg/dL (75-110)
[2020-07-25 19:53] LABS: APPEARANCE,URINE SLIGHTLY-CLOUDY; BILIRUBIN,URINE NEGATIVE (NEGATIVE); COLOR,URINE STRAW; GLUCOSE, URINE >=500 mg/dL (NEGATIVE); KETONES,URINE NEGATIVE (NEGATIVE); LEUKOCYTE ESTERASE,URINE MODERATE (NEGATIVE); NITRITE,URINE NEGATIVE (NEGATIVE); PROTEIN,URINE NEGATIVE (NEGATIVE); URINE SPECIFIC GRAVITY 1.024; UROBILINOGEN,URINE NEGATIVE mg/dL (<2.0)
[2020-07-25] MEDS ORDERED: INSULIN REG, HUMAN 100 UNIT/ML 3 ML VIAL (PYX) IV ONE (22:58)
--- NOTE | 2020-07-25 22:58 | RADIOLOGY REPORT (SQ) ---
CLINICAL INDICATION: eval possible abcess to pannis area. Superficial inflammatory change lower abdomen. TECHNIQUE: Contrast enhanced spiral axial CT imaging was obtained of the abdomen and pelvis with multiplanar reconstructions. This exam was performed according to our departmental dose-optimization program, which includes automated exposure control, adjustment of the mA and/or kV according to patient size and/or use of iterative reconstruction techniques. Additional delayed phase imaging COMPARISON: August 18, 2014. CORRELATION: None. FINDINGS: Abdomen: The lung bases demonstrate chronic changes. Scarring left base. The heart is top normal. No evidence of pleural or pericardial fluid. The liver is fatty infiltrated. This is improved when compared to prior. The liver is enlarged at 22.6 cm craniocaudad. The gallbladder is surgically absent. The pancreas is unremarkable. The spleen is unremarkable. The adrenals are unremarkable. The kidneys appear grossly normal without evidence of urolithiasis or hydronephrosis. Tiny fat-containing hernia at the level the umbilicus There is no evidence of free air. No free fluid. No bulky adenopathy. Abdominal aorta is nonaneurysmal. Pelvis: The bowel is nonobstructed. The bowel is unopacified with oral contrast. Pelvic contents are unremarkable. The appendix is not seen. No focal inflammatory change. Visualized bones are unremarkable. Superficially of the pannus inferiorly there is thickening of the skin. No drainable collection IMPRESSION: Imaging is degraded by patient motion, with resultant artifact. The best possible images were obtained. Hepatic steatosis, improved from prior. Hepatomegaly.. No discrete drainable collection
[2020-07-25] MEDS ORDERED: MORPHINE SULFATE 10 MG/ML INJ IV ONE (23:55)
[2020-07-26] MEDS ORDERED: RINGERS SOLUTION,LACTATED 1,000 ML IV PRN (01:19)
[2020-07-26] MEDS ORDERED: ONDANSETRON HCL INJ/PF 4 MG/2 ML SDV IV PRN (01:19)
[2020-07-26] MEDS ORDERED: ACETAMINOPHEN 325 MG TABLET PO PRN (01:19)
--- NOTE | 2020-07-26 01:25 | PDOC H&P ---
History of Present Illness Admission Date/PCP: LISA NGUYỄN NP Patient complains of: Abdominal wall skin redness and pain History of Present Illness: PERLA GRULLON is a 40 year old female with a history of poorly controlled diabetes and obesity who presents with 2 days duration of right lower quadrant abdominal wall redness and pain. She states that this started as a small cystic swelling which is after expanded to current size. She also reports that she had a fever of 102 at home and was given Tylenol by EMS. She states that she did not inject insulin or any other medication or drug near the area of the skin lesion. She states that she sometimes feels nauseated but denies vomiting or any bowel habit change. She states that she has not been monitoring her blood sugar regularly at home and she missed her last dose of insulin a day ago. She denies similar skin lesion on any other part of her body. She also denies any cough, shortness of breath, congestion, runny nose, sore throat or any recent sick contact history. Past Medical History Endocrine Medical History: Reports: Diabetes Mellitus Type 2 Psychiatric Medical History: Denies: Depression Past Surgical History Past Surgical History: Reports: Section, Cholecystectomy Social History Information Source: Patient Lives with: Family Smoking Status: Never Smoker Frequency of Alcohol Use: None Hx Recreational Drug Use: Yes - 15 years ago Drugs: Other Hx Prescription Drug Abuse: No - Advance Directive Resuscitation Status: Full Code Family History Family History: Arthritis, CVA, DM, Hypertension, Malignancy Parental Family History Reviewed: Yes Children Family History Reviewed: Yes Sibling(s) Family History Reviewed.: Yes Medication/Allergy Home Medications: Insulin Aspart [Novolog Insulin (Aspart) 100 unit/mL] 0 unit SUBCUT .SLD SCALE 12/20/18 Doxycycline Hyclate [Vibramycin 100 mg Tablet] 100 mg PO Q12 #10 tablet 12/23/18 NPH, Human Insulin Isophane [Humulin N (NPH) Insulin 100 Unit/1 ml 3 ml] 15 unit INJ BID #3 vial 12/23/18 Cephalexin Monohydrate [Keflex 500 mg Capsule] 500 mg PO QID #28 capsule 01/16/19 Promethazine HCl [Phenergan 25 mg Tablet] 25 mg PO Q6H PRN #15 tablet 01/16/19 Methocarbamol [Robaxin 750 mg Tablet] 750 mg PO Q4 #30 tablet 05/21/19 Ofloxacin [Ocuflox] 1 drop OP QID 7 Days #1 bottle 10/24/19 Ofloxacin [Ocuflox] 5 ml OP QID #10 ml 10/24/19 Allergies/Adverse Reactions: mustard Allergy (Verified 07/26/20 04:08) onion Allergy (Verified 07/25/20 18:43) Penicillins Allergy (Verified 07/25/20 18:43) Review of Systems Constitutional: ABSENT: chills, fever(s), headache(s), weight gain, weight loss Eyes: ABSENT: visual disturbances Ears: ABSENT: hearing changes Nose, Mouth, and Throat: ABSENT: as per HPI, headache(s), mouth pain, sore throat, vertigo, other Cardiovascular: ABSENT: chest pain, dyspnea on exertion, edema, orthropnea, palpitations Respiratory: ABSENT: cough, hemoptysis Gastrointestinal: PRESENT: as per HPI Genitourinary: PRESENT: dysuria Musculoskeletal: ABSENT: joint swelling Integumentary: PRESENT: as per HPI Neurological: ABSENT: abnormal gait, abnormal speech, confusion, dizziness, foca l weakness, syncope Psychiatric: ABSENT: anxiety, depression, homidical ideation, suicidal ideation Endocrine: PRESENT: polydipsia, polyuria Hematologic/Lymphatic: ABSENT: easy bleeding, easy bruising Physical Exam Vital Signs: Temp Pulse Resp BP Pulse Ox 98.4 F 86 16 100/60 95 07/25/20 23:40 07/25/20 23:40 07/25/20 23:40 07/25/20 23:40 07/25/20 23:40 Intake & Output 07/24/20 07/25/20 07/26/20 06:59 06:59 06:59 Intake Total 2049 Balance 2049 Weight 110.223 kg Additional comments: GENERAL APPEARANCE: Alert and oriented x4, in no acute distress HEENT: Normocephalic and atraumatic. No scleral icterus. Moist oral mucosa NECK: Supple. Trachea is midline. No evidence of thyroid enlargement. No lymphadenopathy or tenderness. No carotid bruit. No JVD CHEST: Symmetric. Nontender to palpation. LUNGS: Breath sounds are equal and clear bilaterally. No wheezes, rhonchi, or rales. HEART: Regular rate and rhythm with normal S1 and S2. No murmurs, gallops, or rubs. ABDOMEN: is soft, active bowel sound, no direct or rebound tenderness apart from the skin lesion area. No organomegaly or mass detected. No CVA tenderness EXTREMITIES: No cyanosis, clubbing, or edema. MUSCULOSKELETAL: No deformity, atrophy or swelling noted PSYCHIATRIC: Recent and remote memory is intact. Appropriate mood and affect. SKIN: Has a 10 x 12 cm hyperemic area on the right lower quadrant area, has diff erential warmth and tenderness NEUROLOGIC: No focal sensory or motor deficits are noted. Results Laboratory Results: 07/25/20 18:33 07/25/20 18:33 07/25/20 07/25/20 07/25/20 18:33 18:33 18:33 WBC 14.8 H RBC 4.25 Hgb 10.8 L Hct 33.0 L MCV 78 L MCH 25.5 L MCHC 32.8 RDW 15.7 H Plt Count 214 Seg Neutrophils % Not Reportable Sodium 130.7 L Potassium 4.5 Chloride 95 L Carbon Dioxide 25 Anion Gap 11 BUN 17 Creatinine 0.69 Est GFR ( Amer) > 60 Glucose 414 H* Lactic Acid Calcium 9.2 Total Bilirubin 0.3 AST 14 Alkaline Phosphatase 67 Total Protein 6.2 L Albumin 3.2 L Serum HCG, Qual NEGATIVE Urine Color Urine Appearance Urine pH Ur Specific [place] Urine Protein Urine Glucose (UA) Urine Ketones Urine Blood Urine Nitrite Ur Leukocyte Esterase Urine WBC (Auto) Urine RBC (Auto) 07/25/20 07/25/20 19:00 19:00 WBC RBC Hgb Hct MCV MCH MCHC RDW Plt Count Seg Neutrophils % Sodium Potassium Chloride Carbon Dioxide Anion Gap BUN Creatinine Est GFR ( Amer) Glucose Lactic Acid 2.9 H Calcium Total Bilirubin AST Alkaline Phosphatase Total Protein Albumin Serum HCG, Qual Urine Color STRAW Urine Appearance SLIGHTLY-CLOUDY Urine pH 6.0 Ur Specific [place] 1.024 Urine Protein NEGATIVE Urine Glucose (UA) >=500 H Urine Ketones NEGATIVE Urine Blood SMALL H Urine Nitrite NEGATIVE Ur Leukocyte Esterase MODERATE H Urine WBC (Auto) 133 Urine RBC (Auto) 1 Impressions: Abdomen/Pelvis CT 07/25/20 20:14 IMPRESSION: Imaging is degraded by patient motion, with resultant artifact. The best possible images were obtained. Hepatic steatosis, improved from prior. Hepatomegaly.. No discrete drainable collection Assessment and Plan - Diagnosis (1) Cellulitis Qualifiers: Site of cellulitis: trunk Site of cellulitis of trunk: abdominal wall Qualified Code(s): L03.311 - Cellulitis of abdominal wall Is this a current diagnosis for this admission?: Yes Plan: Presents with anterior abdominal cellulitis CT abdomen with a limited study due to patient motion artifact but showed no discrete drainable collection or subcutaneous gas Started on clindamycin Follow-up with blood culture (2) Sepsis Qualifiers: Sepsis type: sepsis due to unspecified organism Sepsis acute organ dysfunc tion status: unspecified Qualified Code(s): A41.9 - Sepsis, unspecified organism Is this a current diagnosis for this admission?: Yes Plan: Patient needs SIRS criteria for sepsis, had leukocytosis and fever of 102 But qSOFA score was 1/3 which is low risk Elevated WBC and lactic acidosis likely due to hypovolemia from osmotic diuresis Continue clindamycin IV Continue IV hydration and recheck lactic acid level Follow-up with blood culture Monitor vital signs closely (3) UTI (urinary tract infection) Is this a current diagnosis for this admission?: Yes Plan: Urinalysis suggestive of UTI Follow-up with urine culture Ciprofloxacin 500 mg daily for 3 days (4) Morbid obesity with BMI of 40.0-44.9, adult Is this a current diagnosis for this admission?: Yes Plan: Discussed about lifestyle changes including nutrition and regular exercise (5) Diabetes mellitus with hyperglycemia Is this a current diagnosis for this admission?: Yes Plan: Blood sugar on presentation was 414 Likely due to medication noncompliance Restarted her on Lantus insulin 25 units daily Placed her on sliding scale insulin, Accu-Cheks, hypoglycemia protocol Encouraged patient to be compliant with her medication - Time Time Spent with patient: 35 or more minutes Total Critical Time (Minutes): 45 Medications reviewed and adjusted accordingly: Yes Anticipated Discharge Disposition: Home, Self Care Anticipated Discharge Timeframe: within 48 hours - Inpatient Certification Based on my medical assessment, after consideration of the patient's comorbidi ties, presenting symptoms, or acuity I expect that the services needed warrant INPATIENT care.: Yes I certify that my determination is in accordance with my understanding of Valentina green's requirements for reasonable and necessary INPATIENT services [42 CFR 412.3e].: Yes Medical Necessity: Need Close Monitoring Due to Risk of Patient Decompensation, Need for IV Antibiotics Post Hospital Care: D/C or Transfer Summary
[2020-07-26] MEDS ORDERED: DEXTROSE 50%-WATER 25 GM/50 ML DISP.SYRIN IV PRN ×2 (01:35)
[2020-07-26] MEDS ORDERED: GLUCAGON,HUMAN RECOMB 1 MG INJ IM PRN (01:35)
[2020-07-26] MEDS ORDERED: DEXTROSE 40% GEL 15 GM TUBE PO PRN ×2 (01:35)
[2020-07-26] MEDS: CLINDAMYCIN 600 MG/D5W RTU 600 MG/50 ML RTUPB IV SCH ×2 (02:00→09:39)
[2020-07-26] MEDS: INSULIN REG, HUMAN 100 UNIT/ML 3 ML VIAL (PYX) SUBCUT SCH ×2 (06:49→11:39)
[2020-07-26 07:46] LABS: ABSOLUTE EOSINOPHILS # (AUTO) 0.1 10^3/uL (0.0-0.6); ABSOLUTE LYMPHOCYTES (AUTO) 1.5 10^3/uL (0.5-4.7); ABSOLUTE MONOCYTES (AUTO) 0.7 10^3/uL (0.1-1.4); BASOPHILS % (AUTO) 0.3 % (0-2); EOSINOPHILS % (AUTO) 1.5 % (0-6); HEMATOCRIT 30.2 % (36.0-47.0); LYMPHOCYTES % (AUTO) 16.3 % (13-45); MEAN CORPUSCULAR HEMOGLOBIN 25.7 pg (27.0-33.4); MEAN CORPUSCULAR VOLUME 78 fl (80-97); PLATELET COUNT 196 10^3/uL (150-450); RED BLOOD COUNT 3.88 10^6/uL (3.72-5.28); RED CELL DISTRIBUTION WIDTH 15.6 % (11.5-14.0); SEGMENTED NEUTROPHILS % (AUTO) 74.9 % (42-78); TOTAL CELLS COUNTED % (AUTO) 100 %; WHITE BLOOD COUNT 9.4 10^3/uL (4.0-10.5)
[2020-07-26 09:07] LABS: ANION GAP 6 (5-19); BLOOD UREA NITROGEN 16 mg/dL (7-20); CALCIUM 8.8 mg/dL (8.4-10.2); CARBON DIOXIDE 29 mmol/L (22-30); CHLORIDE 101 mmol/L (98-107); GLUCOSE 303 mg/dL (75-110); POTASSIUM 4.5 mmol/L (3.6-5.0)
[2020-07-26] MEDS ORDERED: CIPROFLOXACIN HCL 500 MG TABLET PO SCH (10:00)
[2020-07-26] MEDS ORDERED: ENOXAPARIN SODIUM INJ 40 MG/0.4 ML DISP.SYRIN SUBCUT SCH (10:00)
[2020-07-26] MEDS ORDERED: INSULIN GLARGINE,HUM.REC.ANLOG 1,000 UNIT/10 ML VIAL SUBCUT SCH (10:00)
[2020-07-26] MEDS ORDERED: LISINOPRIL 5 MG TABLET PO SCH (12:00)
[2020-07-26] MEDS ORDERED: NORMAL SALINE 1000 ML 1,000 ML IV ONE (12:22)
[2020-07-26 13:49] VITALS: BP 112/68
--- NOTE | 2020-07-26 17:05 | PDOC DISCHARGE SUMMARY ---
Impression - Admit/DC Date/PCP Admission Date/Primary Care Provider: 07/26/20 01:37 LISA NGUYỄN NP Discharge Date: 07/26/20 - Discharge Diagnosis (1) Cellulitis, abdominal wall Is this a current diagnosis for this admission?: Yes (2) Sepsis Is this a current diagnosis for this admission?: Yes (3) UTI (urinary tract infection) Is this a current diagnosis for this admission?: Yes (4) Diabetes mellitus with hyperglycemia Is this a current diagnosis for this admission?: Yes (5) Morbid obesity with BMI of 40.0-44.9, adult Is this a current diagnosis for this admission?: Yes - Assessment Summary: Ms. Perla Smith is a 40-year-old female with past medical history of poorly controlled diabetes mellitus who presented for evaluation and treatment of RLQ abdominal wall cellulitis. On initial presentation patient was found to be febrile with a neutrophilic leukocytosis and lactic acidosis. This lead to her admission for further observation and treatment of early SEPSIS secondary to cellulitis. Her fever resolved with Tylenol therapy and leukocytosis as well as lactic acidosis subsided with IV fluids and initiation of Clindamycin IV. We were able to transition patient from IV antibiotics to oral clindamycin and she was given a prescription for Clindamycin 450mg TID x5 days. Additionally patient was found to have urinary tract infection as indicated on UA. Pt reports history of recurrent UTIs with most recent approximately one month ago. No treatment indicated at this time. Patient's course complicated with hyperglycemia with blood glucose in 400s on admission. Current home medications include Lantus 40u nightly and Empagliflozine 10mg daily. Heme A1c 13. Increased Lantus to 50u nightly. She is to continue Empagliflozine at current dose daily. Educated on importance of glycemic control. She was made aware of medication changes and is agreeable to this means of treatment. She is ready for discharge and happy to go home. She is to f/u with her PCP within one week of discharge. - Additional Information Resuscitation Status: Full Code Discharge Diet: Diabetic Discharge Activity: Activity As Tolerated, Walk Frequently Referrals: LISA NGUYỄN, SANIYA [Primary Care Provider] - (pt will have call and see when the doctor would like her to come back) ADE FUNG DO [NO LOCAL MD] - 08/08/20 10:30 am (with dr. anjum del rosario ) Prescriptions: Clindamycin HCl [Cleocin 150 mg Capsule] 450 mg PO TID #45 capsule Insulin Glargine,Hum.rec.anlog [Lantus Insulin 100 Unit/1 ml 10 ml] 50 unit SQ QHS #10 ml Home Medications: Clindamycin HCl [Cleocin 150 mg Capsule] 450 mg PO TID #45 capsule 07/26/20 Empagliflozin [Jardiance] 10 mg PO DAILY 07/26/20 Insulin Glargine,Hum.rec.anlog [Lantus Insulin 100 Unit/1 ml 10 ml] 50 unit SQ QHS #10 ml 07/26/20 Lisinopril [Zestril] 2.5 mg PO DAILY 07/26/20 History of Present Illiness History of Present Illness: As per admitting HPI on 07/26/2020 "PERLA GRULLON is a 40 year old female with a history of poorly controlled diabetes and obesity who presents with 2 days duration of right lower quadrant abdominal wall redness and pain. She states that this started as a small cystic swelling which is after expanded to current size. She also reports that she had a fever of 102 at home and was given Tylenol by EMS. She states that she did not inject insulin or any other medication or drug near the area of the skin lesion. She states that she sometimes feels nauseated but denies vomiting or any bowel habit change. She states that she has not been monitoring her blood sugar regularly at home and she missed her last dose of insulin a day ago. She denies similar skin lesion on any other part of her body. She also denies any cough, shortness of breath, congestion, runny nose, sore throat or any recent sick contact history." Physical Exam Vital Signs: Temp Pulse Resp BP Pulse Ox 98.8 F 79 18 112/68 97 07/26/20 13:46 07/26/20 13:46 07/26/20 13:46 07/26/20 13:46 07/26/20 13:46 Intake & Output 07/25/20 07/26/20 07/27/20 06:59 06:59 06:59 Intake Total 2049 1100 Balance 2049 1100 Weight 110.2 kg General appearance: PRESENT: no acute distress, cooperative, obese Head exam: PRESENT: atraumatic, normocephalic Eye exam: PRESENT: conjunctiva pink, EOMI. ABSENT: scleral icterus Mouth exam: PRESENT: moist, tongue midline Neck exam: PRESENT: full ROM. ABSENT: lymphadenopathy, tenderness Respiratory exam: PRESENT: clear to auscultation cruz, symmetrical, unlabored. ABSENT: crackles, decreased breath sounds, rales, tachypnea Cardiovascular exam: PRESENT: RRR, +S1, +S2. ABSENT: diastolic murmur, systolic murmur, tachycardia Pulses: PRESENT: normal radial pulses GI/Abdominal exam: PRESENT: normal bowel sounds, soft. ABSENT: distended, firm, tenderness Extremities exam: PRESENT: full ROM. ABSENT: calf tenderness, clubbing, tenderness Musculoskeletal exam: PRESENT: ambulatory, full ROM. ABSENT: deformity, dislocation Neurological exam: PRESENT: alert, awake, oriented to person, oriented to place, oriented to time, oriented to situation, CN II-XII grossly intact. ABSENT: altered, motor sensory deficit Psychiatric exam: PRESENT: appropriate affect, normal mood Skin exam: PRESENT: dry - Mulitple areas of dry and pealing skin noted on bilateral lower extremities, intact, other - There is a 10 x 12 cm hyperemic area right lower quadrant abdominal. Warmth to the area without tenderness. There is a blue pen marking the erythema margins. Erythema remains within margin. Non-purulent. No skin opening or area of discharge. Results Laboratory Results: WBC 9.4 10^3/uL (4.0-10.5) 07/26/20 07:34 RBC 3.88 10^6/uL (3.72-5.28) 07/26/20 07:34 Hgb 10.0 g/dL (12.0-15.5) L 07/26/20 07:34 Hct 30.2 % (36.0-47.0) L 07/26/20 07:34 MCV 78 fl (80-97) L 07/26/20 07:34 MCH 25.7 pg (27.0-33.4) L 07/26/20 07:34 MCHC 33.0 g/dL (32.0-36.0) 07/26/20 07:34 RDW 15.6 % (11.5-14.0) H 07/26/20 07:34 Plt Count 196 10^3/uL (150-450) 07/26/20 07:34 Lymph % (Auto) 16.3 % (13-45) 07/26/20 07:34 [place] % (Auto) 7.0 % (3-13) 07/26/20 07:34 Eos % (Auto) 1.5 % (0-6) 07/26/20 07:34 Baso % (Auto) 0.3 % (0-2) 07/26/20 07:34 Absolute Neuts (auto) 7.0 10^3/uL (1.7-8.2) 07/26/20 07:34 Absolute Lymphs (auto) 1.5 10^3/uL (0.5-4.7) 07/26/20 07:34 Absolute Monos (auto) 0.7 10^3/uL (0.1-1.4) 07/26/20 07:34 Absolute Eos (auto) 0.1 10^3/uL (0.0-0.6) 07/26/20 07:34 Absolute Basos (auto) 0.0 10^3/uL (0.0-0.2) 07/26/20 07:34 Total Counted 100 07/25/20 18:33 Seg Neutrophils % 74.9 % (42-78) 07/26/20 07:34 Seg Neuts % (Manual) 81 % (42-78) H 07/25/20 18:33 Band Neutrophils % 4 % (3-5) 07/25/20 18:33 Lymphocytes % (Manual) 13 % (13-45) 07/25/20 18:33 Monocytes % (Manual) 2 % (3-13) L 07/25/20 18:33 Eosinophils % (Manual) 0 % (0-6) 07/25/20 18:33 Basophils % (Manual) 0 % (0-2) 07/25/20 18:33 Abs Neuts (Manual) 12.6 10^3/uL (1.7-8.2) H 07/25/20 18:33 Abs Lymphs (Manual) 1.9 10^3/uL (0.5-4.7) 07/25/20 18:33 Abs Monocytes (Manual) 0.3 10^3/uL (0.1-1.4) 07/25/20 18:33 Absolute Eos (Manual) 0.0 10^3/uL (0.0-0.6) 07/25/20 18:33 Abs Basophils (Manual) 0.0 10^3/uL (0.0-0.2) 07/25/20 18:33 Platelet Comment ADEQUATE 07/25/20 18:33 Anisocytosis SLIGHT 07/25/20 18:33 Microcytosis SLIGHT 07/25/20 18:33 Sodium 135.5 mmol/L (137-145) L 07/26/20 07:34 Potassium 4.5 mmol/L (3.6-5.0) 07/26/20 07:34 Chloride 101 mmol/L (98-107) 07/26/20 07:34 Carbon Dioxide 29 mmol/L (22-30) 07/26/20 07:34 Anion Gap 6 (5-19) 07/26/20 07:34 BUN 16 mg/dL (7-20) 07/26/20 07:34 Creatinine 0.77 mg/dL (0.52-1.25) 07/26/20 07:34 Est GFR ( Amer) > 60 (>60) 07/26/20 07:34 Est GFR (MDRD) Non-Af > 60 (>60) 07/26/20 07:34 Glucose 303 mg/dL (75-110) H 07/26/20 07:34 POC Glucose 293 mg/dL (70-110) H 07/26/20 11:09 Hemoglobin A1c % 12.6 % (4.7-6.0) H 07/26/20 07:34 Lactic Acid 1.4 mmol/L (0.7-2.1) 07/26/20 01:18 Calcium 8.8 mg/dL (8.4-10.2) 07/26/20 07:34 Total Bilirubin 0.3 mg/dL (0.2-1.3) 07/25/20 18:33 Direct Bilirubin 0.0 mg/dL (0.0-0.4) 07/25/20 18:33 Neonat Total Bilirubin Not Reportable 07/25/20 18:33 Neonat Direct Bilirubin Not Reportable 07/25/20 18:33 Neonat Indirect Bili Not Reportable 07/25/20 18:33 AST 14 U/L (14-36) 07/25/20 18:33 ALT 9 U/L (<35) 07/25/20 18:33 Alkaline Phosphatase 67 U/L (38-126) 07/25/20 18:33 Total Protein 6.2 g/dL (6.3-8.2) L 07/25/20 18:33 Albumin 3.2 g/dL (3.5-5.0) L 07/25/20 18:33 Serum HCG, Qual NEGATIVE (NEGATIVE) 07/25/20 18:33 Beta HCG, Quant < 2.39 mIU/mL (0.0-6.15) 07/25/20 18:33 Total Beta HCG NEGATIVE (NEGATIVE) 07/25/20 18:33 Urine Color STRAW 07/25/20 19:00 Urine Appearance SLIGHTLY-CLOUDY 07/25/20 19:00 Urine pH 6.0 (5.0-9.0) 07/25/20 19:00 Ur Specific [place] 1.024 07/25/20 19:00 Urine Protein NEGATIVE mg/dL (NEGATIVE) 07/25/20 19:00 Urine Glucose (UA) >=500 mg/dL (NEGATIVE) H 07/25/20 19:00 Urine Ketones NEGATIVE mg/dL (NEGATIVE) 07/25/20 19:00 Urine Blood SMALL (NEGATIVE) H 07/25/20 19:00 Urine Nitrite NEGATIVE (NEGATIVE) 07/25/20 19:00 Urine Bilirubin NEGATIVE (NEGATIVE) 07/25/20 19:00 Urine Urobilinogen NEGATIVE mg/dL (<2.0) 07/25/20 19:00 Ur Leukocyte Esterase MODERATE (NEGATIVE) H 07/25/20 19:00 Urine WBC (Auto) 133 /HPF 07/25/20 19:00 Urine RBC (Auto) 1 /HPF 07/25/20 19:00 Urine Bacteria (Auto) TRACE /HPF 07/25/20 19:00 Urine WBC Clumps FEW /HPF 07/25/20 19:00 Squamous Epi Cells Auto 1 /HPF 07/25/20 19:00 Urine Mucus (Auto) RARE /LPF 07/25/20 19:00 Urine Ascorbic Acid NEGATIVE (NEGATIVE) 07/25/20 19:00 Urine HCG, Qual NEGATIVE (NEGATIVE) 07/25/20 19:00 Impressions: Abdomen/Pelvis CT 07/25/20 20:14 IMPRESSION: Imaging is degraded by patient motion, with resultant artifact. The best possible images were obtained. Hepatic steatosis, improved from prior. Hepatomegaly.. No discrete drainable collection Plan Plan of Treatment: Abdominal wall cellulitis: Non-purulent. Clindamycin 450mg TID x5 days. Monitor for spread beyond margin. Sepsis: More so presented as early sepsis meeting SIRS criteria, though low qSOFA score 1/3. Resolved with IVF. Leukocytosis and lactic acidosis resolved. Consistently afebrile since admission. No further attention required. BC pending, will contact pt if positive. UTI: Hx of frequent and recurrent UTIs. Most [id number]. + dysuria, +UA, + urine culture. DM poorly controlled: Elevated glucose >400 on admission. Heme A1c 13%. Current regimen Lantus 40u QHS and Empagliflozin 10mg daily. Increased Lantus to 50u QHS. Recommend BS check TID with recording. Close follow up with PCP for continued glycemic control. Follow up with PCP jonah 1 week of discharge. Goals: Gain glycemic control. Time Spent: Greater than 30 Minutes Stroke Is this a Stroke Patient?: No Acute Heart Failure Is this a Heart Failure Patient?: No
[2020-07-26] MEDS ORDERED: DOXYCYCLINE HYCLATE 100 MG TABLET PO SCH (22:00)
[2020-07-27] MEDS ORDERED: (PENDING PHARMACY ID) (Lisinopril [Zestril] 2.5 MG) PO SCH (10:00)
== END 2020-07-26 15:10 | disposition home or self-care (01) ==
LOC: ER 18:22 → EH 07-26 01:37 → 4W 07-26 03:15
PROVIDERS: ADMIT Student in an Organized Health Care Education/Training Program; ATTEND Physician Assistant
DX: L03.311 Cellulitis of abdominal wall (principal); A41.9 Sepsis, unspecified organism; N39.0 Urinary tract infection, site not specified; E11.65 Type 2 diabetes mellitus with hyperglycemia; E66.01 Morbid (severe) obesity due to excess calories; Z68.41 Body mass index [BMI] 40.0-44.9, adult; I10 Essential (primary) hypertension; Z87.440 Personal history of urinary (tract) infections; Z79.4 Long term (current) use of insulin; Z79.899 Other long term (current) drug therapy; Z90.49 Acquired absence of other specified parts of digestive tract
CPT/HCPCS: 99285; 96361; 96375; 96365; 36415 ×2; 87040; 87086; 82962 ×2; 84702; 83605 ×2; 84703; 85025 ×2; 81025; 87088; 80048; 80053; 81001; 87186; 83036; 74177; G0378 ×2; S0077; J3490 ×2; J1815 ×3; J2270; J1650; J7030 ×2; J7120